=== PATIENT | female | born 1965 | race Caucasian/White ===

== ENCOUNTER 2022-02-01 16:14 | Inpatient (IN) | payer BC ==
[2022-02-01] VITALS (8 sets, daily range): BP systolic 90–172; BP diastolic 60–124
[~2022-02-01] VITALS: Ht 170.2 cm; Wt 128.7 kg
[2022-02-01] MEDS ORDERED: fentaNYL PF VIAL 100 MCG/2 ML VIAL ONE (16:27)
[2022-02-01 16:45] LABS: BASE EXCESS ABG -7 mmol/L (-3-3); HCO3 ABG 19 mmol/L (21-28); PCO2 ABG 39 mmHg (35-46); PO2 ABG 228 mmHg (75-108); SAT O2 ABG 99 % (92-99)
[2022-02-01] MEDS ORDERED: MIDAZOLAM 100mg/100ml NS BAG 100 ML IV ONE ×2 (16:45→17:00)
[2022-02-01] MEDS ORDERED: MIDAZOLAM HCL/PF 5 MG/5 ML VIAL. NS ONE (16:45)
[2022-02-01] MEDS ORDERED: AMIODARONE 150 MG in IV DEXTROSE 5% 100ML 100 ML IV ONE (16:45)
[2022-02-01] MEDS ORDERED: fentaNYL PF VIAL 100 MCG/2 ML VIAL IVP ONE (16:45)
[2022-02-01] MEDS ORDERED: ACETAMINOPHEN 650 MG SUPP.RECT. PR ONE (16:45)
[2022-02-01 16:47] LABS: CORRECTED PCO2 ABG 43 mmHg; CORRECTED PH ABG 7.27; CORRECTED PO2 ABG 240 mmHg
--- NOTE | 2022-02-01 16:48 | RAD ---
XR CHEST 1V 02/01/2022 4:38 PM INDICATION: Intubation COMPARISON: None available TECHNIQUE: Portable frontal view of the chest is provided. FINDINGS: The cardiomediastinal silhouette is within normal limits. Endotracheal tube terminates 1.5 cm above t he level of the zahra. Nasogastric tubes identified coursing below the diaphragm with the distal tip not visualized on this radiograph. The gallbladder. Identified along the left chest. Mild interstitial changes identified in the perihilar distribution. There are no significant pleural effusions. There is no pulmonary vascular congestion. No pneumothorax. No suspicious osseous abnormality. IMPRESSION: Endotracheal tube is identified 1.5 cm above the level of the zahra. This may be retracted 1 to 2 cm . No pneumothorax. Mild interstitial changes are present as may be seen with interstitial edema or interstitial pneumoni tis of infectious/inflammatory etiology. FOR INTERNAL CODING PURPOSES Critical result: Findings discussed with HEIDI COTA MD at 02/01/2022 4:45 PM. RESULT CODE: (C) Electronically signed by: Nasima Nogueira MD (02/01/2022 4:45 PM) [id number]
[2022-02-01 16:50] LABS: FIO2 ABG 100% AC 20 500 5
[2022-02-01 16:56] LABS: BASO # 0.1 x10^3/uL (0.0-0.2); BASO % 0 % (0-3); EOS % 0 % (0-3); HEMATOCRIT 40.8 % (36.0-47.0); HEMOGLOBIN 13.1 g/dL (12.0-15.5); LYMPH # 3.4 x10^3/uL (1.0-4.8); LYMPH % 15 % (24-48); MEAN CORPUSCULAR HEMOGLOBIN 30 pg (25-35); MEAN CORPUSCULAR HGB CONC 32 g/dL (31-37); MEAN CORPUSCULAR VOLUME 92 fL (79-100); MONO # 1.5 x10^3/uL (0.0-1.1); MONO % 7 % (0-9); NEUT # 17.5 x10^3/uL (1.8-7.7); NEUT % 78 % (31-73); PLATELET COUNT 315 x10^3/uL (140-400); RED BLOOD COUNT 4.41 x10^6/uL (3.50-5.40); RED CELL DISTRIBUTION WIDTH 14.5 % (11.5-14.5); WHITE BLOOD COUNT 22.5 x10^3/uL (4.0-11.0)
[2022-02-01] MEDS: AMIODARONE 450 MG in IV DEXTROSE 5% 250 ML IV PRN (16:56)
[2022-02-01] MEDS ORDERED: AMIODARONE 150 MG/3 ML VIAL ONE (17:00)
--- NOTE | 2022-02-01 17:13 | ED.ADGEN ---
General Adult EDM: Chief Complaint: CPR/FULL ARREST HPI: HPI: Patient is a 57 year old female coming in via EMS from home for cardiac arrest. They state on their arrival patient was in V. fib, was given 3 defibrillations, 3 rounds of epinephrine, and lidocaine (unknown amount) with conversion to V. tach patient had spontaneously converted to sinus rhythm by ED presentation. No known medical history. Per patient's daughter who she has been living with patient had been in usual state of health when she first got up this morning and feeling okay. Daughter states that around 10 AM patient complained of feeling cold and went to lay down. Daughter went to check on her around 3:45 PM due to hearing loud snoring. States the patient's eyes were open but she would not respond to her. No bystander CPR started prior to EMS arrival. Daughter is unsure of her medical history but states that she was seen for kidney stones a few weeks ago. States she knows takes "a lot" of Excedrin Migraine and also takes Adderall Review of Systems: Review of Systems: All other systems within normal limits except for as noted in the HPI Current Medications: Current Medications Medications (Trade) Dose Ordered Sig/Katia Start Time Stop Time Status Last Admin Dose Admin Acetaminophen (Tylenol Supp) 650 mg 1X ONCE 02/01/22 16:45 02/01/22 16:46 DC 02/01/22 17:08 650 MG Acetaminophen (Tylenol) 650 mg PRN Q4HRS PRN 02/01/22 17:30 02/02/22 17:29 Amiodarone HCl 150 mg/Dextrose 103 ml @ 618 mls/hr 1X ONCE 02/01/22 16:45 02/01/22 16:54 DC 02/01/22 16:55 618 MLS/HR Amiodarone HCl 450 mg/Dextrose 259 ml @ 34.533 mls/ hr CONT PRN 02/01/22 16:45 02/02/22 16:35 02/01/22 16:56 34.533 MLS/HR Calcium Carbonate/ Glycine (Tums) 500 mg PRN Q3HRS PRN 02/01/22 17:30 Cefepime HCl (Maxipime) 1 gm 1X ONCE 02/01/22 18:30 02/01/22 18:31 Etomidate (Amidate) 20 mg STK-MED ONCE 02/01/22 17:38 02/01/22 17:38 DC Fentanyl Citrate (Fentanyl 2ml Vial) 50 mcg PRN Q1HR PRN 02/01/22 17:30 02/02/22 17:29 Heparin Sodium (Porcine) (Heparin Sodium) 5,000 unit Q8HRS 02/01/22 22:00 Info (Non-Icu Electrolyte Protocol) 1 ea PRN DAILY PRN 02/01/22 17:30 Lorazepam (Ativan Inj) 2 mg STK-MED ONCE 02/01/22 16:27 02/01/22 16:27 DC Midazolam HCl 100 ml @ 1 mls/hr 1X ONCE 02/01/22 17:00 02/05/22 20:59 02/01/22 17:29 1 MLS/HR Midazolam HCl (Versed) 5 mg 1X ONCE 02/01/22 16:45 02/01/22 16:49 DC 02/01/22 16:51 5 MG Ondansetron HCl (Zofran) 4 mg PRN Q8HRS PRN 02/01/22 17:30 02/02/22 17:29 Senna/Docusate Sodium (Senna Plus) 1 tab BID 02/01/22 21:00 Sodium Chloride 1,000 ml @ 100 mls/hr Q10H 02/01/22 17:30 02/02/22 17:29 Succinylcholine Chloride (Anectine) 200 mg STK-MED ONCE 02/01/22 17:39 02/01/22 17:39 DC Vancomycin HCl 2 gm/Sodium Chloride 500 ml @ 250 mls/hr 1X ONCE 02/01/22 18:30 02/01/22 20:29 Allergies: Allergies: Allergies Coded Allergies Type Severity Reaction Last Updated Verified Unable to Assess 02/01/22 No Physical Exam: PE: Constitutional: Well developed, well nourished, no acute distress, non-toxic appearance. [] HENT: Normocephalic, atraumatic, bilateral external ears normal, nose normal. [] Eyes: PERRLA, conjunctiva normal, no discharge. [] Neck: No rigidity, supple, no stridor. [] Cardiovascular: Regular rate and rhythm, brisk cap refill [] Lungs & Thorax: Non labored symmetric respirations, no tachypnea or respiratory distress [] Abdomen: Soft, nondistended. Skin: Warm, dry, no erythema, no rash. [] Back: Unremarkable Extremities: No deformities, range of motion grossly intact, no lower extremity edema [] Neurologic: Alert and oriented X 3, no focal deficits noted. [] Psychologic: Affect normal, judgement normal, mood normal. [] Current Patient Data: Labs: Laboratory Tests Test 02/01/22 16:20 02/01/22 16:31 02/01/22 16:45 White Blood Count 22.5 x10^3/uL (4.0-11.0) H Red Blood Count 4.41 x10^6/uL (3.50-5.40) Hemoglobin 13.1 g/dL (12.0-15.5) Hematocrit 40.8 % (36.0-47.0) Mean Corpuscular Volume 92 fL (79-100) Mean Corpuscular Hemoglobin 30 pg (25-35) Mean Corpuscular Hemoglobin Concent 32 g/dL (31-37) Red Cell Distribution Width 14.5 % (11.5-14.5) Platelet Count 315 x10^3/uL (140-400) Neutrophils (%) (Auto) 78 % (31-73) H Lymphocytes (%) (Auto) 15 % (24-48) L Monocytes (%) (Auto) 7 % (0-9) Eosinophils (%) (Auto) 0 % (0-3) Basophils (%) (Auto) 0 % (0-3) Neutrophils # (Auto) 17.5 x10^3/uL (1.8-7.7) H Lymphocytes # (Auto) 3.4 x10^3/uL (1.0-4.8) Monocytes # (Auto) 1.5 x10^3/uL (0.0-1.1) H Eosinophils # (Auto) 0.0 x10^3/uL (0.0-0.7) Basophils # (Auto) 0.1 x10^3/uL (0.0-0.2) Platelet Estimate Pending Prothrombin Time 14.9 SEC (11.7-14.0) H Prothrombin Time INR 1.2 (0.8-1.1) H Sodium Level 140 mmol/L (136-145) Potassium Level 3.6 mmol/L (3.5-5.1) Chloride Level 101 mmol/L (98-107) Carbon Dioxide Level 23 mmol/L (21-32) Anion Gap 16 (6-14) H Blood Urea Nitrogen 10 mg/dL (7-20) Creatinine 1.4 mg/dL (0.6-1.0) H Estimated GFR (Cockcroft-Gault) 39.0 BUN/Creatinine Ratio 7 (6-20) Glucose Level 222 mg/dL (70-99) H Calcium Level 8.0 mg/dL (8.5-10.1) L Phosphorus Level 4.0 mg/dL (2.6-4.7) Magnesium Level 1.7 mg/dL (1.8-2.4) L Total Bilirubin 0.6 mg/dL (0.2-1.0) Aspartate Amino Transferase (AST) 115 U/L (15-37) H Alanine Aminotransferase (ALT) 93 U/L (14-59) H Alkaline Phosphatase 91 U/L (46-116) Troponin I High Sensitivity 44 ng/L (4-50) AP-Qvp-F-Type Natriuretic Peptide 2321 pg/mL (0-124) H Total Protein 6.9 g/dL (6.4-8.2) Albumin 3.1 g/dL (3.4-5.0) L Albumin/Globulin Ratio 0.8 (1.0-1.7) L Ethyl Alcohol Level < 10 mg/dL (0-10) Urine Collection Type U cath Urine Color Yellow Urine Clarity Clear Urine pH 5.5 (<5.0-8.0) Urine Specific [place] 1.020 (1.000-1.030) Urine Protein Negative mg/dL (NEG-TRACE) Urine Glucose (UA) Negative mg/dL (NEG) Urine Ketones (Stick) Negative mg/dL (NEG) Urine Blood Large (NEG) Urine Nitrite Negative (NEG) Urine Bilirubin Negative (NEG) Urine Urobilinogen Dipstick 0.2 mg/dL (0.2 mg/dL) Urine Leukocyte Esterase Negative (NEG) Urine RBC >40 /HPF (0-2) Urine WBC 5-10 /HPF (0-4) Urine Squamous Epithelial Cells Mod /LPF Urine Bacteria 0 /HPF (0-FEW) Urine Mucus Marked /LPF O2 Saturation 99 % (92-99) Arterial Blood pH 7.30 (7.35-7.45) L Arterial Blood pH (Temp corrected) 7.27 Arterial Blood pCO2 at Patient Temp 39 mmHg (35-46) Arterial Blood pCO2 (Temp correct) 43 mmHg Arterial Blood pO2 at Patient Temp 228 mmHg (75-108) H Arterial Blood pO2 (Temp corrected) 240 mmHg Arterial Blood HCO3 19 mmol/L (21-28) L Arterial Blood Base Excess -7 mmol/L (-3-3) L FiO2 100% ac 20 500 5 Laboratory Tests 02/01/22 16:20 Laboratory Tests 02/01/22 16:20 Vital Signs: Vital Signs Date Time Temp Pulse Resp B/P (MAP) Pulse Ox O2 Delivery O2 Flow Rate FiO2 02/01/22 17:30 96 20 138/71 (93) 100 Ventilator 02/01/22 16:14 103.0 103.0 EKG: EKG: Sinus tachycardia, lateral ischemic changes, Riax deviation, right bundle branch block, ST [] Heart Score: C/O Chest Pain: N/A Risk Factors: Risk Factors: DM, Current or recent (<one month) smoker, HTN, HLP, family history of CAD, obesity. Risk Scores: Score 0 - 3: 2.5% MACE over next 6 weeks - Discharge Home Score 4 - 6: 20.3% MACE over next 6 weeks - Admit for Clinical Observation Score 7 - 10: 72.7% MACE over next 6 weeks - Early Invasive Strategies Radiology/Procedures: Radiology/Procedures: [facility] [address] [place] [address] IMAGING REPORT Signed PATIENT: SURJIT CONNORS ACCOUNT: [id number] : 1965 LOCATION: ER AGE: 57 SEX: F EXAM STATUS: PRE ER ORD. PHYSICIAN: HEIDI COTA MD REASON: intubation PROCEDURE: CHEST AP ONLY XR CHEST 1V 02/01/2022 4:38 PM INDICATION: Intubation COMPARISON: None available TECHNIQUE: Portable frontal view of the chest is provided. FINDINGS: The cardiomediastinal silhouette is within normal limits. Endotracheal tube terminates 1.5 cm above the level of the zahra. Nasogastric tubes identified coursing below the diaphragm with the distal tip not visualized on this radiograph. The gallbladder. Identified along the left chest. Mild interstitial changes identified in the perihilar distribution. There are no significant pleural effusions. There is no pulmonary vascular congestion. No pneumothorax. No suspicious osseous abnormality. IMPRESSION: Endotracheal tube is identified 1.5 cm above the level of the zahra. This may be retracted 1 to 2 cm. No pneumothorax. Mild interstitial changes are present as may be seen with interstitial edema or interstitial pneumonitis of infectious/inflammatory etiology. FOR INTERNAL CODING PURPOSES Critical result: Findings discussed with HEIDI COTA MD at 02/01/2022 4:45 PM. RESULT CODE: (C) Electronically signed by: Matthew Kang MD (02/01/2022 4:45 PM) [id number] DICTATED and SIGNED BY: MATTHEW KANG MD DATE: 02/01/221641 [] Course & Med Decision Making: Course & Med Decision Making Pertinent Labs and Imaging studies reviewed. (See chart for details) Patient has baseline leukocytosis, statin. Antibiotics. Patient started on amiodarone bolus and drip. Patient was intubated in emergent fashion and no consent was obtained. Patient was sedated and paralyzed with etomidate and succinylcholine. A glide scope with a size 4 blade was used, cords were visualized and a size 7.5 endotracheal tube was placed during first attempt. Endotracheal tube cuff was inflated and confirmation established by visualization of the cords passing the tubes, bilateral breath sounds, color change, and chest x-ray. [] Total critical care time: 60 The time involved in the performance of separately reportable/billable procedures was not counted toward critical care time. Due to a high probability of clinically significant, life-threatening deterioration the patient required a high level of care to intervene emergently and I personally spent this critical time directly and personally managing the patient. The critical care time included obtaining a history, examination of the patient, assessment of vital signs, ordering and review of studies, arranging urgent treatment with development of a management plan, evaluation of patient's response to treatment, frequent reassessment, and discussions with other providers and/or family members. Dragon Disclaimer: Dragcasandra Disclaimer: This electronic medical record was generated, in whole or in part, using a voice recognition dictation system. Departure Departure Impression: Primary Impression: Cardiac arrest Additional Impression: Fever Disposition: 09 ADMITTED INPATIENT Admitting Physician: JENNA Condition: CRITICAL Problem Qualifiers HEIDI COTA MD Feb 01, 2022 17:12
[2022-02-01 17:14] LABS: PROTHROMBIN TIME PATIENT 14.9 SEC (11.7-14.0)
[2022-02-01 17:29] LABS: CREATININE 1.4 mg/dL (0.6-1.0); POTASSIUM 3.6 mmol/L (3.5-5.1)
[2022-02-01] MEDS ORDERED: ONDANSETRON PF 4 MG/2 ML VIAL. IVP PRN ×2 (17:30)
[2022-02-01] MEDS ORDERED: ELECTROLYTE (NON-ICU) PROTOCOL. MC PRN (17:30)
[2022-02-01] MEDS ORDERED: fentaNYL PF VIAL 100 MCG/2 ML VIAL IVP PRN (17:30)
[2022-02-01] MEDS ORDERED: CALCIUM CARBONATE 500 MG TAB.CHEW PO PRN (17:30)
[2022-02-01] MEDS ORDERED: ACETAMINOPHEN 325 MG TABLET. PO PRN ×2 (17:30)
[2022-02-01 17:35] LABS: ALBUMIN 3.1 g/dL (3.4-5.0); ALBUMIN/GLOBULIN RATIO 0.8 (1.0-1.7); MAGNESIUM 1.7 mg/dL (1.8-2.4); TOTAL BILIRUBIN 0.6 mg/dL (0.2-1.0); TOTAL PROTEIN 6.9 g/dL (6.4-8.2)
[2022-02-01] MEDS ORDERED: ETOMIDATE 20 MG/10 ML VIAL. IV ONE (17:38)
[2022-02-01] MEDS ORDERED: SUCCINYLCHOLINE 200 MG/10 ML VIAL. ONE (17:39)
[2022-02-01 17:48] LABS: BILIRUBIN,URINE NEGATIVE (NEG); CLARITY,URINE CLEAR; COLOR,URINE YELLOW; NITRITE,URINE NEGATIVE (NEG); PH,URINE 5.5 (<5.0-8.0); PROTEIN,URINE NEGATIVE (NEG-TRACE); UROBILINOGEN,URINE 0.2 mg/dL (0.2 mg/dL)
[2022-02-01 17:50] LABS: BACTERIA,URINE 0 /HPF (0-FEW); RBC,URINE >40 /HPF (0-2)
[2022-02-01 17:57] LABS: BARBITURATES NEG (NEG); BENZODIAZEPINES NEG (NEG); CANNABINOIDS NEG (NEG); COCAINE NEG (NEG); METHADONE NEG (NEG); OPIATES NEG (NEG); PHENCYCLIDINE NEG (NEG)
[2022-02-01 18:16] LABS: AMPHETAMINE/METHAMPHETAMINE NEG (NEG)
[2022-02-01] MEDS: IV NORMAL SALINE 1000ML BAG 1,000 ML IV SCH (18:25)
[2022-02-01] MEDS ORDERED: CEFEPIME HCL IV Push 1 GM VIAL. IVP ONE (18:30)
[2022-02-01] MEDS ORDERED: VANCOMYCIN 2 GM in IV NORMAL SALINE 500ML BAG 500 ML IV ONE (18:30)
[2022-02-01] MEDS ORDERED: ATROPINE 0.5 MG/5 ML DISP.SYRINGE. IV PRN (19:15)
[2022-02-01] MEDS ORDERED: IV NORMAL SALINE 500ML BAG 500 ML IV PRN (19:15)
[2022-02-01] MEDS ORDERED: VECURONIUM BOLUS 10 MG VIAL. IV PRN (19:15)
[2022-02-01] MEDS ORDERED: POLYVINYL ALCOHOL 1.4% OPHTH SOLUTION 15ML BOTTLE. OU PRN (19:15)
--- NOTE | 2022-02-01 19:25 | PDOC1 ---
History and Physical Date of Service: DOS: DATE: 02/01/22 TIME: 19:25 Chief Complaint: Chief Complain: cardiac arrest History of Present Illness: HPI: Report from emergency room as patient intubated and sedated by time I was able to evaluate. Patient is a 57 year old female coming in via EMS from home for cardiac arrest. They state on their arrival patient was in V. fib, was given 3 defibrillations, 3 rounds of epinephrine, and lidocaine (unknown amount) with conversion to V. tach patient had spontaneously converted to sinus rhythm by ED presentation. No known medical history. Per patient's daughter who she has been living with patient had been in usual state of health when she first got up this morning and feeling okay. Daughter states that around 10 AM patient complained of feeling cold and went to lay down. Daughter went to check on her around 3:45 PM due to hearing loud snoring. States the patient's eyes were open but she would not respond to her. No bystander CPR started prior to EMS arrival. Daughter is unsure of her medical history but states that she was seen for kidney stones a few weeks ago. States she knows takes "a lot" of Excedrin Migraine and also takes Adderall Past Medical/Surgical History: PMH/PSH: Unknown Allergies: Allergies: Coded Allergies: Unable to Assess (Unverified , 02/01/22) Family History: Family History: Cannot obtain Social History: Social History: Unknown Current Medications: Current Medications Current Medications Fentanyl Citrate (Fentanyl 2ml Vial) 100 mcg STK-MED ONCE .ROUTE ; Start 02/01/22 at 16:27; Stop 02/01/22 at 16:27; Status DC Lorazepam (Ativan Inj) 2 mg STK-MED ONCE .ROUTE ; Start 02/01/22 at 16:27; Stop 02/01/22 at 16:27; Status DC Acetaminophen (Tylenol Supp) 650 mg 1X ONCE SC Last administered on 02/01/22at 17:08; Start 02/01/22 at 16:45; Stop 02/01/22 at 16:46; Status DC Amiodarone HCl 150 mg/Dextrose 103 ml @ 618 mls/hr 1X ONCE IV Last administered on 02/01/22at 16:55; Start 02/01/22 at 16:45; Stop 02/01/22 at 16:54; Status DC Amiodarone HCl 450 mg/Dextrose 259 ml @ 34.533 mls/ hr CONT PRN IV SEE I/O RECORD Last administered on 02/01/22at 16:56; Start 02/01/22 at 16:45; Stop 02/02/22 at 16:35 Fentanyl Citrate (Fentanyl 2ml Vial) 100 mcg 1X ONCE IVP Last administered on 02/01/22at 16:52; Start 02/01/22 at 16:45; Stop 02/01/22 at 16:49; Status DC Midazolam HCl 100 ml @ 0 mls/hr 1X ONCE IV ; Start 02/01/22 at 16:45; Stop 02/01/22 at 16:46; Status UNV Midazolam HCl (Versed) 5 mg 1X ONCE NS Last administered on 02/01/22at 16:51; Start 02/01/22 at 16:45; Stop 02/01/22 at 16:49; Status DC Midazolam HCl 100 ml @ 1 mls/hr 1X ONCE IV Last administered on 02/01/22at 17:29; Start 02/01/22 at 17:00; Stop 02/05/22 at 20:59 Ondansetron HCl (Zofran) 4 mg PRN Q6HRS PRN IVP NAUSEA/VOMITING; Start 02/01/22 at 17:30 Calcium Carbonate/ Glycine (Tums) 500 mg PRN Q3HRS PRN PO UPSET STOMACH; Start 02/01/22 at 17:30 Info (Non-Icu Electrolyte Protocol) 1 ea PRN DAILY PRN MC SEE COMMENTS; Start 02/01/22 at 17:30 Acetaminophen (Tylenol) 650 mg PRN Q6HRS PRN PO Headaches, Temp > 101.5F; Start 02/01/22 at 17:30 Senna/Docusate Sodium (Senna Plus) 1 tab BID PO ; Start 02/01/22 at 21:00 Heparin Sodium (Porcine) (Heparin Sodium) 5,000 unit Q8HRS SQ ; Start 02/01/22 at 22:00 Ondansetron HCl (Zofran) 4 mg PRN Q8HRS PRN IVP NAUSEA/VOMITING; Start 02/01/22 at 17:30; Stop 02/02/22 at 17:29 Fentanyl Citrate (Fentanyl 2ml Vial) 50 mcg PRN Q1HR PRN IVP PAIN; Start 02/01/22 at 17:30; Stop 02/02/22 at 17:29 Sodium Chloride 1,000 ml @ 100 mls/hr Q10H IV Last administered on 02/01/22at 18:25; Start 02/01/22 at 17:30; Stop 02/02/22 at 17:29 Acetaminophen (Tylenol) 650 mg PRN Q4HRS PRN PO FEVER > 100.3'F; Start 02/01/22 at 17:30; Stop 02/02/22 at 17:29 Etomidate (Amidate) 20 mg STK-MED ONCE IV ; Start 02/01/22 at 17:38; Stop 02/01/22 at 17:38; Status DC Succinylcholine Chloride (Anectine) 200 mg STK-MED ONCE .ROUTE ; Start 02/01/22 at 17:39; Stop 02/01/22 at 17:39; Status DC Cefepime HCl (Maxipime) 1 gm 1X ONCE IVP ; Start 02/01/22 at 18:30; Stop 02/01/22 at 18:31; Status DC Vancomycin HCl 2 gm/Sodium Chloride 500 ml @ 250 mls/hr 1X ONCE IV ; Start 02/01/22 at 18:30; Stop 02/01/22 at 20:29 Fentanyl Citrate 30 ml @ 2.5 mls/hr CONT PRN IV SEE PROTOCOL; Start 02/01/22 at 19:15 Midazolam HCl 100 ml @ 1 mls/hr CONT PRN IV SEE PROTOCOL; Start 02/01/22 at 19:15 Vecuronium [place] (Norcuron Bolus) 6 mg PRN 1X PRN IV VENT INDUCTION; Start 02/01/22 at 19:15; Stop 02/02/22 at 19:14 Chlorhexidine Gluconate (Peridex) 15 ml BID MM ; Start 02/01/22 at 21:00 Glycerin/ Hypromellose/ Polyethylene (Artificial Tears) 1 drop PRN Q1HR PRN OU DRY EYE; Start 02/01/22 at 19:15 Sodium Chloride 500 ml @ 500 mls/hr 1X PRN PRN IV SEE COMMENTS; Start 02/01/22 at 19:15 Atropine Sulfate (ATROPINE 0.5mg SYRINGE) 0.5 mg PRN Q5MIN PRN IV SEE COMMENTS; Start 02/01/22 at 19:15 Famotidine (Pepcid Vial) 20 mg BID IVP ; Start 02/01/22 at 21:00 ROS: Review of Systems Review of System Cannot obtain as patient intubated sedated Physical Exam: Vital Signs: Vital Signs Date Time Temp Pulse Resp B/P (MAP) Pulse Ox O2 Delivery O2 Flow Rate FiO2 02/01/22 17:30 96 20 138/71 (93) 100 Ventilator 02/01/22 16:14 103.0 103.0 Physcial Exam: GEN: No apparent distress. intubated sedated HEENT: Normal cephalic, atraumatic, external auditory canals are patent EYES: Extraocular muscles are intact, pupil are equally round and reactive to light and accommodation MUSCULOSKELETAL: Well developed , well nourished, good range of motion ENDOCRINE: No thyromegaly was palpated LYMPHATICS: No cervical chain or axillary nodes were noted HEMATOPOIETIC: No bruising NECK: Supple, no JVD, no thyromegaly was noted LUNGS: Clear to auscultation in all lung valentin without rhonchi or wheezing HEART: RRR, S!, S2 present. Peripheral pulses intact, no obvious murmurs noted ABDOMEN: Soft, nontender. Positive bowel sounds, no organomegaly, normal bowel sounds EXTREMITIES: Without clubbing, cyanosis, or edema. Pedal pulses intact. Negative Homans sign NEUROLOGIC: Normal speech and tone. A&O x 3, moves all extremities, no obvious focal deficits PSYCHIATRIC: Normal affect, normal mood. Stable SKIN: No ulcerations or rashes, good skin turgor, no jaundice VASCULAR: Good capillary refill, neurovascular bundle appears to be intact Labs: Labs: Laboratory Tests Test 02/01/22 16:20 02/01/22 16:31 02/01/22 16:45 White Blood Count 22.5 x10^3/uL (4.0-11.0) Red Blood Count 4.41 x10^6/uL (3.50-5.40) Hemoglobin 13.1 g/dL (12.0-15.5) Hematocrit 40.8 % (36.0-47.0) Mean Corpuscular Volume 92 fL (79-100) Mean Corpuscular Hemoglobin 30 pg (25-35) Mean Corpuscular Hemoglobin Concent 32 g/dL (31-37) Red Cell Distribution Width 14.5 % (11.5-14.5) Platelet Count 315 x10^3/uL (140-400) Neutrophils (%) (Auto) 78 % (31-73) Lymphocytes (%) (Auto) 15 % (24-48) Monocytes (%) (Auto) 7 % (0-9) Eosinophils (%) (Auto) 0 % (0-3) Basophils (%) (Auto) 0 % (0-3) Neutrophils # (Auto) 17.5 x10^3/uL (1.8-7.7) Lymphocytes # (Auto) 3.4 x10^3/uL (1.0-4.8) Monocytes # (Auto) 1.5 x10^3/uL (0.0-1.1) Eosinophils # (Auto) 0.0 x10^3/uL (0.0-0.7) Basophils # (Auto) 0.1 x10^3/uL (0.0-0.2) Prothrombin Time 14.9 SEC (11.7-14.0) Prothromb Time International Ratio 1.2 (0.8-1.1) Sodium Level 140 mmol/L (136-145) Potassium Level 3.6 mmol/L (3.5-5.1) Chloride Level 101 mmol/L (98-107) Carbon Dioxide Level 23 mmol/L (21-32) Anion Gap 16 (6-14) Blood Urea Nitrogen 10 mg/dL (7-20) Creatinine 1.4 mg/dL (0.6-1.0) Estimated GFR (Cockcroft-Gault) 39.0 BUN/Creatinine Ratio 7 (6-20) Glucose Level 222 mg/dL (70-99) Lactic Acid Level 9.0 mmol/L (0.4-2.0) Calcium Level 8.0 mg/dL (8.5-10.1) Phosphorus Level 4.0 mg/dL (2.6-4.7) Magnesium Level 1.7 mg/dL (1.8-2.4) Total Bilirubin 0.6 mg/dL (0.2-1.0) Aspartate Amino Transf (AST/SGOT) 115 U/L (15-37) Alanine Aminotransferase (ALT/SGPT) 93 U/L (14-59) Alkaline Phosphatase 91 U/L (46-116) Troponin I High Sensitivity 44 ng/L (4-50) EI-Gug-B-Type Natriuretic Peptide 2321 pg/mL (0-124) Total Protein 6.9 g/dL (6.4-8.2) Albumin 3.1 g/dL (3.4-5.0) Albumin/Globulin Ratio 0.8 (1.0-1.7) Ethyl Alcohol Level < 10 mg/dL (0-10) Urine Collection Type U cath Urine Color Yellow Urine Clarity Clear Urine pH 5.5 (<5.0-8.0) Urine Specific [place] 1.020 (1.000-1.030) Urine Protein Negative mg/dL (NEG-TRACE) Urine Glucose (UA) Negative mg/dL (NEG) Urine Ketones (Stick) Negative mg/dL (NEG) Urine Blood Large (NEG) Urine Nitrite Negative (NEG) Urine Bilirubin Negative (NEG) Urine Urobilinogen Dipstick 0.2 mg/dL (0.2 mg/dL) Urine Leukocyte Esterase Negative (NEG) Urine RBC >40 /HPF (0-2) Urine WBC 5-10 /HPF (0-4) Urine Squamous Epithelial Cells Mod /LPF Urine Bacteria 0 /HPF (0-FEW) Urine Mucus Marked /LPF Urine Opiates Screen Neg (NEG) Urine Methadone Screen Neg (NEG) Urine Barbiturates Neg (NEG) Urine Phencyclidine Screen Neg (NEG) Urine Amphetamine/Methamphetamine Neg (NEG) Urine Benzodiazepines Screen Neg (NEG) Urine Cocaine Screen Neg (NEG) Urine Cannabinoids Screen Neg (NEG) Urine Ethyl Alcohol Neg (NEG) O2 Saturation 99 % (92-99) Arterial Blood pH 7.30 (7.35-7.45) Arterial Blood pH (Temp corrected) 7.27 Arterial Blood pCO2 at Patient Temp 39 mmHg (35-46) Arterial Blood pCO2 (Temp correct) 43 mmHg Arterial Blood pO2 at Patient Temp 228 mmHg (75-108) Arterial Blood pO2 (Temp corrected) 240 mmHg Arterial Blood HCO3 19 mmol/L (21-28) Arterial Blood Base Excess -7 mmol/L (-3-3) FiO2 100% ac 20 500 5 Laboratory Tests Test 02/01/22 16:20 02/01/22 16:31 02/01/22 16:45 White Blood Count 22.5 x10^3/uL (4.0-11.0) Red Blood Count 4.41 x10^6/uL (3.50-5.40) Hemoglobin 13.1 g/dL (12.0-15.5) Hematocrit 40.8 % (36.0-47.0) Mean Corpuscular Volume 92 fL (79-100) Mean Corpuscular Hemoglobin 30 pg (25-35) Mean Corpuscular Hemoglobin Concent 32 g/dL (31-37) Red Cell Distribution Width 14.5 % (11.5-14.5) Platelet Count 315 x10^3/uL (140-400) Neutrophils (%) (Auto) 78 % (31-73) Lymphocytes (%) (Auto) 15 % (24-48) Monocytes (%) (Auto) 7 % (0-9) Eosinophils (%) (Auto) 0 % (0-3) Basophils (%) (Auto) 0 % (0-3) Neutrophils # (Auto) 17.5 x10^3/uL (1.8-7.7) Lymphocytes # (Auto) 3.4 x10^3/uL (1.0-4.8) Monocytes # (Auto) 1.5 x10^3/uL (0.0-1.1) Eosinophils # (Auto) 0.0 x10^3/uL (0.0-0.7) Basophils # (Auto) 0.1 x10^3/uL (0.0-0.2) Prothrombin Time 14.9 SEC (11.7-14.0) Prothromb Time International Ratio 1.2 (0.8-1.1) Sodium Level 140 mmol/L (136-145) Potassium Level 3.6 mmol/L (3.5-5.1) Chloride Level 101 mmol/L (98-107) Carbon Dioxide Level 23 mmol/L (21-32) Anion Gap 16 (6-14) Blood Urea Nitrogen 10 mg/dL (7-20) Creatinine 1.4 mg/dL (0.6-1.0) Estimated GFR (Cockcroft-Gault) 39.0 BUN/Creatinine Ratio 7 (6-20) Glucose Level 222 mg/dL (70-99) Lactic Acid Level 9.0 mmol/L (0.4-2.0) Calcium Level 8.0 mg/dL (8.5-10.1) Phosphorus Level 4.0 mg/dL (2.6-4.7) Magnesium Level 1.7 mg/dL (1.8-2.4) Total Bilirubin 0.6 mg/dL (0.2-1.0) Aspartate Amino Transf (AST/SGOT) 115 U/L (15-37) Alanine Aminotransferase (ALT/SGPT) 93 U/L (14-59) Alkaline Phosphatase 91 U/L (46-116) Troponin I High Sensitivity 44 ng/L (4-50) KL-Jce-T-Type Natriuretic Peptide 2321 pg/mL (0-124) Total Protein 6.9 g/dL (6.4-8.2) Albumin 3.1 g/dL (3.4-5.0) Albumin/Globulin Ratio 0.8 (1.0-1.7) Ethyl Alcohol Level < 10 mg/dL (0-10) Urine Collection Type U cath Urine Color Yellow Urine Clarity Clear Urine pH 5.5 (<5.0-8.0) Urine Specific [place] 1.020 (1.000-1.030) Urine Protein Negative mg/dL (NEG-TRACE) Urine Glucose (UA) Negative mg/dL (NEG) Urine Ketones (Stick) Negative mg/dL (NEG) Urine Blood Large (NEG) Urine Nitrite Negative (NEG) Urine Bilirubin Negative (NEG) Urine Urobilinogen Dipstick 0.2 mg/dL (0.2 mg/dL) Urine Leukocyte Esterase Negative (NEG) Urine RBC >40 /HPF (0-2) Urine WBC 5-10 /HPF (0-4) Urine Squamous Epithelial Cells Mod /LPF Urine Bacteria 0 /HPF (0-FEW) Urine Mucus Marked /LPF Urine Opiates Screen Neg (NEG) Urine Methadone Screen Neg (NEG) Urine Barbiturates Neg (NEG) Urine Phencyclidine Screen Neg (NEG) Urine Amphetamine/Methamphetamine Neg (NEG) Urine Benzodiazepines Screen Neg (NEG) Urine Cocaine Screen Neg (NEG) Urine Cannabinoids Screen Neg (NEG) Urine Ethyl Alcohol Neg (NEG) O2 Saturation 99 % (92-99) Arterial Blood pH 7.30 (7.35-7.45) Arterial Blood pH (Temp corrected) 7.27 Arterial Blood pCO2 at Patient Temp 39 mmHg (35-46) Arterial Blood pCO2 (Temp correct) 43 mmHg Arterial Blood pO2 at Patient Temp 228 mmHg (75-108) Arterial Blood pO2 (Temp corrected) 240 mmHg Arterial Blood HCO3 19 mmol/L (21-28) Arterial Blood Base Excess -7 mmol/L (-3-3) FiO2 100% ac 20 500 5 Assessment/Plan Assessment/Plan Acute hypoxic respiratory failure secondary to bacterial pneumonia versus PE? vs CVA?, kidney stone with hydronephrosis Admit patient to ICU Pulmonary consult for vent management Empiric antibiotics CT chest results pending if PE present start on heparin drip Urology consulted for kidney stone hydronephrosis Otherwise continue current measures 45 min CC time Justifications for Admission Other Justification CLARIBEL MANN MD Feb 01, 2022 19:25
[2022-02-01 19:26] LABS: % BANDS 19 % (0-9); % LYMPHS 12 % (24-48); % METAS 1 % (0-0); % MONOS 6 % (0-10); % SEGS 62 % (35-66); PLT ESTIMATE ADEQUATE (ADEQUATE)
--- NOTE | 2022-02-01 19:50 | RAD ---
Exam: CT head INDICATION: Cardiac arrest TECHNIQUE: Sequential axial images through the head were obtained without the administration of IV co ntrast. Exposure: One or more of the following in the visualized dose reduction techniques were utilized for this examination: 1. Automated exposure control 2. Adjustment of the MA and/or KV according to patient size 3. Use of iterative of reconstructive technique Comparisons: None FINDINGS: No focal parenchymal lesion or hemorrhage is identified. There is no midline shift or sulcal effaceme nt. Mild patchy evidence in the periventricular white matter. No acute vascular territory infarction is i dentified. Anglin-white distinction is preserved. The ventricular system is within normal limits without compression hydrocephalus. The basal cisterns are well maintained. The visualized portions of the paranasal sinuses and mastoid air cells are well-pneumatized. No acute fractures. IMPRESSION: Mild small vessel ischemic change, technically age indeterminate without recent prior imaging. Electronically signed by: Daphne Reynoso MD (02/01/2022 7:47 PM) [facility]
--- NOTE | 2022-02-01 20:01 | RAD ---
Exam: CT of chest, abdomen and pelvis without contrast INDICATION: Sepsis TECHNIQUE: Sequential axial images through the chest, abdomen and pelvis obtained without IV contrast . Sagittal and coronal reformatted images were reconstructed from the axial data and reviewed. Exposure: One or more of the following in the visualized dose reduction techniques were utilized for this examination: 1. Automated exposure control 2. Adjustment of the MA and/or KV according to patient size 3. Use of iterative of reconstructive technique Comparisons: None FINDINGS: Visualized portions of the thyroid are unremarkable. No enlarged mediastinal lymph nodes. Heart is moderately enlarged. No pericardial effusion. Thoracic aorta has normal course and caliber. Pulmonary artery is not enlarged. Endotracheal tube noted in the trachea. No pneumothorax. Patchy consolidative changes noted in the ri ght lung and left lower lobe. No pleural effusion or thickening. Evaluation of solid organs limited secondary to noncontrast technique. Liver, spleen, pancreas, gallbladder and adrenals are unremarkable. No perinephric inflammation. There is mild left-sided hydronephrosis with a 7 mm in calculus at the d istal left ureter. Bladder is decompressed not well evaluated. Uterus is not enlarged. No abnormal adnexal mass. Large and small bowel is unremarkable. Appendix is normal. No free intra-abdominal air or fluid. No o bstruction. Abdominal aorta has normal course and caliber. No enlarged abdominal lymph nodes are identified. No suspicious osseous lesions or acute fractures. IMPRESSION: 1. Ascending with calculus the distal left ureter causing mild left-sided hydronephrosis. 2. Patchy consolidative changes noted in the right left lung described above may be infectious or in flammatory in etiology. Electronically signed by: Daphne Reynoso MD (02/01/2022 7:58 PM) [facility]
[2022-02-01] MEDS: SENNOSIDES/DOCUSATE 8.6/50MG TABLET. PO SCH (21:00)
[2022-02-01] MEDS: CHLORHEXIDINE 0.12% 15 ML MOUTHWASH. MM SCH (21:00)
[2022-02-01] MEDS: FAMOTIDINE 20 MG/2 ML VIAL IVP SCH (21:36)
[2022-02-01] MEDS: HEPARIN for SUB-Q USE 5,000 UNIT/ML VIAL. SQ SCH (21:37)
--- NOTE | 2022-02-01 22:02 | NUR ---
ADMIT from ER- see Dr Reich's H&P. no family present. Unable to complete med list and admission.
[2022-02-02] VITALS (23 sets, daily range): BP systolic 67–128; BP diastolic 45–85
[2022-02-02] MEDS: AMIODARONE 450 MG in IV DEXTROSE 5% 250 ML IV PRN ×2 (00:46→20:26)
[2022-02-02] MEDS: MIDAZOLAM 100mg/100ml NS BAG 100 ML IV PRN ×2 (00:48→14:55)
[2022-02-02] MEDS: IV NORMAL SALINE 1000ML BAG 1,000 ML IV SCH ×2 (03:30→13:30)
[2022-02-02] MEDS ORDERED: MAGNESIUM SULFATE 2GM 50 ML IV ONE (04:45)
[2022-02-02] MEDS: POTASSIUM CHLORIDE 10MEQ 100 ML IV SCH ×8 (05:01→14:46)
--- NOTE | 2022-02-02 05:13 | NUR ---
noted several runs of V-tach. with this last 7 beat run noted a increase of heart rate to 152. Dr Waller notified orders received
[2022-02-02 06:07] LABS: BASO % 0 % (0-3); EOS % 0 % (0-3); HEMATOCRIT 40.9 % (36.0-47.0); HEMOGLOBIN 13.3 g/dL (12.0-15.5); LYMPH # 1.2 x10^3/uL (1.0-4.8); LYMPH % 6 % (24-48); MEAN CORPUSCULAR HEMOGLOBIN 29 pg (25-35); MEAN CORPUSCULAR HGB CONC 33 g/dL (31-37); MEAN CORPUSCULAR VOLUME 89 fL (79-100); MONO # 1.3 x10^3/uL (0.0-1.1); MONO % 7 % (0-9); NEUT # 16.8 x10^3/uL (1.8-7.7); NEUT % 87 % (31-73); PLATELET COUNT 263 x10^3/uL (140-400); RED BLOOD COUNT 4.58 x10^6/uL (3.50-5.40); RED CELL DISTRIBUTION WIDTH 14.7 % (11.5-14.5); WHITE BLOOD COUNT 19.3 x10^3/uL (4.0-11.0)
[2022-02-02 06:14] LABS: ALBUMIN 3.1 g/dL (3.4-5.0); ALBUMIN/GLOBULIN RATIO 0.8 (1.0-1.7); CALCIUM 8.2 mg/dL (8.5-10.1); CREATININE 1.6 mg/dL (0.6-1.0); GFR 33.5; TOTAL BILIRUBIN 1.1 mg/dL (0.2-1.0); TOTAL PROTEIN 6.9 g/dL (6.4-8.2)
[2022-02-02 06:22] LABS: POTASSIUM 2.9 mmol/L (3.5-5.1)
[2022-02-02] MEDS: HEPARIN for SUB-Q USE 5,000 UNIT/ML VIAL. SQ SCH (06:23)
--- NOTE | 2022-02-02 08:12 | RAD ---
XR CHEST 1V INDICATION: intubation 102 COMPARISON STUDY: 02/01/2022. FINDINGS: Life Support Devices: Endotracheal tube 4.7 cm above the zahra. Enteric tube courses into the stomac h and beyond the inferior [id number]. Lungs: Normal lung volume. Bilateral ill-defined opacities, increased in the left base. Pleura: Small left pleural effusion. Heart and Mediastinum: Stable cardiomediastinal silhouette and great vessels. Bones and Soft Tissues: Stable regional skeleton and soft tissues. IMPRESSION: 1. Bilateral ill-defined opacities, increased in the left base. 2. Small left pleural effusion. 3. Life support devices as above. Electronically signed by: Narendra Barnes MD (02/02/2022 8:10 AM) [id number]
[2022-02-02] MEDS ORDERED: POTASSIUM CHLORIDE 10MEQ 100 ML IV SCH (08:30)
[2022-02-02 08:32] LABS: BASE EXCESS ABG 0 mmol/L (-3-3); HCO3 ABG 23 mmol/L (21-28); PCO2 ABG 31 mmHg (35-46); PO2 ABG 120 mmHg (75-108); SAT O2 ABG 98 % (92-99)
[2022-02-02 08:34] LABS: FIO2 ABG 50
[2022-02-02] MEDS: SENNOSIDES/DOCUSATE 8.6/50MG TABLET. PO SCH ×2 (09:00→22:16)
[2022-02-02 09:01] LABS: SALIC 0.2 mg/dL (2.8-20.0)
--- NOTE | 2022-02-02 10:14 | CONS ---
DATE OF CONSULTATION: 02/02/2022 PULMONARY CONSULTATION ATTENDING PHYSICIAN: Michael Reich MD REASON FOR CONSULTATION: Cardiac arrest, respiratory failure. HISTORY OF PRESENT ILLNESS: The patient is a 57-year-old obese female with a BMI of 45.7. The patient was brought in to the hospital ER by EMS after she was noted to be in V-fib arrest. She received 3 defibrillations, 2 rounds of epinephrine and lidocaine. She then converted to be V-tach and then had a spontaneous conversion to sinus rhythm. The patient's daughter who has been living with the patient said that the patient has been in the usual health. The daughter states that around 10:00 a.m., the patient complained of feeling cold and went to lie down. Then, the daughter went to check her around 3:45 p.m. due to hearing loud snoring. The patient was not responsive. The patient's daughter then called EMS. The patient takes Excedrin for migraines. The patient was intubated. Post-intubation, she had a blood gas, which showed a pH of 7.30, pCO2 of 39, pO2 of 228, bicarb of 19 and this morning on 50% FiO2, assist control of 20, pH of 7.48, pCO2 of 31 and a pO2 of 120. Her CT of the chest was reviewed. There were some patchy upper lobe infiltrates and basal atelectasis. Chest x-ray today shows minimal atelectasis, left base. The patient did have episodes of V-fib and V-tach last night, but responded to amiodarone. Awaiting Cardiology recommendations. PAST MEDICAL HISTORY: Significant for underlying morbid obesity. Otherwise unknown past medical history. SURGERIES: Unknown. SOCIAL HISTORY: Not available. FAMILY HISTORY: Unable to obtain. ALLERGIES: Not available either. MEDICATIONS: Currently were all reviewed including heparin for DVT prophylaxis, Pepcid for stress ulcer prophylaxis and amiodarone. REVIEW OF SYSTEMS: Unable to obtain from the patient as she is on the ventilator. PHYSICAL EXAMINATION: VITAL SIGNS: Blood pressure is stable, systolic in the high 90s, afebrile, pulse is 100. HEENT: Pupils sluggish to react, but symmetric. NECK: Supple. LUNGS: With diminished breath sounds bilaterally. CARDIOVASCULAR: With a regular rate. ABDOMEN: Soft, markedly obese. EXTREMITIES: With 1+ pitting edema. LABORATORY DATA: Reviewed. Urine drug screen negative. BUN is 16, creatinine 1.6. AST 239, ALT 112, albumin 3.1. Potassium was 2.9. Lactic acid was 9.0, but down to 2.1. INR 1.2. White cell count was 22.5 and then 19.3. Hemoglobin is stable. Platelets 263. IMPRESSION: 1. Acute hypoxic respiratory failure secondary to cardiac arrest and suspected aspiration. 2. Status post ventricular fibrillation and ventricular tachycardia cardiac arrest, requiring multiple shocks, epinephrine with return of spontaneous circulation. The duration since she was found unresponsive was probably very long and as a result, she was not considered a candidate for hypothermia. 3. Abnormal CT chest with upper lobe infiltrates and some basal atelectasis. Suspect component of aspiration. 4. Leukocytosis. 5. Acute kidney injury. 6. Hypokalemia. May be contributing to ventricular fibrillation and ventricular tachycardia. 7. Lactic acidosis secondary to shock, now resolved. 8. Abnormal liver function tests secondary to shock liver. RECOMMENDATIONS: 1. Continue present assist control mode. Follow ABGs and make necessary adjustments. 2. Await Cardiology recommendation regarding need for cardiac catheterization. Currently on amiodarone. 3. Replace electrolytes. 4. Monitor liver function test. 5. Once oxygenation continues to improve, we will stop sedation and assess mental status. 6. We will also reach out to the family about discussion of goals of care once seen by Cardiology. 7. Continue DVT prophylaxis. 8. Start enteral nutrition. 9. Stress ulcer prophylaxis. 10. Replace potassium per protocol. 11. Discussed with RN and RT. Chart reviewed, imaging studies reviewed. Total critical care time [address]: Rula TID: [id number]
--- NOTE | 2022-02-02 10:51 | EKG ---
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
--- NOTE | 2022-02-02 10:57 | PDOC2 ---
CYNTHIA PEDRAZA 02/02/22 1056: UROLOGY CONSULT DOS: DATE: 02/02/22 TIME: 10:49 Reason for Consult: Kidney stone 57F found down at home and admitted status post cardiac arrest. Patient was able to obtain ROSC after CPR in the ER. On arrival, patient was febrile. She has a leukocytosis with white count of 22.5 and lactate of 9.0. She had a CT scan done of her chest abdomen pelvis showing pulmonary infiltrates. Urology was consulted as CT imaging also shows 7 mm left distal ureteral calculi with obstruction. UA on arrival did not show any signs of infection. Her creatinine is elevated at 1.6. Past medical history is not known as patient is on the ventilator and sedated. History primarily obtained from nursing and ER report. ROS Unable to obtain, on ventilator Current Medications Current Medications Fentanyl Citrate (Fentanyl 2ml Vial) 100 mcg STK-MED ONCE .ROUTE ; Start 02/01/22 at 16:27; Stop 02/01/22 at 16:27; Status DC Lorazepam (Ativan Inj) 2 mg STK-MED ONCE .ROUTE ; Start 02/01/22 at 16:27; Stop 02/01/22 at 16:27; Status DC Acetaminophen (Tylenol Supp) 650 mg 1X ONCE LA Last administered on 02/01/22at 17:08; Start 02/01/22 at 16:45; Stop 02/01/22 at 16:46; Status DC Amiodarone HCl 150 mg/Dextrose 103 ml @ 618 mls/hr 1X ONCE IV Last administered on 02/01/22at 16:55; Start 02/01/22 at 16:45; Stop 02/01/22 at 16:54; Status DC Amiodarone HCl 450 mg/Dextrose 259 ml @ 34.533 mls/ hr CONT PRN IV SEE I/O RECORD Last administered on 02/02/22at 00:46; Start 02/01/22 at 16:45; Stop 02/02/22 at 16:35 Fentanyl Citrate (Fentanyl 2ml Vial) 100 mcg 1X ONCE IVP Last administered on 02/01/22at 16:52; Start 02/01/22 at 16:45; Stop 02/01/22 at 16:49; Status DC Midazolam HCl 100 ml @ 0 mls/hr 1X ONCE IV ; Start 02/01/22 at 16:45; Stop 02/01/22 at 16:46; Status UNV Midazolam HCl (Versed) 5 mg 1X ONCE NS Last administered on 02/01/22at 16:51; Start 02/01/22 at 16:45; Stop 02/01/22 at 16:49; Status DC Midazolam HCl 100 ml @ 1 mls/hr 1X ONCE IV Last administered on 02/01/22at 17:29; Start 02/01/22 at 17:00; Stop 02/02/22 at 08:31; Status DC Ondansetron HCl (Zofran) 4 mg PRN Q6HRS PRN IVP NAUSEA/VOMITING; Start 02/01/22 at 17:30 Calcium Carbonate/ Glycine (Tums) 500 mg PRN Q3HRS PRN PO UPSET STOMACH; Start 02/01/22 at 17:30 Info (Non-Icu Electrolyte Protocol) 1 ea PRN DAILY PRN MC SEE COMMENTS; Start 02/01/22 at 17:30 Acetaminophen (Tylenol) 650 mg PRN Q6HRS PRN PO Headaches, Temp > 101.5F Last administered on 02/02/22at 05:23; Start 02/01/22 at 17:30 Senna/Docusate Sodium (Senna Plus) 1 tab BID PO ; Start 02/01/22 at 21:00 Heparin Sodium (Porcine) (Heparin Sodium) 5,000 unit Q8HRS SQ Last administered on 02/02/22at 06:23; Start 02/01/22 at 22:00 Ondansetron HCl (Zofran) 4 mg PRN Q8HRS PRN IVP NAUSEA/VOMITING; Start 02/01/22 at 17:30; Stop 02/02/22 at 08:32; Status DC Fentanyl Citrate (Fentanyl 2ml Vial) 50 mcg PRN Q1HR PRN IVP PAIN; Start 02/01/22 at 17:30; Stop 02/02/22 at 08:31; Status DC Sodium Chloride 1,000 ml @ 100 mls/hr Q10H IV Last administered on 02/02/22at 03:30; Start 02/01/22 at 17:30; Stop 02/02/22 at 17:29 Acetaminophen (Tylenol) 650 mg PRN Q4HRS PRN PO FEVER > 100.3'F; Start 02/01/22 at 17:30; Stop 02/02/22 at 08:30; Status DC Etomidate (Amidate) 20 mg STK-MED ONCE IV ; Start 02/01/22 at 17:38; Stop 02/01/22 at 17:38; Status DC Succinylcholine Chloride (Anectine) 200 mg STK-MED ONCE .ROUTE ; Start 02/01/22 at 17:39; Stop 02/01/22 at 17:39; Status DC Cefepime HCl (Maxipime) 1 gm 1X ONCE IVP Last administered on 02/01/22at 21:27; Start 02/01/22 at 18:30; Stop 02/01/22 at 18:31; Status DC Vancomycin HCl 2 gm/Sodium Chloride 500 ml @ 250 mls/hr 1X ONCE IV Last administered on 02/01/22at 21:27; Start 02/01/22 at 18:30; Stop 02/01/22 at 20:29; Status DC Fentanyl Citrate 30 ml @ 2.5 mls/hr CONT PRN IV SEE PROTOCOL Last administered on 02/02/22at 03:17; Start 02/01/22 at 19:15 Midazolam HCl 100 ml @ 1 mls/hr CONT PRN IV SEE PROTOCOL Last administered on at 00:48; Start 02/01/22 at 19:15 Vecuronium [place] (Norcuron Bolus) 6 mg PRN 1X PRN IV VENT INDUCTION; Start 02/01/22 at 19:15; Stop 02/02/22 at 09:18; Status DC Chlorhexidine Gluconate (Peridex) 15 ml BID MM Last administered on 02/01/22at 21:00; Start 02/01/22 at 21:00 Glycerin/ Hypromellose/ Polyethylene (Artificial Tears) 1 drop PRN Q1HR PRN OU DRY EYE; Start 02/01/22 at 19:15 Sodium Chloride 500 ml @ 500 mls/hr 1X PRN PRN IV SEE COMMENTS Last administered on 02/01/22at 19:00; Start 02/01/22 at 19:15 Atropine Sulfate (ATROPINE 0.5mg SYRINGE) 0.5 mg PRN Q5MIN PRN IV SEE COMMENTS; Start 02/01/22 at 19:15 Famotidine (Pepcid Vial) 20 mg BID IVP Last administered on 02/01/22at 21:36; Start 02/01/22 at 21:00 Magnesium Sulfate 50 ml @ 25 mls/hr 1X ONCE IV Last administered on 02/02/22at 05:21; Start 02/02/22 at 04:45; Stop 02/02/22 at 06:44; Status DC Potassium Chloride/Water 100 ml @ 100 mls/hr Q1H IV Last administered on 02/02/22at 08:09; Start 02/02/22 at 05:00; Stop 02/02/22 at 09:03; Status DC Potassium Chloride/Water 100 ml @ 100 mls/hr Q1H IV ; Start 02/02/22 at 08:30; Stop 02/02/22 at 12:29; Status UNV Potassium Chloride/Water 100 ml @ 100 mls/hr Q1H IV ; Start 02/02/22 at 09:00; Stop 02/02/22 at 12:59 Ampicillin Sodium/ Sulbactam Sodium 3 gm/Sodium Chloride 100 ml @ 200 mls/hr Q6HRS IV ; Start 02/02/22 at 12:00 Allergies: Coded Allergies: No Known Drug Allergies (Unverified , 02/02/22) Physical Examination GENERAL: Sedated, on ventilator SKIN: warm, dry RESPIRATORY: Aerating well, symmetrical expansion, ventilator dependent GI: Soft, nontender, no guarding, no rebound : Normal anatomy, Perea in place draining clear yellow urine MUSCULOSKELETAL: No pedal edema noted NEURO: Unable to assess PSYCHIATRIC: Unable to assess DOES THIS PATIENT HAVE URINARY: Yes VITALS Vital Signs Date Time Temp Pulse Resp B/P (MAP) Pulse Ox O2 Delivery O2 Flow Rate FiO2 02/02/22 09:27 99 Ventilator 02/02/22 06:00 98 22 90/56 02/02/22 04:00 99.0 99.0 Labs Laboratory Tests Test 02/01/22 16:20 02/01/22 16:31 02/01/22 16:45 02/01/22 19:12 White Blood Count 22.5 x10^3/uL (4.0-11.0) Red Blood Count 4.41 x10^6/uL (3.50-5.40) Hemoglobin 13.1 g/dL (12.0-15.5) Hematocrit 40.8 % (36.0-47.0) Mean Corpuscular Volume 92 fL (79-100) Mean Corpuscular Hemoglobin 30 pg (25-35) Mean Corpuscular Hemoglobin Concent 32 g/dL (31-37) Red Cell Distribution Width 14.5 % (11.5-14.5) Platelet Count 315 x10^3/uL (140-400) Neutrophils (%) (Auto) 78 % (31-73) Lymphocytes (%) (Auto) 15 % (24-48) Monocytes (%) (Auto) 7 % (0-9) Eosinophils (%) (Auto) 0 % (0-3) Basophils (%) (Auto) 0 % (0-3) Neutrophils # (Auto) 17.5 x10^3/uL (1.8-7.7) Lymphocytes # (Auto) 3.4 x10^3/uL (1.0-4.8) Monocytes # (Auto) 1.5 x10^3/uL (0.0-1.1) Eosinophils # (Auto) 0.0 x10^3/uL (0.0-0.7) Basophils # (Auto) 0.1 x10^3/uL (0.0-0.2) Segmented Neutrophils % 62 % (35-66) Band Neutrophils % 19 % (0-9) Lymphocytes % 12 % (24-48) Monocytes % 6 % (0-10) Metamyelocytes % 1 % (0-0) Platelet Estimate Adequate (ADEQUATE) Prothrombin Time 14.9 SEC (11.7-14.0) Prothromb Time International Ratio 1.2 (0.8-1.1) Sodium Level 140 mmol/L (136-145) Potassium Level 3.6 mmol/L (3.5-5.1) Chloride Level 101 mmol/L (98-107) Carbon Dioxide Level 23 mmol/L (21-32) Anion Gap 16 (6-14) Blood Urea Nitrogen 10 mg/dL (7-20) Creatinine 1.4 mg/dL (0.6-1.0) Estimated GFR (Cockcroft-Gault) 39.0 BUN/Creatinine Ratio 7 (6-20) Glucose Level 222 mg/dL (70-99) Lactic Acid Level 9.0 mmol/L (0.4-2.0) Calcium Level 8.0 mg/dL (8.5-10.1) Phosphorus Level 4.0 mg/dL (2.6-4.7) Magnesium Level 1.7 mg/dL (1.8-2.4) Total Bilirubin 0.6 mg/dL (0.2-1.0) Aspartate Amino Transf (AST/SGOT) 115 U/L (15-37) Alanine Aminotransferase (ALT/SGPT) 93 U/L (14-59) Alkaline Phosphatase 91 U/L (46-116) Troponin I High Sensitivity 44 ng/L (4-50) FB-Tys-W-Type Natriuretic Peptide 2321 pg/mL (0-124) Total Protein 6.9 g/dL (6.4-8.2) Albumin 3.1 g/dL (3.4-5.0) Albumin/Globulin Ratio 0.8 (1.0-1.7) Ethyl Alcohol Level < 10 mg/dL (0-10) Urine Collection Type U cath Urine Color Yellow Urine Clarity Clear Urine pH 5.5 (<5.0-8.0) Urine Specific [place] 1.020 (1.000-1.030) Urine Protein Negative mg/dL (NEG-TRACE) Urine Glucose (UA) Negative mg/dL (NEG) Urine Ketones (Stick) Negative mg/dL (NEG) Urine Blood Large (NEG) Urine Nitrite Negative (NEG) Urine Bilirubin Negative (NEG) Urine Urobilinogen Dipstick 0.2 mg/dL (0.2 mg/dL) Urine Leukocyte Esterase Negative (NEG) Urine RBC >40 /HPF (0-2) Urine WBC 5-10 /HPF (0-4) Urine Squamous Epithelial Cells Mod /LPF Urine Bacteria 0 /HPF (0-FEW) Urine Mucus Marked /LPF Urine Opiates Screen Neg (NEG) Urine Methadone Screen Neg (NEG) Urine Barbiturates Neg (NEG) Urine Phencyclidine Screen Neg (NEG) Urine Amphetamine/Methamphetamine Neg (NEG) Urine Benzodiazepines Screen Neg (NEG) Urine Cocaine Screen Neg (NEG) Urine Cannabinoids Screen Neg (NEG) Urine Ethyl Alcohol Neg (NEG) O2 Saturation 99 % (92-99) Arterial Blood pH 7.30 (7.35-7.45) Arterial Blood pH (Temp corrected) 7.27 Arterial Blood pCO2 at Patient Temp 39 mmHg (35-46) Arterial Blood pCO2 (Temp correct) 43 mmHg Arterial Blood pO2 at Patient Temp 228 mmHg (75-108) Arterial Blood pO2 (Temp corrected) 240 mmHg Arterial Blood HCO3 19 mmol/L (21-28) Arterial Blood Base Excess -7 mmol/L (-3-3) FiO2 100% ac 20 500 5 SARS-CoV-2 Antigen (Rapid) Negative (NEGATIVE) Test 02/01/22 21:05 02/02/22 05:20 02/02/22 08:00 Lactic Acid Level 2.1 mmol/L (0.4-2.0) White Blood Count 19.3 x10^3/uL (4.0-11.0) Red Blood Count 4.58 x10^6/uL (3.50-5.40) Hemoglobin 13.3 g/dL (12.0-15.5) Hematocrit 40.9 % (36.0-47.0) Mean Corpuscular Volume 89 fL (79-100) Mean Corpuscular Hemoglobin 29 pg (25-35) Mean Corpuscular Hemoglobin Concent 33 g/dL (31-37) Red Cell Distribution Width 14.7 % (11.5-14.5) Platelet Count 263 x10^3/uL (140-400) Neutrophils (%) (Auto) 87 % (31-73) Lymphocytes (%) (Auto) 6 % (24-48) Monocytes (%) (Auto) 7 % (0-9) Eosinophils (%) (Auto) 0 % (0-3) Basophils (%) (Auto) 0 % (0-3) Neutrophils # (Auto) 16.8 x10^3/uL (1.8-7.7) Lymphocytes # (Auto) 1.2 x10^3/uL (1.0-4.8) Monocytes # (Auto) 1.3 x10^3/uL (0.0-1.1) Eosinophils # (Auto) 0.0 x10^3/uL (0.0-0.7) Basophils # (Auto) 0.0 x10^3/uL (0.0-0.2) Sodium Level 142 mmol/L (136-145) Potassium Level 2.9 mmol/L (3.5-5.1) Chloride Level 105 mmol/L (98-107) Carbon Dioxide Level 24 mmol/L (21-32) Anion Gap 13 (6-14) Blood Urea Nitrogen 16 mg/dL (7-20) Creatinine 1.6 mg/dL (0.6-1.0) Estimated GFR (Cockcroft-Gault) 33.5 BUN/Creatinine Ratio 10 (6-20) Glucose Level 108 mg/dL (70-99) Calcium Level 8.2 mg/dL (8.5-10.1) Total Bilirubin 1.1 mg/dL (0.2-1.0) Aspartate Amino Transf (AST/SGOT) 239 U/L (15-37) Alanine Aminotransferase (ALT/SGPT) 112 U/L (14-59) Alkaline Phosphatase 78 U/L (46-116) Troponin I High Sensitivity 766 ng/L (4-50) Total Protein 6.9 g/dL (6.4-8.2) Albumin 3.1 g/dL (3.4-5.0) Albumin/Globulin Ratio 0.8 (1.0-1.7) Salicylates Level 0.2 mg/dL (2.8-20.0) Salicylate Last Dose Date 02/01/22 Salicylate Last Dose Time 1600 O2 Saturation 98 % (92-99) Arterial Blood pH 7.48 (7.35-7.45) Arterial Blood pCO2 at Patient Temp 31 mmHg (35-46) Arterial Blood pO2 at Patient Temp 120 mmHg (75-108) Arterial Blood HCO3 23 mmol/L (21-28) Arterial Blood Base Excess 0 mmol/L (-3-3) FiO2 50 Laboratory Tests Test 02/01/22 16:20 02/01/22 16:31 02/01/22 16:45 02/01/22 19:12 White Blood Count 22.5 x10^3/uL (4.0-11.0) Red Blood Count 4.41 x10^6/uL (3.50-5.40) Hemoglobin 13.1 g/dL (12.0-15.5) Hematocrit 40.8 % (36.0-47.0) Mean Corpuscular Volume 92 fL (79-100) Mean Corpuscular Hemoglobin 30 pg (25-35) Mean Corpuscular Hemoglobin Concent 32 g/dL (31-37) Red Cell Distribution Width 14.5 % (11.5-14.5) Platelet Count 315 x10^3/uL (140-400) Neutrophils (%) (Auto) 78 % (31-73) Lymphocytes (%) (Auto) 15 % (24-48) Monocytes (%) (Auto) 7 % (0-9) Eosinophils (%) (Auto) 0 % (0-3) Basophils (%) (Auto) 0 % (0-3) Neutrophils # (Auto) 17.5 x10^3/uL (1.8-7.7) Lymphocytes # (Auto) 3.4 x10^3/uL (1.0-4.8) Monocytes # (Auto) 1.5 x10^3/uL (0.0-1.1) Eosinophils # (Auto) 0.0 x10^3/uL (0.0-0.7) Basophils # (Auto) 0.1 x10^3/uL (0.0-0.2) Segmented Neutrophils % 62 % (35-66) Band Neutrophils % 19 % (0-9) Lymphocytes % 12 % (24-48) Monocytes % 6 % (0-10) Metamyelocytes % 1 % (0-0) Platelet Estimate Adequate (ADEQUATE) Prothrombin Time 14.9 SEC (11.7-14.0) Prothromb Time International Ratio 1.2 (0.8-1.1) Sodium Level 140 mmol/L (136-145) Potassium Level 3.6 mmol/L (3.5-5.1) Chloride Level 101 mmol/L (98-107) Carbon Dioxide Level 23 mmol/L (21-32) Anion Gap 16 (6-14) Blood Urea Nitrogen 10 mg/dL (7-20) Creatinine 1.4 mg/dL (0.6-1.0) Estimated GFR (Cockcroft-Gault) 39.0 BUN/Creatinine Ratio 7 (6-20) Glucose Level 222 mg/dL (70-99) Lactic Acid Level 9.0 mmol/L (0.4-2.0) Calcium Level 8.0 mg/dL (8.5-10.1) Phosphorus Level 4.0 mg/dL (2.6-4.7) Magnesium Level 1.7 mg/dL (1.8-2.4) Total Bilirubin 0.6 mg/dL (0.2-1.0) Aspartate Amino Transf (AST/SGOT) 115 U/L (15-37) Alanine Aminotransferase (ALT/SGPT) 93 U/L (14-59) Alkaline Phosphatase 91 U/L (46-116) Troponin I High Sensitivity 44 ng/L (4-50) UK-Cwk-Y-Type Natriuretic Peptide 2321 pg/mL (0-124) Total Protein 6.9 g/dL (6.4-8.2) Albumin 3.1 g/dL (3.4-5.0) Albumin/Globulin Ratio 0.8 (1.0-1.7) Ethyl Alcohol Level < 10 mg/dL (0-10) Urine Collection Type U cath Urine Color Yellow Urine Clarity Clear Urine pH 5.5 (<5.0-8.0) Urine Specific [place] 1.020 (1.000-1.030) Urine Protein Negative mg/dL (NEG-TRACE) Urine Glucose (UA) Negative mg/dL (NEG) Urine Ketones (Stick) Negative mg/dL (NEG) Urine Blood Large (NEG) Urine Nitrite Negative (NEG) Urine Bilirubin Negative (NEG) Urine Urobilinogen Dipstick 0.2 mg/dL (0.2 mg/dL) Urine Leukocyte Esterase Negative (NEG) Urine RBC >40 /HPF (0-2) Urine WBC 5-10 /HPF (0-4) Urine Squamous Epithelial Cells Mod /LPF Urine Bacteria 0 /HPF (0-FEW) Urine Mucus Marked /LPF Urine Opiates Screen Neg (NEG) Urine Methadone Screen Neg (NEG) Urine Barbiturates Neg (NEG) Urine Phencyclidine Screen Neg (NEG) Urine Amphetamine/Methamphetamine Neg (NEG) Urine Benzodiazepines Screen Neg (NEG) Urine Cocaine Screen Neg (NEG) Urine Cannabinoids Screen Neg (NEG) Urine Ethyl Alcohol Neg (NEG) O2 Saturation 99 % (92-99) Arterial Blood pH 7.30 (7.35-7.45) Arterial Blood pH (Temp corrected) 7.27 Arterial Blood pCO2 at Patient Temp 39 mmHg (35-46) Arterial Blood pCO2 (Temp correct) 43 mmHg Arterial Blood pO2 at Patient Temp 228 mmHg (75-108) Arterial Blood pO2 (Temp corrected) 240 mmHg Arterial Blood HCO3 19 mmol/L (21-28) Arterial Blood Base Excess -7 mmol/L (-3-3) FiO2 100% ac 20 500 5 SARS-CoV-2 Antigen (Rapid) Negative (NEGATIVE) Test 02/01/22 21:05 02/02/22 05:20 02/02/22 08:00 Lactic Acid Level 2.1 mmol/L (0.4-2.0) White Blood Count 19.3 x10^3/uL (4.0-11.0) Red Blood Count 4.58 x10^6/uL (3.50-5.40) Hemoglobin 13.3 g/dL (12.0-15.5) Hematocrit 40.9 % (36.0-47.0) Mean Corpuscular Volume 89 fL (79-100) Mean Corpuscular Hemoglobin 29 pg (25-35) Mean Corpuscular Hemoglobin Concent 33 g/dL (31-37) Red Cell Distribution Width 14.7 % (11.5-14.5) Platelet Count 263 x10^3/uL (140-400) Neutrophils (%) (Auto) 87 % (31-73) Lymphocytes (%) (Auto) 6 % (24-48) Monocytes (%) (Auto) 7 % (0-9) Eosinophils (%) (Auto) 0 % (0-3) Basophils (%) (Auto) 0 % (0-3) Neutrophils # (Auto) 16.8 x10^3/uL (1.8-7.7) Lymphocytes # (Auto) 1.2 x10^3/uL (1.0-4.8) Monocytes # (Auto) 1.3 x10^3/uL (0.0-1.1) Eosinophils # (Auto) 0.0 x10^3/uL (0.0-0.7) Basophils # (Auto) 0.0 x10^3/uL (0.0-0.2) Sodium Level 142 mmol/L (136-145) Potassium Level 2.9 mmol/L (3.5-5.1) Chloride Level 105 mmol/L (98-107) Carbon Dioxide Level 24 mmol/L (21-32) Anion Gap 13 (6-14) Blood Urea Nitrogen 16 mg/dL (7-20) Creatinine 1.6 mg/dL (0.6-1.0) Estimated GFR (Cockcroft-Gault) 33.5 BUN/Creatinine Ratio 10 (6-20) Glucose Level 108 mg/dL (70-99) Calcium Level 8.2 mg/dL (8.5-10.1) Total Bilirubin 1.1 mg/dL (0.2-1.0) Aspartate Amino Transf (AST/SGOT) 239 U/L (15-37) Alanine Aminotransferase (ALT/SGPT) 112 U/L (14-59) Alkaline Phosphatase 78 U/L (46-116) Troponin I High Sensitivity 766 ng/L (4-50) Total Protein 6.9 g/dL (6.4-8.2) Albumin 3.1 g/dL (3.4-5.0) Albumin/Globulin Ratio 0.8 (1.0-1.7) Salicylates Level 0.2 mg/dL (2.8-20.0) Salicylate Last Dose Date 02/01/22 Salicylate Last Dose Time 1600 O2 Saturation 98 % (92-99) Arterial Blood pH 7.48 (7.35-7.45) Arterial Blood pCO2 at Patient Temp 31 mmHg (35-46) Arterial Blood pO2 at Patient Temp 120 mmHg (75-108) Arterial Blood HCO3 23 mmol/L (21-28) Arterial Blood Base Excess 0 mmol/L (-3-3) FiO2 50 Assessment/Plan --Kidney stone Patient is in critical condition. CT imaging did reveal a left distal 7 mm ureteral obstructing stone. Her UA was not concerning for any infection, although this does not rule out infection. She does have a leukocytosis as well as lactic acidosis of 9.0. She is receiving IV antibiotics. Again, she is very ill-appearing on a ventilator. Cardiology is on board and possibly going to do heart catheterization per the nursing staff. It is possible that the patient is in septic shock although the source is less likely to be from her urine as UA is reassuring. Would avoid any cystoscopy and stent placement in the operating room at this time. Should patient need intervention, possibly to do bedside stent placement or have interventional radiology place left-sided nephrostomy tube for urinary diversion. We will avoid any interventions at this time as patient having cardiac complications. Urology will continue to follow. If she does become septic and source is unclear, we can proceed with one of the above interventions Once health has stabilized, will plan for stone management on outpatient basis with ureteroscopy versus ESWL. Urology will follow peripherally. Please call with other concerns. Discussed with POLO Burton MD 02/02/22 1718: UROLOGY CONSULT Assessment/Plan Agree with assessment and plan. Patient is in critical condition following cardiac arrest. She has a ureteral stone without evidence of urinary infection. Continue ICU resuscitation. Consider nephrostomy tube placement if sepsis is not improving. She is too ill for urologic surgery at this time. Consider ureteroscopy for stone treatment when no longer in critical condition and cleared by cardiology. CYNTHIA PEDRAZA Feb 02, 2022 10:56 POLO TOLLIVER MD Feb 02, 2022 17:18
[2022-02-02] MEDS ORDERED: ASPIRIN CHEWABLE 81 MG TABLET. PO ONE (11:30)
--- NOTE | 2022-02-02 11:31 | PDOC2 ---
BELEM MUNIZ [employer] 02/02/22 1131: CARDIAC CONSULT DATE OF CONSULT Date of Consult DATE: 02/02/22 TIME: 10:52 REASON FOR CONSULT Reason for Consult: S/P cardiac arrest REFERRING PHYSICIAN Referring Physician: Damir SOURCE Source: Chart review HISTORY OF PRESENT ILLNESS HISTORY OF PRESENT ILLNESS This is a 57 yo female admitted for cardiac arrest. She went to bed yesterday morning and unclear how long she was in bed prior to her daughter discovering unresponsive with sonorous breathing as described. EMS arrived and noted her to be in Vfib and received ACLS therapy including x3 defibrilllation, lidocaine, and 3 rounds of epinephrine which she then converted to VT then SR. No known hx of CAD or arrhythmias. No known hx of sleep apnea. She is visiting her daughter from [place] to help with her child . Presently she is sedated, maintaining SR with PVCs. PAST MEDICAL HISTORY Psych: Other (ADHD? on aderrall) PAST SURGICAL HISTORY Past Surgical History unknown FAMILY HISTORY Family History: Family History Unknown SOCIAL HISTORY Lives: with Family CURRENT MEDICATIONS CURRENT MEDICATIONS Current Medications Medications (Trade) Dose Ordered Sig/Katia Route PRN Reason Start Time Stop Time Status Last Admin Dose Admin Acetaminophen (Tylenol Supp) 650 mg 1X ONCE DE 02/01/22 16:45 02/01/22 16:46 DC 02/01/22 17:08 Amiodarone HCl 150 mg/Dextrose 103 ml @ 618 mls/hr 1X ONCE IV 02/01/22 16:45 02/01/22 16:54 DC 02/01/22 16:55 Amiodarone HCl 450 mg/Dextrose 259 ml @ 34.533 mls/ hr CONT PRN IV SEE I/O RECORD 02/01/22 16:45 02/02/22 16:35 02/02/22 00:46 Fentanyl Citrate (Fentanyl 2ml Vial) 100 mcg 1X ONCE IVP 02/01/22 16:45 02/01/22 16:49 DC 02/01/22 16:52 Midazolam HCl (Versed) 5 mg 1X ONCE NS 02/01/22 16:45 02/01/22 16:49 DC 02/01/22 16:51 Midazolam HCl 100 ml @ 1 mls/hr 1X ONCE IV 02/01/22 17:00 02/02/22 08:31 DC 02/01/22 17:29 Acetaminophen (Tylenol) 650 mg PRN Q6HRS PRN PO Headaches, Temp > 101.5F 02/01/22 17:30 02/02/22 05:23 Heparin Sodium (Porcine) (Heparin Sodium) 5,000 unit Q8HRS SQ 02/01/22 22:00 02/02/22 06:23 Sodium Chloride 1,000 ml @ 100 mls/hr Q10H IV 02/01/22 17:30 02/02/22 17:29 02/02/22 03:30 Cefepime HCl (Maxipime) 1 gm 1X ONCE IVP 02/01/22 18:30 02/01/22 18:31 DC 02/01/22 21:27 Vancomycin HCl 2 gm/Sodium Chloride 500 ml @ 250 mls/hr 1X ONCE IV 02/01/22 18:30 02/01/22 20:29 DC 02/01/22 21:27 Fentanyl Citrate 30 ml @ 2.5 mls/hr CONT PRN IV SEE PROTOCOL 02/01/22 19:15 02/02/22 03:17 Midazolam HCl 100 ml @ 1 mls/hr CONT PRN IV SEE PROTOCOL 02/01/22 19:15 02/02/22 00:48 Chlorhexidine Gluconate (Peridex) 15 ml BID MM 02/01/22 21:00 02/01/22 21:00 Sodium Chloride 500 ml @ 500 mls/hr 1X PRN PRN IV SEE COMMENTS 02/01/22 19:15 02/01/22 19:00 Famotidine (Pepcid Vial) 20 mg BID IVP 02/01/22 21:00 02/01/22 21:36 Magnesium Sulfate 50 ml @ 25 mls/hr 1X ONCE IV 02/02/22 04:45 02/02/22 06:44 DC 02/02/22 05:21 Potassium Chloride/Water 100 ml @ 100 mls/hr Q1H IV 02/02/22 05:00 02/02/22 09:03 DC 02/02/22 08:09 ALLERGIES ALLERGIES: Coded Allergies: No Known Drug Allergies (Unverified , 02/02/22) ROS Review of System unreliable, intubated with MV PHYSICAL EXAM General: Other (sedated) HEENT: Atraumatic, Mucous membr. moist/pink Lungs: Other (diminished, intubated with MV) Heart: Regular rate (SR with PVCs), Other (distant heart sounds) Abdomen: Soft, Other (obese) Extremities: No cyanosis, Other (trace LE ) Skin: No breakdown Psych/Mental Status: Other (sedated) MUSCULOSKELETAL: Osteoarthritic changes both hands VITALS/I&O VITALS/I&O: Vital Signs Date Time Temp Pulse Resp B/P (MAP) Pulse Ox O2 Delivery O2 Flow Rate FiO2 02/02/22 09:27 99 Ventilator 02/02/22 06:00 98 22 90/56 02/02/22 04:00 99.0 99.0 I & O 02/01/22 02/01/22 02/02/22 15:00 23:00 07:00 Intake Total 779 ml Output Total 200 ml 360 ml Balance -200 ml 419 ml LABS Lab: Laboratory Tests Test 02/01/22 16:20 02/01/22 16:31 02/01/22 16:45 02/01/22 19:12 White Blood Count 22.5 x10^3/uL (4.0-11.0) H Red Blood Count 4.41 x10^6/uL (3.50-5.40) Hemoglobin 13.1 g/dL (12.0-15.5) Hematocrit 40.8 % (36.0-47.0) Mean Corpuscular Volume 92 fL (79-100) Mean Corpuscular Hemoglobin 30 pg (25-35) Mean Corpuscular Hemoglobin Concent 32 g/dL (31-37) Red Cell Distribution Width 14.5 % (11.5-14.5) Platelet Count 315 x10^3/uL (140-400) Neutrophils (%) (Auto) 78 % (31-73) H Lymphocytes (%) (Auto) 15 % (24-48) L Monocytes (%) (Auto) 7 % (0-9) Eosinophils (%) (Auto) 0 % (0-3) Basophils (%) (Auto) 0 % (0-3) Neutrophils # (Auto) 17.5 x10^3/uL (1.8-7.7) H Lymphocytes # (Auto) 3.4 x10^3/uL (1.0-4.8) Monocytes # (Auto) 1.5 x10^3/uL (0.0-1.1) H Eosinophils # (Auto) 0.0 x10^3/uL (0.0-0.7) Basophils # (Auto) 0.1 x10^3/uL (0.0-0.2) Segmented Neutrophils % 62 % (35-66) Band Neutrophils % 19 % (0-9) H Lymphocytes % 12 % (24-48) L Monocytes % 6 % (0-10) Metamyelocytes % 1 % (0-0) H Platelet Estimate Adequate (ADEQUATE) Prothrombin Time 14.9 SEC (11.7-14.0) H Prothrombin Time INR 1.2 (0.8-1.1) H Sodium Level 140 mmol/L (136-145) Potassium Level 3.6 mmol/L (3.5-5.1) Chloride Level 101 mmol/L (98-107) Carbon Dioxide Level 23 mmol/L (21-32) Anion Gap 16 (6-14) H Blood Urea Nitrogen 10 mg/dL (7-20) Creatinine 1.4 mg/dL (0.6-1.0) H Estimated GFR (Cockcroft-Gault) 39.0 BUN/Creatinine Ratio 7 (6-20) Glucose Level 222 mg/dL (70-99) H Lactic Acid Level 9.0 mmol/L (0.4-2.0) *H Calcium Level 8.0 mg/dL (8.5-10.1) L Phosphorus Level 4.0 mg/dL (2.6-4.7) Magnesium Level 1.7 mg/dL (1.8-2.4) L Total Bilirubin 0.6 mg/dL (0.2-1.0) Aspartate Amino Transferase (AST) 115 U/L (15-37) H Alanine Aminotransferase (ALT) 93 U/L (14-59) H Alkaline Phosphatase 91 U/L (46-116) Troponin I High Sensitivity 44 ng/L (4-50) XN-Zud-C-Type Natriuretic Peptide 2321 pg/mL (0-124) H Total Protein 6.9 g/dL (6.4-8.2) Albumin 3.1 g/dL (3.4-5.0) L Albumin/Globulin Ratio 0.8 (1.0-1.7) L Ethyl Alcohol Level < 10 mg/dL (0-10) Urine Collection Type U cath Urine Color Yellow Urine Clarity Clear Urine pH 5.5 (<5.0-8.0) Urine Specific [place] 1.020 (1.000-1.030) Urine Protein Negative mg/dL (NEG-TRACE) Urine Glucose (UA) Negative mg/dL (NEG) Urine Ketones (Stick) Negative mg/dL (NEG) Urine Blood Large (NEG) Urine Nitrite Negative (NEG) Urine Bilirubin Negative (NEG) Urine Urobilinogen Dipstick 0.2 mg/dL (0.2 mg/dL) Urine Leukocyte Esterase Negative (NEG) Urine RBC >40 /HPF (0-2) Urine WBC 5-10 /HPF (0-4) Urine Squamous Epithelial Cells Mod /LPF Urine Bacteria 0 /HPF (0-FEW) Urine Mucus Marked /LPF Urine Opiates Screen Neg (NEG) Urine Methadone Screen Neg (NEG) Urine Barbiturates Neg (NEG) Urine Phencyclidine Screen Neg (NEG) Urine Amphetamine/Methamphetamine Neg (NEG) Urine Benzodiazepines Screen Neg (NEG) Urine Cocaine Screen Neg (NEG) Urine Cannabinoids Screen Neg (NEG) Urine Ethyl Alcohol Neg (NEG) O2 Saturation 99 % (92-99) Arterial Blood pH 7.30 (7.35-7.45) L Arterial Blood pH (Temp corrected) 7.27 Arterial Blood pCO2 at Patient Temp 39 mmHg (35-46) Arterial Blood pCO2 (Temp correct) 43 mmHg Arterial Blood pO2 at Patient Temp 228 mmHg (75-108) H Arterial Blood pO2 (Temp corrected) 240 mmHg Arterial Blood HCO3 19 mmol/L (21-28) L Arterial Blood Base Excess -7 mmol/L (-3-3) L FiO2 100% ac 20 500 5 SARS-CoV-2 Antigen (Rapid) Negative (NEGATIVE) Test 02/01/22 21:05 02/02/22 05:20 02/02/22 08:00 Lactic Acid Level 2.1 mmol/L (0.4-2.0) H White Blood Count 19.3 x10^3/uL (4.0-11.0) H Red Blood Count 4.58 x10^6/uL (3.50-5.40) Hemoglobin 13.3 g/dL (12.0-15.5) Hematocrit 40.9 % (36.0-47.0) Mean Corpuscular Volume 89 fL (79-100) Mean Corpuscular Hemoglobin 29 pg (25-35) Mean Corpuscular Hemoglobin Concent 33 g/dL (31-37) Red Cell Distribution Width 14.7 % (11.5-14.5) H Platelet Count 263 x10^3/uL (140-400) Neutrophils (%) (Auto) 87 % (31-73) H Lymphocytes (%) (Auto) 6 % (24-48) L Monocytes (%) (Auto) 7 % (0-9) Eosinophils (%) (Auto) 0 % (0-3) Basophils (%) (Auto) 0 % (0-3) Neutrophils # (Auto) 16.8 x10^3/uL (1.8-7.7) H Lymphocytes # (Auto) 1.2 x10^3/uL (1.0-4.8) Monocytes # (Auto) 1.3 x10^3/uL (0.0-1.1) H Eosinophils # (Auto) 0.0 x10^3/uL (0.0-0.7) Basophils # (Auto) 0.0 x10^3/uL (0.0-0.2) Sodium Level 142 mmol/L (136-145) Potassium Level 2.9 mmol/L (3.5-5.1) *L Chloride Level 105 mmol/L (98-107) Carbon Dioxide Level 24 mmol/L (21-32) Anion Gap 13 (6-14) Blood Urea Nitrogen 16 mg/dL (7-20) Creatinine 1.6 mg/dL (0.6-1.0) H Estimated GFR (Cockcroft-Gault) 33.5 BUN/Creatinine Ratio 10 (6-20) Glucose Level 108 mg/dL (70-99) H Calcium Level 8.2 mg/dL (8.5-10.1) L Total Bilirubin 1.1 mg/dL (0.2-1.0) H Aspartate Amino Transferase (AST) 239 U/L (15-37) H Alanine Aminotransferase (ALT) 112 U/L (14-59) H Alkaline Phosphatase 78 U/L (46-116) Troponin I High Sensitivity 766 ng/L (4-50) H Total Protein 6.9 g/dL (6.4-8.2) Albumin 3.1 g/dL (3.4-5.0) L Albumin/Globulin Ratio 0.8 (1.0-1.7) L Salicylates Level 0.2 mg/dL (2.8-20.0) L Salicylate Last Dose Date 02/01/22 Salicylate Last Dose Time 1600 O2 Saturation 98 % (92-99) Arterial Blood pH 7.48 (7.35-7.45) H Arterial Blood pCO2 at Patient Temp 31 mmHg (35-46) L Arterial Blood pO2 at Patient Temp 120 mmHg (75-108) H Arterial Blood HCO3 23 mmol/L (21-28) Arterial Blood Base Excess 0 mmol/L (-3-3) FiO2 50 Laboratory Tests 02/01/22 16:20 02/02/22 05:20 Laboratory Tests 02/01/22 16:20 02/02/22 05:20 ASSESSMENT/PLAN ASSESSMENT/PLAN 1. Vfib/VT cardiac arrest: unclear downtime prior to resuscitation. Received 3 defibrillation, lidocaine and 3 round of epinephrine. No known cardiac history 2. Hypokalemia/hypomagnesemia 3. Mild tranasminitis 4. DOMINIC 5. Encephalopathy 6. Acute respiratory failure r/t cardiac arrest and possible aspiration: intubated with MV 7. Possible sleep apnea 8. Morbid obesity 9. On Adderall therapy Recommendations 1. ASA. Start on heparin drip 2. Continue amiodarone drip. Replace K and Mg per trend 3. No pressors currently. Will hold off BB for now with BP borderline low. 4. Continue pulmonary optimization 5. TTE, FLP, TSH 6. Ischemic workup if there is meaningful neurological recovery. CARON ANDREA MD 02/03/22 0756: CARDIAC CONSULT ASSESSMENT/PLAN ASSESSMENT/PLAN Late entry for 02/02/2022 Patient seen and examined. Agree with above nurse practitioner note. Plan for cardiac catheterization likely after evaluation of neurologic recovery. BELEM MUNIZ APRN Feb 02, 2022 11:31 CARON ANDREA MD Feb 03, 2022 07:56
[2022-02-02 11:32] LABS: CHOLESTEROL/HDL RATIO 1.6
[2022-02-02 11:39] LABS: MAGNESIUM 2.2 mg/dL (1.8-2.4); POTASSIUM 3.3 mmol/L (3.5-5.1)
[2022-02-02] MEDS ORDERED: AMPICILLIN/SULBACTAM 3 GM in IV NORMAL SALINE 100ML 100 ML IV SCH (12:00)
[2022-02-02] MEDS: CHLORHEXIDINE 0.12% 15 ML MOUTHWASH. MM SCH ×2 (14:48→21:00)
[2022-02-02] MEDS: FAMOTIDINE 20 MG/2 ML VIAL IVP SCH ×2 (14:49→22:16)
--- NOTE | 2022-02-02 15:54 | NUR ---
Allergies and reactions nkda INR 1.2 BUN 16 Cr 1.6 Platelets 263 Blood culture done n blood culture results Order Verified y Consent signed y Previous PICC placement n Past Medical/Surgical history and current diagnosis reviewed y Patient Medical /Surgical History Related to PICC line placement Problems breathing lying flat Special considerations for PICC line placement None PICC placement indication Caustic medication class drug usage, retirement antibiotic usage, Multiple/ Frequent blood draws, Poor peripheral intravenous access Melissa Doll RN PICC Nurse Addendum: 02/02/22 at 1611 by MELISSA DOLL RN Amended: Links added.
--- NOTE | 2022-02-02 16:06 | NUR ---
SS following for discharge planning. SS reviewed pt chart and discussed with pt RN. Pt is from home and is currently on the vent at 50%. COVID19 negative. Positive sepsis. Urology, Cardiology, and Pulmonology consulted. Pt on IV Ampicillin and IV fluids. Heparin drip. Pt on low dose Fentanyl and Versed. Not responsive at this time. SS will continue to follow for discharge planning.
--- NOTE | 2022-02-02 16:07 | NUR ---
Procedure: Following complete explanation of the PICC procedure including the indications, risks, and potential complications, informed consent was obtained. The possibility for infection was discussed along with signs, symptoms, and prevention. All the questions were answered.y Written and verbal patient education was provided. y Hand hygiene performed. y Standardized central line checklist was utilized.y The patient was placed in the supine position, the arm was prepped with chlorhexidine and patient draped with maximum sterile barrier. 3.5 mL 1% lidocaine was infiltrated into the skin to provide local anesthesia. A thorough assessment of right upper extremity completed. Using real-time ultrasound guidance and standardized micro puncture set, the cephalic vein was punctured and a peel away sheath was placed using the modified Seldinger technique. unable to advance wire past the shoulder area even with multiple repositioning. tried accessing the basilic vein with no success. Complications:none Addendum: 02/02/22 at 1611 by FILI TSAI RN Amended: Links added.
[2022-02-02] MEDS ORDERED: IV NORMAL SALINE 1000ML BAG 1,000 ML IV ONE ×2 (16:30→20:00)
--- NOTE | 2022-02-02 16:53 | PDOC ---
[employer] PROGRESS NOTE Date of Service DOS: DATE: 02/02/22 TIME: 16:50 Chief Complaint Chief Complaint Acute hypoxic respiratory failure , possible aspiration Vfib/VTach cardiac arrest Hypokalemia/hypomagnesemia acute renal failure concern for brain injury with arrest, Morbid obesity, BMI 46 History of Present Illness History of Present Illness cont care in ICU, on vent Pulmonary, CV following e-lyte management, ICU protocol ordered lighten sedation as able, poor reflexes currently cont the antibiotics CV consuted started on heparin drip amiodarone drip. ICU care 2 visits 33 min Vitals/I&O Vitals/I&O: Vital Signs Date Time Temp Pulse Resp B/P (MAP) Pulse Ox O2 Delivery O2 Flow Rate FiO2 02/02/22 15:35 100 Ventilator 02/02/22 06:00 98 22 90/56 02/02/22 04:00 99.0 99.0 I & O 02/01/22 02/01/22 02/02/22 15:00 23:00 07:00 Intake Total 779 ml Output Total 200 ml 400 ml Balance -200 ml 379 ml Physical Exam General: Other (sedated) Heart: Regular rate (SR with PVCs), Other (distant heart sounds) Lungs: Other (vent soudds, clear, ) Abdomen: Soft, Other (obese) Extremities: No cyanosis, Other (trace LE ) Skin: No breakdown Labs Labs: Laboratory Tests Test 02/01/22 19:12 02/01/22 21:05 02/02/22 05:20 02/02/22 08:00 Coronavirus (COVID-19)(PCR) Not detected (NOT DETECTD) SARS-CoV-2 Antigen (Rapid) Negative (NEGATIVE) Lactic Acid Level 2.1 mmol/L (0.4-2.0) White Blood Count 19.3 x10^3/uL (4.0-11.0) Red Blood Count 4.58 x10^6/uL (3.50-5.40) Hemoglobin 13.3 g/dL (12.0-15.5) Hematocrit 40.9 % (36.0-47.0) Mean Corpuscular Volume 89 fL (79-100) Mean Corpuscular Hemoglobin 29 pg (25-35) Mean Corpuscular Hemoglobin Concent 33 g/dL (31-37) Red Cell Distribution Width 14.7 % (11.5-14.5) Platelet Count 263 x10^3/uL (140-400) Neutrophils (%) (Auto) 87 % (31-73) Lymphocytes (%) (Auto) 6 % (24-48) Monocytes (%) (Auto) 7 % (0-9) Eosinophils (%) (Auto) 0 % (0-3) Basophils (%) (Auto) 0 % (0-3) Neutrophils # (Auto) 16.8 x10^3/uL (1.8-7.7) Lymphocytes # (Auto) 1.2 x10^3/uL (1.0-4.8) Monocytes # (Auto) 1.3 x10^3/uL (0.0-1.1) Eosinophils # (Auto) 0.0 x10^3/uL (0.0-0.7) Basophils # (Auto) 0.0 x10^3/uL (0.0-0.2) Sodium Level 142 mmol/L (136-145) Potassium Level 2.9 mmol/L (3.5-5.1) Chloride Level 105 mmol/L (98-107) Carbon Dioxide Level 24 mmol/L (21-32) Anion Gap 13 (6-14) Blood Urea Nitrogen 16 mg/dL (7-20) Creatinine 1.6 mg/dL (0.6-1.0) Estimated GFR (Cockcroft-Gault) 33.5 BUN/Creatinine Ratio 10 (6-20) Glucose Level 108 mg/dL (70-99) Calcium Level 8.2 mg/dL (8.5-10.1) Total Bilirubin 1.1 mg/dL (0.2-1.0) Aspartate Amino Transf (AST/SGOT) 239 U/L (15-37) Alanine Aminotransferase (ALT/SGPT) 112 U/L (14-59) Alkaline Phosphatase 78 U/L (46-116) Troponin I High Sensitivity 766 ng/L (4-50) Total Protein 6.9 g/dL (6.4-8.2) Albumin 3.1 g/dL (3.4-5.0) Albumin/Globulin Ratio 0.8 (1.0-1.7) Triglycerides Level 81 mg/dL (0-150) Cholesterol Level 122 mg/dL (0-200) LDL Cholesterol, Calculated 30 mg/dL (0-100) VLDL Cholesterol, Calculated 16 mg/dL (0-40) Non-HDL Cholesterol Calculated 46 mg/dL (0-129) HDL Cholesterol 76 mg/dL (40-60) Cholesterol/HDL Ratio 1.6 Thyroid Stimulating Hormone (TSH) 0.852 uIU/mL (0.358-3.74) Salicylates Level 0.2 mg/dL (2.8-20.0) Salicylate Last Dose Date 02/01/22 Salicylate Last Dose Time 1600 O2 Saturation 98 % (92-99) Arterial Blood pH 7.48 (7.35-7.45) Arterial Blood pCO2 at Patient Temp 31 mmHg (35-46) Arterial Blood pO2 at Patient Temp 120 mmHg (75-108) Arterial Blood HCO3 23 mmol/L (21-28) Arterial Blood Base Excess 0 mmol/L (-3-3) FiO2 50 Test 02/02/22 11:00 02/02/22 12:21 02/02/22 12:25 Potassium Level 3.3 mmol/L (3.5-5.1) Magnesium Level 2.2 mg/dL (1.8-2.4) Activated Partial Thromboplast Time 37 SEC (24-38) Glucose (Fingerstick) 106 mg/dL (70-99) Assessment and Plan Assessmemt and Plan Problems Medical Problems: (1) Fever Status: Acute Comment Review of Relevant I have reviewed the following items alf (where applicable) has been applied. Medications: Current Medications Medications (Trade) Dose Ordered Sig/Katia Route PRN Reason Start Time Stop Time Status Last Admin Dose Admin Midazolam HCl 100 ml @ 1 mls/hr 1X ONCE IV 02/01/22 17:00 02/02/22 08:31 DC 02/01/22 17:29 Acetaminophen (Tylenol) 650 mg PRN Q6HRS PRN PO Headaches, Temp > 101.5F 02/01/22 17:30 02/02/22 05:23 Heparin Sodium (Porcine) (Heparin Sodium) 5,000 unit Q8HRS SQ 02/01/22 22:00 02/02/22 11:31 DC 02/02/22 06:23 Sodium Chloride 1,000 ml @ 100 mls/hr Q10H IV 02/01/22 17:30 02/02/22 17:29 02/02/22 03:30 Cefepime HCl (Maxipime) 1 gm 1X ONCE IVP 02/01/22 18:30 02/01/22 18:31 DC 02/01/22 21:27 Vancomycin HCl 2 gm/Sodium Chloride 500 ml @ 250 mls/hr 1X ONCE IV 02/01/22 18:30 02/01/22 20:29 DC 02/01/22 21:27 Fentanyl Citrate 30 ml @ 2.5 mls/hr CONT PRN IV SEE PROTOCOL 02/01/22 19:15 02/02/22 14:53 Midazolam HCl 100 ml @ 1 mls/hr CONT PRN IV SEE PROTOCOL 02/01/22 19:15 02/02/22 14:55 Chlorhexidine Gluconate (Peridex) 15 ml BID MM 02/01/22 21:00 02/02/22 14:48 Sodium Chloride 500 ml @ 500 mls/hr 1X PRN PRN IV SEE COMMENTS 02/01/22 19:15 02/01/22 19:00 Famotidine (Pepcid Vial) 20 mg BID IVP 02/01/22 21:00 02/02/22 14:49 Magnesium Sulfate 50 ml @ 25 mls/hr 1X ONCE IV 02/02/22 04:45 02/02/22 06:44 DC 02/02/22 05:21 Potassium Chloride/Water 100 ml @ 100 mls/hr Q1H IV 02/02/22 05:00 02/02/22 09:03 DC 02/02/22 08:09 Potassium Chloride/Water 100 ml @ 100 mls/hr Q1H IV 02/02/22 09:00 02/02/22 12:59 DC 02/02/22 14:46 Ampicillin Sodium/ Sulbactam Sodium 3 gm/Sodium Chloride 100 ml @ 200 mls/hr Q6HRS IV 02/02/22 12:00 02/02/22 12:00 Aspirin (Aspirin Chewable) 81 mg 1X ONCE PO 02/02/22 11:30 02/02/22 11:32 DC 02/02/22 14:48 Justifications for Admission Other Justification SILVIANO SIMMS MD Feb 02, 2022 16:53
[2022-02-02] MEDS: AMPICILLIN/SULBACTAM 3 GM in IV DEXTROSE 5% 100ML 100 ML IV SCH (18:00)
[2022-02-02] MEDS: HEPARIN 25,000UTS/250ML PREMIX 250 ML IV PRN (20:12)
[2022-02-02] MEDS: HEPARIN for IV BOLUS 10,000 UNIT/10 ML VIAL. IV PRN (20:14)
[2022-02-03] VITALS (24 sets, daily range): BP systolic 103–138; BP diastolic 62–86
[2022-02-03] MEDS: AMPICILLIN/SULBACTAM 3 GM in IV DEXTROSE 5% 100ML 100 ML IV SCH ×4 (00:34→18:11)
[2022-02-03 03:29] LABS: BASO # 0.1 x10^3/uL (0.0-0.2); BASO % 1 % (0-3); EOS % 0 % (0-3); HEMATOCRIT 34.4 % (36.0-47.0); HEMOGLOBIN 11.2 g/dL (12.0-15.5); LYMPH # 1.5 x10^3/uL (1.0-4.8); LYMPH % 13 % (24-48); MEAN CORPUSCULAR HEMOGLOBIN 29 pg (25-35); MEAN CORPUSCULAR HGB CONC 33 g/dL (31-37); MEAN CORPUSCULAR VOLUME 90 fL (79-100); MONO # 0.6 x10^3/uL (0.0-1.1); MONO % 5 % (0-9); NEUT # 9.7 x10^3/uL (1.8-7.7); NEUT % 82 % (31-73); PLATELET COUNT 213 x10^3/uL (140-400); RED BLOOD COUNT 3.81 x10^6/uL (3.50-5.40); WHITE BLOOD COUNT 11.8 x10^3/uL (4.0-11.0)
[2022-02-03 03:41] LABS: ALBUMIN 2.3 g/dL (3.4-5.0); ALBUMIN/GLOBULIN RATIO 0.7 (1.0-1.7); CALCIUM 7.4 mg/dL (8.5-10.1); CREATININE 1.3 mg/dL (0.6-1.0); GFR 42.5; MAGNESIUM 2.1 mg/dL (1.8-2.4); POTASSIUM 3.2 mmol/L (3.5-5.1); TOTAL PROTEIN 5.8 g/dL (6.4-8.2)
[2022-02-03] MEDS: HEPARIN for IV BOLUS 10,000 UNIT/10 ML VIAL. IV PRN ×2 (04:00→14:30)
[2022-02-03] MEDS ORDERED: ELECTROLYTE (ICU) PROTOCOL. MC PRN (04:15)
[2022-02-03] MEDS ORDERED: POTASSIUM BICARB 20 MEQ EFFERVESCENT TABLET. PEG ONE ×2 (04:15→11:15)
[2022-02-03 07:58] LABS: BASE EXCESS ABG -1 mmol/L (-3-3); HCO3 ABG 22 mmol/L (21-28); PCO2 ABG 29 mmHg (35-46); PO2 ABG 162 mmHg (75-108); SAT O2 ABG 99 % (92-99)
--- NOTE | 2022-02-03 08:00 | RAD ---
XR CHEST 1V History: Reason: intubation 102 / Spl. Instructions: / History: Comparison: February 02, 2022 Findings: Stable endotracheal tube and enteric tube. Increased patchy mid and bibasilar opacities. Small left p leural effusion, unchanged. Unchanged heart size. No pneumothorax. Impression: 1. Increased patchy mid and bibasilar opacities. 2. Small left pleural effusion, unchanged. Electronically signed by: Jose De León DO (02/03/2022 7:58 AM) [id number]
[2022-02-03 08:04] LABS: FIO2 ABG 50
[2022-02-03] MEDS: CHLORHEXIDINE 0.12% 15 ML MOUTHWASH. MM SCH ×2 (08:29→20:51)
[2022-02-03] MEDS: FAMOTIDINE 20 MG/2 ML VIAL IVP SCH ×2 (08:30→20:52)
[2022-02-03] MEDS: SENNOSIDES/DOCUSATE 8.6/50MG TABLET. PO SCH ×2 (08:30→20:51)
[2022-02-03] MEDS: ASPIRIN CHEWABLE 81 MG TABLET. PO SCH (08:30)
[2022-02-03] MEDS: ANTI-COAG MONITOR BY PHARMACY. MC PRN ×2 (08:53→08:56)
--- NOTE | 2022-02-03 09:42 | RAD ---
Placement of right internal jugular triple-lumen central venous catheter Sterility: All elements of maximal sterile barrier technique including the use of a cap, mask, steril e gown, sterile gloves, large sterile sheet, appropriate hand hygiene, and 2% chlorhexidine for cutan eous antisepsis (or acceptable alternative antiseptic per current guidelines) were followed for this procedure. Consent: The procedure was explained in its entirety to the patient or the patients designated repres entative by a member of the treatment team, including a discussion of the risks, benefits and commonl y accepted alternatives to the procedure, as well as the expected consequences of no therapy whatsoev er. Discussion of the risks included, but was not limited to, those that are most frequent and thos e that are rare but possibly severe or life-threatening, as well as the possibility of unforeseen com plications. Technique and Findings: Following informed consent, the patient was prepped and draped in the usual s terile fashion. Ultrasound interrogation of the right neck revealed patency and compressibility of t he right internal jugular vein. A 21-gauge micropuncture was then used to gain access to this vein u nder ultrasound guidance. A hard copy ultrasound image was recorded. A guidewire was advanced centra lly over which, following dilatation, a triple-lumen central venous catheter was placed over the wir e. The new catheter was found to flush and aspirate normally. The catheter was secured in place. Ster ile dressings were applied. No immediate complications were identified. IMPRESSION: Placement of a right internal jugular triple-lumen central venous catheter Electronically signed by: Neto Centeno MD (02/03/2022 9:39 AM) [id number]
--- NOTE | 2022-02-03 10:08 | RAD ---
AP chest. HISTORY: Central line placement AP view was taken of the chest. There is a right jugular central line which extends to the right atri um. Endotracheal tube is at the level aortic arch without change. There is atelectasis or infiltrate in the left lung base. There is no pneumothorax. NG tube extends into the abdomen. IMPRESSION: 1. Right jugular central line extends to the right atrium. 2. No pneumothorax. 3. Little other change. Electronically signed by: Tobi Narayan MD (02/03/2022 10:06 AM) [facility]
[2022-02-03] MEDS: AMIODARONE 450 MG in IV DEXTROSE 5% 250 ML IV PRN (10:24)
[2022-02-03] MEDS: HEPARIN 25,000UTS/250ML PREMIX 250 ML IV PRN (10:50)
--- NOTE | 2022-02-03 11:05 | PDOC ---
PULMONARY PROGRESS NOTES DATE: 02/03/22 TIME: 11:02 Subjective Remains intubated and mildly sedated. Off Versed this morning but still on low- dose fentanyl. Does not follow any commands. Remains on assist control mode. Vitals Vital Signs Date Time Temp Pulse Resp B/P (MAP) Pulse Ox O2 Delivery O2 Flow Rate FiO2 02/03/22 10:00 80 20 124/81 99 Ventilator 02/03/22 08:00 98.6 98.6 Comments Remains intubated on assist control mode Lungs: Clear, Other (vent soudds, clear, ) Cardiovascular: S1, S2 Abdomen: Soft, Non-tender, Other (Obese) Extremities: Other (1+ edema) Skin: Warm Labs Laboratory Tests Test 02/01/22 16:20 02/01/22 16:31 02/01/22 16:45 02/01/22 19:12 White Blood Count 22.5 x10^3/uL (4.0-11.0) Red Blood Count 4.41 x10^6/uL (3.50-5.40) Hemoglobin 13.1 g/dL (12.0-15.5) Hematocrit 40.8 % (36.0-47.0) Mean Corpuscular Volume 92 fL (79-100) Mean Corpuscular Hemoglobin 30 pg (25-35) Mean Corpuscular Hemoglobin Concent 32 g/dL (31-37) Red Cell Distribution Width 14.5 % (11.5-14.5) Platelet Count 315 x10^3/uL (140-400) Neutrophils (%) (Auto) 78 % (31-73) Lymphocytes (%) (Auto) 15 % (24-48) Monocytes (%) (Auto) 7 % (0-9) Eosinophils (%) (Auto) 0 % (0-3) Basophils (%) (Auto) 0 % (0-3) Neutrophils # (Auto) 17.5 x10^3/uL (1.8-7.7) Lymphocytes # (Auto) 3.4 x10^3/uL (1.0-4.8) Monocytes # (Auto) 1.5 x10^3/uL (0.0-1.1) Eosinophils # (Auto) 0.0 x10^3/uL (0.0-0.7) Basophils # (Auto) 0.1 x10^3/uL (0.0-0.2) Segmented Neutrophils % 62 % (35-66) Band Neutrophils % 19 % (0-9) Lymphocytes % 12 % (24-48) Monocytes % 6 % (0-10) Metamyelocytes % 1 % (0-0) Platelet Estimate Adequate (ADEQUATE) Prothrombin Time 14.9 SEC (11.7-14.0) Prothromb Time International Ratio 1.2 (0.8-1.1) Sodium Level 140 mmol/L (136-145) Potassium Level 3.6 mmol/L (3.5-5.1) Chloride Level 101 mmol/L (98-107) Carbon Dioxide Level 23 mmol/L (21-32) Anion Gap 16 (6-14) Blood Urea Nitrogen 10 mg/dL (7-20) Creatinine 1.4 mg/dL (0.6-1.0) Estimated GFR (Cockcroft-Gault) 39.0 BUN/Creatinine Ratio 7 (6-20) Glucose Level 222 mg/dL (70-99) Lactic Acid Level 9.0 mmol/L (0.4-2.0) Calcium Level 8.0 mg/dL (8.5-10.1) Phosphorus Level 4.0 mg/dL (2.6-4.7) Magnesium Level 1.7 mg/dL (1.8-2.4) Total Bilirubin 0.6 mg/dL (0.2-1.0) Aspartate Amino Transf (AST/SGOT) 115 U/L (15-37) Alanine Aminotransferase (ALT/SGPT) 93 U/L (14-59) Alkaline Phosphatase 91 U/L (46-116) Troponin I High Sensitivity 44 ng/L (4-50) NZ-Gqg-R-Type Natriuretic Peptide 2321 pg/mL (0-124) Total Protein 6.9 g/dL (6.4-8.2) Albumin 3.1 g/dL (3.4-5.0) Albumin/Globulin Ratio 0.8 (1.0-1.7) Ethyl Alcohol Level < 10 mg/dL (0-10) Urine Collection Type U cath Urine Color Yellow Urine Clarity Clear Urine pH 5.5 (<5.0-8.0) Urine Specific [place] 1.020 (1.000-1.030) Urine Protein Negative mg/dL (NEG-TRACE) Urine Glucose (UA) Negative mg/dL (NEG) Urine Ketones (Stick) Negative mg/dL (NEG) Urine Blood Large (NEG) Urine Nitrite Negative (NEG) Urine Bilirubin Negative (NEG) Urine Urobilinogen Dipstick 0.2 mg/dL (0.2 mg/dL) Urine Leukocyte Esterase Negative (NEG) Urine RBC >40 /HPF (0-2) Urine WBC 5-10 /HPF (0-4) Urine Squamous Epithelial Cells Mod /LPF Urine Bacteria 0 /HPF (0-FEW) Urine Mucus Marked /LPF Urine Opiates Screen Neg (NEG) Urine Methadone Screen Neg (NEG) Urine Barbiturates Neg (NEG) Urine Phencyclidine Screen Neg (NEG) Urine Amphetamine/Methamphetamine Neg (NEG) Urine Benzodiazepines Screen Neg (NEG) Urine Cocaine Screen Neg (NEG) Urine Cannabinoids Screen Neg (NEG) Urine Ethyl Alcohol Neg (NEG) O2 Saturation 99 % (92-99) Arterial Blood pH 7.30 (7.35-7.45) Arterial Blood pH (Temp corrected) 7.27 Arterial Blood pCO2 at Patient Temp 39 mmHg (35-46) Arterial Blood pCO2 (Temp correct) 43 mmHg Arterial Blood pO2 at Patient Temp 228 mmHg (75-108) Arterial Blood pO2 (Temp corrected) 240 mmHg Arterial Blood HCO3 19 mmol/L (21-28) Arterial Blood Base Excess -7 mmol/L (-3-3) FiO2 100% ac 20 500 5 Coronavirus (COVID-19)(PCR) Not detected (NOT DETECTD) SARS-CoV-2 Antigen (Rapid) Negative (NEGATIVE) Test 02/01/22 21:05 02/02/22 05:20 02/02/22 08:00 02/02/22 11:00 Lactic Acid Level 2.1 mmol/L (0.4-2.0) White Blood Count 19.3 x10^3/uL (4.0-11.0) Red Blood Count 4.58 x10^6/uL (3.50-5.40) Hemoglobin 13.3 g/dL (12.0-15.5) Hematocrit 40.9 % (36.0-47.0) Mean Corpuscular Volume 89 fL (79-100) Mean Corpuscular Hemoglobin 29 pg (25-35) Mean Corpuscular Hemoglobin Concent 33 g/dL (31-37) Red Cell Distribution Width 14.7 % (11.5-14.5) Platelet Count 263 x10^3/uL (140-400) Neutrophils (%) (Auto) 87 % (31-73) Lymphocytes (%) (Auto) 6 % (24-48) Monocytes (%) (Auto) 7 % (0-9) Eosinophils (%) (Auto) 0 % (0-3) Basophils (%) (Auto) 0 % (0-3) Neutrophils # (Auto) 16.8 x10^3/uL (1.8-7.7) Lymphocytes # (Auto) 1.2 x10^3/uL (1.0-4.8) Monocytes # (Auto) 1.3 x10^3/uL (0.0-1.1) Eosinophils # (Auto) 0.0 x10^3/uL (0.0-0.7) Basophils # (Auto) 0.0 x10^3/uL (0.0-0.2) Sodium Level 142 mmol/L (136-145) Potassium Level 2.9 mmol/L (3.5-5.1) 3.3 mmol/L (3.5-5.1) Chloride Level 105 mmol/L (98-107) Carbon Dioxide Level 24 mmol/L (21-32) Anion Gap 13 (6-14) Blood Urea Nitrogen 16 mg/dL (7-20) Creatinine 1.6 mg/dL (0.6-1.0) Estimated GFR (Cockcroft-Gault) 33.5 BUN/Creatinine Ratio 10 (6-20) Glucose Level 108 mg/dL (70-99) Calcium Level 8.2 mg/dL (8.5-10.1) Total Bilirubin 1.1 mg/dL (0.2-1.0) Aspartate Amino Transf (AST/SGOT) 239 U/L (15-37) Alanine Aminotransferase (ALT/SGPT) 112 U/L (14-59) Alkaline Phosphatase 78 U/L (46-116) Troponin I High Sensitivity 766 ng/L (4-50) Total Protein 6.9 g/dL (6.4-8.2) Albumin 3.1 g/dL (3.4-5.0) Albumin/Globulin Ratio 0.8 (1.0-1.7) Triglycerides Level 81 mg/dL (0-150) Cholesterol Level 122 mg/dL (0-200) LDL Cholesterol, Calculated 30 mg/dL (0-100) VLDL Cholesterol, Calculated 16 mg/dL (0-40) Non-HDL Cholesterol Calculated 46 mg/dL (0-129) HDL Cholesterol 76 mg/dL (40-60) Cholesterol/HDL Ratio 1.6 Thyroid Stimulating Hormone (TSH) 0.852 uIU/mL (0.358-3.74) Salicylates Level 0.2 mg/dL (2.8-20.0) Salicylate Last Dose Date 02/01/22 Salicylate Last Dose Time 1600 O2 Saturation 98 % (92-99) Arterial Blood pH 7.48 (7.35-7.45) Arterial Blood pCO2 at Patient Temp 31 mmHg (35-46) Arterial Blood pO2 at Patient Temp 120 mmHg (75-108) Arterial Blood HCO3 23 mmol/L (21-28) Arterial Blood Base Excess 0 mmol/L (-3-3) FiO2 50 Magnesium Level 2.2 mg/dL (1.8-2.4) Test 02/02/22 12:21 02/02/22 12:25 02/03/22 03:20 02/03/22 07:50 Activated Partial Thromboplast Time 37 SEC (24-38) Glucose (Fingerstick) 106 mg/dL (70-99) White Blood Count 11.8 x10^3/uL (4.0-11.0) Red Blood Count 3.81 x10^6/uL (3.50-5.40) Hemoglobin 11.2 g/dL (12.0-15.5) Hematocrit 34.4 % (36.0-47.0) Mean Corpuscular Volume 90 fL (79-100) Mean Corpuscular Hemoglobin 29 pg (25-35) Mean Corpuscular Hemoglobin Concent 33 g/dL (31-37) Red Cell Distribution Width 15.0 % (11.5-14.5) Platelet Count 213 x10^3/uL (140-400) Neutrophils (%) (Auto) 82 % (31-73) Lymphocytes (%) (Auto) 13 % (24-48) Monocytes (%) (Auto) 5 % (0-9) Eosinophils (%) (Auto) 0 % (0-3) Basophils (%) (Auto) 1 % (0-3) Neutrophils # (Auto) 9.7 x10^3/uL (1.8-7.7) Lymphocytes # (Auto) 1.5 x10^3/uL (1.0-4.8) Monocytes # (Auto) 0.6 x10^3/uL (0.0-1.1) Eosinophils # (Auto) 0.0 x10^3/uL (0.0-0.7) Basophils # (Auto) 0.1 x10^3/uL (0.0-0.2) Heparin Anti-Xa Act, Unfractionated < 0.10 IU/mL (0.30-0.70) Sodium Level 140 mmol/L (136-145) Potassium Level 3.2 mmol/L (3.5-5.1) Chloride Level 107 mmol/L (98-107) Carbon Dioxide Level 24 mmol/L (21-32) Anion Gap 9 (6-14) Blood Urea Nitrogen 23 mg/dL (7-20) Creatinine 1.3 mg/dL (0.6-1.0) Estimated GFR (Cockcroft-Gault) 42.5 BUN/Creatinine Ratio 18 (6-20) Glucose Level 117 mg/dL (70-99) Calcium Level 7.4 mg/dL (8.5-10.1) Magnesium Level 2.1 mg/dL (1.8-2.4) Total Bilirubin 1.0 mg/dL (0.2-1.0) Aspartate Amino Transf (AST/SGOT) 153 U/L (15-37) Alanine Aminotransferase (ALT/SGPT) 80 U/L (14-59) Alkaline Phosphatase 84 U/L (46-116) Total Protein 5.8 g/dL (6.4-8.2) Albumin 2.3 g/dL (3.4-5.0) Albumin/Globulin Ratio 0.7 (1.0-1.7) O2 Saturation 99 % (92-99) Arterial Blood pH 7.49 (7.35-7.45) Arterial Blood pCO2 at Patient Temp 29 mmHg (35-46) Arterial Blood pO2 at Patient Temp 162 mmHg (75-108) Arterial Blood HCO3 22 mmol/L (21-28) Arterial Blood Base Excess -1 mmol/L (-3-3) FiO2 50 Laboratory Tests Test 02/02/22 12:21 02/02/22 12:25 02/03/22 03:20 02/03/22 07:50 Activated Partial Thromboplast Time 37 SEC (24-38) Glucose (Fingerstick) 106 mg/dL (70-99) White Blood Count 11.8 x10^3/uL (4.0-11.0) Red Blood Count 3.81 x10^6/uL (3.50-5.40) Hemoglobin 11.2 g/dL (12.0-15.5) Hematocrit 34.4 % (36.0-47.0) Mean Corpuscular Volume 90 fL (79-100) Mean Corpuscular Hemoglobin 29 pg (25-35) Mean Corpuscular Hemoglobin Concent 33 g/dL (31-37) Red Cell Distribution Width 15.0 % (11.5-14.5) Platelet Count 213 x10^3/uL (140-400) Neutrophils (%) (Auto) 82 % (31-73) Lymphocytes (%) (Auto) 13 % (24-48) Monocytes (%) (Auto) 5 % (0-9) Eosinophils (%) (Auto) 0 % (0-3) Basophils (%) (Auto) 1 % (0-3) Neutrophils # (Auto) 9.7 x10^3/uL (1.8-7.7) Lymphocytes # (Auto) 1.5 x10^3/uL (1.0-4.8) Monocytes # (Auto) 0.6 x10^3/uL (0.0-1.1) Eosinophils # (Auto) 0.0 x10^3/uL (0.0-0.7) Basophils # (Auto) 0.1 x10^3/uL (0.0-0.2) Heparin Anti-Xa Act, Unfractionated < 0.10 IU/mL (0.30-0.70) Sodium Level 140 mmol/L (136-145) Potassium Level 3.2 mmol/L (3.5-5.1) Chloride Level 107 mmol/L (98-107) Carbon Dioxide Level 24 mmol/L (21-32) Anion Gap 9 (6-14) Blood Urea Nitrogen 23 mg/dL (7-20) Creatinine 1.3 mg/dL (0.6-1.0) Estimated GFR (Cockcroft-Gault) 42.5 BUN/Creatinine Ratio 18 (6-20) Glucose Level 117 mg/dL (70-99) Calcium Level 7.4 mg/dL (8.5-10.1) Magnesium Level 2.1 mg/dL (1.8-2.4) Total Bilirubin 1.0 mg/dL (0.2-1.0) Aspartate Amino Transf (AST/SGOT) 153 U/L (15-37) Alanine Aminotransferase (ALT/SGPT) 80 U/L (14-59) Alkaline Phosphatase 84 U/L (46-116) Total Protein 5.8 g/dL (6.4-8.2) Albumin 2.3 g/dL (3.4-5.0) Albumin/Globulin Ratio 0.7 (1.0-1.7) O2 Saturation 99 % (92-99) Arterial Blood pH 7.49 (7.35-7.45) Arterial Blood pCO2 at Patient Temp 29 mmHg (35-46) Arterial Blood pO2 at Patient Temp 162 mmHg (75-108) Arterial Blood HCO3 22 mmol/L (21-28) Arterial Blood Base Excess -1 mmol/L (-3-3) FiO2 50 Comments Chest x-ray reviewed 02/03/2022. Mild bilateral interstitial infiltrates Impression . 1. Acute hypoxic respiratory failure secondary to cardiac arrest and suspected aspiration. 2. Status post ventricular fibrillation and ventricular tachycardia cardiac arrest, requiring multiple shocks, epinephrine with return of spontaneous circulation. The duration since she was found unresponsive was probably very long and as a result, she was not considered a candidate for hypothermia. 3. Abnormal CT chest with upper lobe infiltrates and some basal atelectasis. Suspect component of aspiration. 4. Leukocytosis. 5. Acute kidney injury. 6. Hypokalemia. May be contributing to ventricular fibrillation and ventricular tachycardia. Improved 7. Lactic acidosis secondary to shock, now resolved. 8. Abnormal liver function tests secondary to shock liver. 9. Possible urinary tract infection./She has ureteral stone. 10. Cannot exclude anoxic encephalopathy. Plan . RECOMMENDATIONS: 1. Continue present assist control mode. Follow ABGs and make necessary adjustments. Will reduce the rate today. Wean FiO2 as well. 2. Follow-up cardiology recommendation regarding need for cardiac catheterization. Currently on amiodarone. We will need to first rule out any anoxic encephalopathy before any intervention. 3. Replace electrolytes. 4. Monitor liver function test. 5. Patient is off the Versed. Discontinue fentanyl and assess for mental status. 6. Discussed with cardiology PEDIATRIC DERMATOLOGIST. 7. Continue DVT prophylaxis. 8. enteral nutrition. 9. Stress ulcer prophylaxis. 10. Replace potassium per protocol. 11. Continue Unasyn for now for possible UTI/renal stone 12. Discussed with RN and RT. Chart reviewed, imaging studies reviewed. critical care time 30 minutes MAYDA KIM MD Feb 03, 2022 11:05
--- NOTE | 2022-02-03 11:21 | PDOC ---
BELEM MUNIZ SENIOR ART DIRECTOR 02/03/22 1121: CARDIO Progress Notes Date and Time Date of Service 02/03/2022 Time of Evaluation 1100 Subjective Subjective: Other (unobtainable on MV) Vitals Vitals Vital Signs Date Time Temp Pulse Resp B/P (MAP) Pulse Ox O2 Delivery O2 Flow Rate FiO2 02/03/22 10:00 80 20 124/81 99 Ventilator 02/03/22 08:00 98.6 98.6 Weight Weight [ ] Input and Output Intake and Output Intake and Output 02/03/22 07:00 Intake Total 6942.81 ml Output Total 645 ml Balance 6297.81 ml Intake Oral 0 ml IV Total 6430.81 ml Tube Feeding 292 ml Other 220 ml Output Urine Total 645 ml Laboratory Labs Laboratory Tests Test 02/02/22 12:21 02/02/22 12:25 02/03/22 03:20 02/03/22 07:50 Activated Partial Thromboplast Time 37 SEC (24-38) Glucose (Fingerstick) 106 mg/dL (70-99) White Blood Count 11.8 x10^3/uL (4.0-11.0) Red Blood Count 3.81 x10^6/uL (3.50-5.40) Hemoglobin 11.2 g/dL (12.0-15.5) Hematocrit 34.4 % (36.0-47.0) Mean Corpuscular Volume 90 fL (79-100) Mean Corpuscular Hemoglobin 29 pg (25-35) Mean Corpuscular Hemoglobin Concent 33 g/dL (31-37) Red Cell Distribution Width 15.0 % (11.5-14.5) Platelet Count 213 x10^3/uL (140-400) Neutrophils (%) (Auto) 82 % (31-73) Lymphocytes (%) (Auto) 13 % (24-48) Monocytes (%) (Auto) 5 % (0-9) Eosinophils (%) (Auto) 0 % (0-3) Basophils (%) (Auto) 1 % (0-3) Neutrophils # (Auto) 9.7 x10^3/uL (1.8-7.7) Lymphocytes # (Auto) 1.5 x10^3/uL (1.0-4.8) Monocytes # (Auto) 0.6 x10^3/uL (0.0-1.1) Eosinophils # (Auto) 0.0 x10^3/uL (0.0-0.7) Basophils # (Auto) 0.1 x10^3/uL (0.0-0.2) Heparin Anti-Xa Act, Unfractionated < 0.10 IU/mL (0.30-0.70) Sodium Level 140 mmol/L (136-145) Potassium Level 3.2 mmol/L (3.5-5.1) Chloride Level 107 mmol/L (98-107) Carbon Dioxide Level 24 mmol/L (21-32) Anion Gap 9 (6-14) Blood Urea Nitrogen 23 mg/dL (7-20) Creatinine 1.3 mg/dL (0.6-1.0) Estimated GFR (Cockcroft-Gault) 42.5 BUN/Creatinine Ratio 18 (6-20) Glucose Level 117 mg/dL (70-99) Calcium Level 7.4 mg/dL (8.5-10.1) Magnesium Level 2.1 mg/dL (1.8-2.4) Total Bilirubin 1.0 mg/dL (0.2-1.0) Aspartate Amino Transf (AST/SGOT) 153 U/L (15-37) Alanine Aminotransferase (ALT/SGPT) 80 U/L (14-59) Alkaline Phosphatase 84 U/L (46-116) Total Protein 5.8 g/dL (6.4-8.2) Albumin 2.3 g/dL (3.4-5.0) Albumin/Globulin Ratio 0.7 (1.0-1.7) O2 Saturation 99 % (92-99) Arterial Blood pH 7.49 (7.35-7.45) Arterial Blood pCO2 at Patient Temp 29 mmHg (35-46) Arterial Blood pO2 at Patient Temp 162 mmHg (75-108) Arterial Blood HCO3 22 mmol/L (21-28) Arterial Blood Base Excess -1 mmol/L (-3-3) FiO2 50 Microbiology Micro Microbiology 02/01/22 Blood Culture - Preliminary, Resulted NO GROWTH AFTER 1 DAY 02/01/22 Urine Culture - Final, Complete Physical Exam HEENT: Neck Supple W Full Motion LUNGS: Other (diminished, intubated with MV) Heart: RRR (SR) Abdomen: Other (soft, obese) Extremities: Other (1+ bilateral LE pitting edema) Neurology: other (unresponsive, off sedation) Assessment Assessment 1. Vfib/VT cardiac arrest: unclear downtime prior to resuscitation. Received 3 defibrillation, lidocaine and 3 round of epinephrine. No known cardiac history 2. Hypokalemia/hypomagnesemia 3. Mild tranasminitis 4. DOMINIC: Cr stable 5. Encephalopathy 6. Acute respiratory failure r/t cardiac arrest and possible aspiration: intubated with MV 7. Possible sleep apnea 8. Morbid obesity 9. On Adderall therapy Recommendations 1. ASA. Continue heparin drip 2. Change to PO amiodarone. Low dose BB. Replace K and Mg per trend 3. Continue pulmonary optimization 4. Consult neurology 5. TTE 6. Ischemic workup if there is meaningful neurological recovery. Justicifation of Admission Dx: Justifications for Admission: Justification of Admission Dx: Yes CARON ANDREA MD 02/03/229: CARDIO Progress Notes Plan Plan Patient seen and examined. Agree with above nurse practitioner note. Discussed with nursing staff. Stable from a cardiovascular perspective. Anticipate that we will stop heparin tomorrow If neurologic recovery is improved we will likely plan for cardiac catheterization tomorrow. Supportive care for now. BELEM MUNIZ APRN Feb 03, 2022 11:21 CARON ANDREA MD Feb 03, 2022 21:49
[2022-02-03] MEDS: METOPROLOL TART IMMED RELEASE 25 MG TABLET. PO SCH ×2 (13:22→20:51)
--- NOTE | 2022-02-03 14:04 | PDOC ---
[facility] PROGRESS NOTE Date of Service DOS: DATE: 02/03/22 TIME: 14:03 Chief Complaint Chief Complaint Acute hypoxic respiratory failure , possible aspiration Vfib/VTach cardiac arrest Hypokalemia/hypomagnesemia acute renal failure concern for brain injury with arrest, better today , some reflexes, dolls eyes sluggish, some gag, not always Morbid obesity, BMI 46 History of Present Illness History of Present Illness cont care in ICU, on vent Pulmonary, CV following e-lyte management, ICU protocol ordered lighten sedation as able, poor reflexes currently cont the antibiotics CV consuted started on heparin drip amiodarone drip. ICU care Vitals/I&O Vitals/I&O: Vital Signs Date Time Temp Pulse Resp B/P (MAP) Pulse Ox O2 Delivery O2 Flow Rate FiO2 02/03/22 13:22 81 128/80 02/03/22 12:52 99 Ventilator 02/03/22 10:00 20 02/03/22 08:00 98.6 98.6 I & O 02/02/22 02/02/22 02/03/22 15:00 23:00 07:00 Intake Total 50 ml 3120 ml 3772.81 ml Output Total 130 ml 305 ml 210 ml Balance -80 ml 2815 ml 3562.81 ml Physical Exam General: Other (sedated) Heart: Regular rate (SR with PVCs), Other (distant heart sounds) Lungs: Clear, Other (vent soudds, clear, ) Abdomen: Soft, Other (obese) Extremities: No cyanosis, Other (trace LE ) Skin: No breakdown Labs Labs: Laboratory Tests Test 02/03/22 03:20 02/03/22 07:50 02/03/22 13:13 White Blood Count 11.8 x10^3/uL (4.0-11.0) Red Blood Count 3.81 x10^6/uL (3.50-5.40) Hemoglobin 11.2 g/dL (12.0-15.5) Hematocrit 34.4 % (36.0-47.0) Mean Corpuscular Volume 90 fL (79-100) Mean Corpuscular Hemoglobin 29 pg (25-35) Mean Corpuscular Hemoglobin Concent 33 g/dL (31-37) Red Cell Distribution Width 15.0 % (11.5-14.5) Platelet Count 213 x10^3/uL (140-400) Neutrophils (%) (Auto) 82 % (31-73) Lymphocytes (%) (Auto) 13 % (24-48) Monocytes (%) (Auto) 5 % (0-9) Eosinophils (%) (Auto) 0 % (0-3) Basophils (%) (Auto) 1 % (0-3) Neutrophils # (Auto) 9.7 x10^3/uL (1.8-7.7) Lymphocytes # (Auto) 1.5 x10^3/uL (1.0-4.8) Monocytes # (Auto) 0.6 x10^3/uL (0.0-1.1) Eosinophils # (Auto) 0.0 x10^3/uL (0.0-0.7) Basophils # (Auto) 0.1 x10^3/uL (0.0-0.2) Heparin Anti-Xa Act, Unfractionated < 0.10 IU/mL (0.30-0.70) < 0.10 IU/mL (0.30-0.70) Sodium Level 140 mmol/L (136-145) Potassium Level 3.2 mmol/L (3.5-5.1) Chloride Level 107 mmol/L (98-107) Carbon Dioxide Level 24 mmol/L (21-32) Anion Gap 9 (6-14) Blood Urea Nitrogen 23 mg/dL (7-20) Creatinine 1.3 mg/dL (0.6-1.0) Estimated GFR (Cockcroft-Gault) 42.5 BUN/Creatinine Ratio 18 (6-20) Glucose Level 117 mg/dL (70-99) Calcium Level 7.4 mg/dL (8.5-10.1) Magnesium Level 2.1 mg/dL (1.8-2.4) Total Bilirubin 1.0 mg/dL (0.2-1.0) Aspartate Amino Transf (AST/SGOT) 153 U/L (15-37) Alanine Aminotransferase (ALT/SGPT) 80 U/L (14-59) Alkaline Phosphatase 84 U/L (46-116) Total Protein 5.8 g/dL (6.4-8.2) Albumin 2.3 g/dL (3.4-5.0) Albumin/Globulin Ratio 0.7 (1.0-1.7) O2 Saturation 99 % (92-99) Arterial Blood pH 7.49 (7.35-7.45) Arterial Blood pCO2 at Patient Temp 29 mmHg (35-46) Arterial Blood pO2 at Patient Temp 162 mmHg (75-108) Arterial Blood HCO3 22 mmol/L (21-28) Arterial Blood Base Excess -1 mmol/L (-3-3) FiO2 50 Troponin I High Sensitivity 67 ng/L (4-50) Assessment and Plan Assessmemt and Plan Problems Medical Problems: (1) Fever Status: Acute Comment Review of Relevant I have reviewed the following items alf (where applicable) has been applied. Medications: Current Medications Medications (Trade) Dose Ordered Sig/Katia Route PRN Reason Start Time Stop Time Status Last Admin Dose Admin Aspirin (Aspirin Chewable) 81 mg [id number] PO 02/03/22 08:00 02/03/22 08:30 Amiodarone HCl 450 mg/Dextrose 259 ml @ 34.533 mls/ hr CONT PRN IV SEE I/O RECORD 02/02/22 16:45 02/03/22 11:18 DC 02/03/22 10:24 Ampicillin Sodium/ Sulbactam Sodium 3 gm/Dextrose 100 ml @ 200 mls/hr Q6HRS IV 02/02/22 18:00 02/03/22 11:59 DC 02/03/22 05:32 Sodium Chloride 1,000 ml @ 1,000 mls/hr 1X ONCE IV 02/02/22 16:30 02/02/22 19:52 DC 02/02/22 20:01 Sodium Chloride 1,000 ml @ 1,000 mls/hr 1X ONCE IV 02/02/22 20:00 02/02/22 20:59 DC 02/02/22 20:19 Ampicillin Sodium/ Sulbactam Sodium 3 gm/Dextrose 100 ml @ 200 mls/hr Q6HRS IV 02/03/22 12:00 02/03/22 13:21 Potassium Bicarbonate (Potassium Effervescent Tablet) 40 meq 1X ONCE PEG 02/03/22 04:15 02/03/22 04:19 DC 02/03/22 04:50 Info (Anti-Coagulation Monitoring By Pharmacy) 1 each PRN DAILY PRN MC PER PROTOCOL 02/03/22 09:00 02/03/22 08:56 Potassium Bicarbonate (Potassium Effervescent Tablet) 40 meq 1X ONCE PEG 02/03/22 11:15 02/03/22 11:19 DC 02/03/22 11:46 Metoprolol Tartrate (Lopressor) 12.5 mg BID PO 02/03/22 12:00 02/03/22 13:22 Justifications for Admission Other Justification SILVIANO SIMMS MD Feb 03, 2022 14:04
[2022-02-04] VITALS (24 sets, daily range): BP systolic 113–154; BP diastolic 66–93
[2022-02-04] MEDS: AMPICILLIN/SULBACTAM 3 GM in IV DEXTROSE 5% 100ML 100 ML IV SCH ×4 (00:30→18:13)
[2022-02-04] MEDS: HEPARIN 25,000UTS/250ML PREMIX 250 ML IV PRN (00:31)
--- NOTE | 2022-02-04 08:14 | RAD ---
XR CHEST 1V History: Reason: intubation 102 / Spl. Instructions: / History: Comparison: February 03, 2022 Findings: Stable endotracheal tube, enteric tube and right IJ central line. Increased patchy mid and bibasilar opacities. No pleural effusion. No pneumothorax. Impression: 1. Increased patchy mid and bibasilar opacities, left greater than right. Electronically signed by: Jose De León DO (02/04/2022 8:11 AM) [id number]
[2022-02-04] MEDS: SENNOSIDES/DOCUSATE 8.6/50MG TABLET. PO SCH ×2 (08:27→20:27)
[2022-02-04] MEDS: ASPIRIN CHEWABLE 81 MG TABLET. PO SCH (08:27)
[2022-02-04] MEDS: AMIODARONE HCL 200 MG TABLET. PO SCH (08:28)
[2022-02-04] MEDS: CHLORHEXIDINE 0.12% 15 ML MOUTHWASH. MM SCH ×2 (08:29→20:27)
[2022-02-04] MEDS: METOPROLOL TART IMMED RELEASE 25 MG TABLET. PO SCH ×2 (08:29→20:27)
[2022-02-04] MEDS: FAMOTIDINE 20 MG/2 ML VIAL IVP SCH ×2 (08:29→20:27)
--- NOTE | 2022-02-04 08:32 | PDOC ---
[employer] PROGRESS NOTE Date of Service DOS: DATE: 02/04/22 TIME: 08:30 Chief Complaint Chief Complaint Acute hypoxic respiratory failure , possible aspiration Vfib/VTach cardiac arrest Hypokalemia/hypomagnesemia acute renal failure concern for brain injury with arrest, better today , some reflexes, dolls eyes sluggish, some gag, not always Morbid obesity, BMI 46 History of Present Illness History of Present Illness cont care in ICU, on vent Pulmonary, CV following e-lyte management, ICU protocol ordered lighten sedation as able, poor reflexes currently cont the antibiotics CV consuted started on heparin drip amiodarone drip. ICU care to cont Vitals/I&O Vitals/I&O: Vital Signs Date Time Temp Pulse Resp B/P (MAP) Pulse Ox O2 Delivery O2 Flow Rate FiO2 02/04/22 08:29 75 125/77 02/04/22 07:20 99 Ventilator 02/04/22 07:00 20 02/04/22 04:00 98.7 98.7 I & O 02/03/22 02/03/22 02/04/22 15:00 23:00 07:00 Intake Total 390 ml 1518 ml 1440.3 ml Output Total 183 ml 310 ml 215 ml Balance 207 ml 1208 ml 1225.3 ml Physical Exam General: Other (sedated) Heart: Regular rate (SR with PVCs), Other (distant heart sounds) Lungs: Clear, Other (vent soudds, clear, ) Abdomen: Soft, Other (obese) Extremities: No cyanosis, Other (trace LE ) Skin: No breakdown Labs Labs: Laboratory Tests Test 02/03/22 13:13 02/03/22 20:34 02/04/22 03:10 Heparin Anti-Xa Act, Unfractionated < 0.10 IU/mL (0.30-0.70) 0.82 IU/mL (0.30-0.70) 0.67 IU/mL (0.30-0.70) Troponin I High Sensitivity 67 ng/L (4-50) Assessment and Plan Assessmemt and Plan Problems Medical Problems: (1) Fever Status: Acute Comment Review of Relevant I have reviewed the following items alf (where applicable) has been applied. Medications: Current Medications Medications (Trade) Dose Ordered Sig/Katia Route PRN Reason Start Time Stop Time Status Last Admin Dose Admin Ampicillin Sodium/ Sulbactam Sodium 3 gm/Dextrose 100 ml @ 200 mls/hr Q6HRS IV 02/03/22 12:00 02/04/22 06:18 Info (Anti-Coagulation Monitoring By Pharmacy) 1 each PRN DAILY PRN MC PER PROTOCOL 02/03/22 09:00 02/03/22 08:56 Potassium Bicarbonate (Potassium Effervescent Tablet) 40 meq 1X ONCE PEG 02/03/22 11:15 02/03/22 11:19 DC 02/03/22 11:46 Amiodarone HCl (Cordarone) 400 mg DAILY PO 02/04/22 09:00 02/04/22 08:28 Metoprolol Tartrate (Lopressor) 12.5 mg BID PO 02/03/22 12:00 02/04/22 08:29 Justifications for Admission Other Justification SILVIANO SIMMS MD Feb 04, 2022 08:32
[2022-02-04 08:34] LABS: BASE EXCESS ABG 2 mmol/L (-3-3); FIO2 ABG 40; HCO3 ABG 24 mmol/L (21-28); PCO2 ABG 30 mmHg (35-46); PO2 ABG 112 mmHg (75-108); SAT O2 ABG 98 % (92-99)
[2022-02-04] MEDS: ANTI-COAG MONITOR BY PHARMACY. MC PRN (08:37)
[2022-02-04] MEDS ORDERED: POTASSIUM BICARB 20 MEQ EFFERVESCENT TABLET. FT ONE (09:30)
--- NOTE | 2022-02-04 10:04 | PDOC ---
PULMONARY PROGRESS NOTES DATE: 02/04/22 TIME: 09:58 Subjective Patient remains on mechanical ventilation, no sedation at this time Overbreathing the ventilator, afebrile, no overnight concerns from nursing Vitals Vital Signs Date Time Temp Pulse Resp B/P (MAP) Pulse Ox O2 Delivery O2 Flow Rate FiO2 02/04/22 09:31 99 Ventilator 02/04/22 08:29 75 125/77 02/04/22 07:00 20 02/04/22 04:00 98.7 98.7 Comments Remains intubated on assist control mode Lungs: Clear Cardiovascular: S1, S2 Abdomen: Soft, Non-tender, Other (Obese) Extremities: Other (1+ edema) Skin: Warm Labs Laboratory Tests Test 02/02/22 11:00 02/02/22 12:21 02/02/22 12:25 02/03/22 03:20 Potassium Level 3.3 mmol/L (3.5-5.1) 3.2 mmol/L (3.5-5.1) Magnesium Level 2.2 mg/dL (1.8-2.4) 2.1 mg/dL (1.8-2.4) Activated Partial Thromboplast Time 37 SEC (24-38) Glucose (Fingerstick) 106 mg/dL (70-99) White Blood Count 11.8 x10^3/uL (4.0-11.0) Red Blood Count 3.81 x10^6/uL (3.50-5.40) Hemoglobin 11.2 g/dL (12.0-15.5) Hematocrit 34.4 % (36.0-47.0) Mean Corpuscular Volume 90 fL (79-100) Mean Corpuscular Hemoglobin 29 pg (25-35) Mean Corpuscular Hemoglobin Concent 33 g/dL (31-37) Red Cell Distribution Width 15.0 % (11.5-14.5) Platelet Count 213 x10^3/uL (140-400) Neutrophils (%) (Auto) 82 % (31-73) Lymphocytes (%) (Auto) 13 % (24-48) Monocytes (%) (Auto) 5 % (0-9) Eosinophils (%) (Auto) 0 % (0-3) Basophils (%) (Auto) 1 % (0-3) Neutrophils # (Auto) 9.7 x10^3/uL (1.8-7.7) Lymphocytes # (Auto) 1.5 x10^3/uL (1.0-4.8) Monocytes # (Auto) 0.6 x10^3/uL (0.0-1.1) Eosinophils # (Auto) 0.0 x10^3/uL (0.0-0.7) Basophils # (Auto) 0.1 x10^3/uL (0.0-0.2) Heparin Anti-Xa Act, Unfractionated < 0.10 IU/mL (0.30-0.70) Sodium Level 140 mmol/L (136-145) Chloride Level 107 mmol/L (98-107) Carbon Dioxide Level 24 mmol/L (21-32) Anion Gap 9 (6-14) Blood Urea Nitrogen 23 mg/dL (7-20) Creatinine 1.3 mg/dL (0.6-1.0) Estimated GFR (Cockcroft-Gault) 42.5 BUN/Creatinine Ratio 18 (6-20) Glucose Level 117 mg/dL (70-99) Calcium Level 7.4 mg/dL (8.5-10.1) Total Bilirubin 1.0 mg/dL (0.2-1.0) Aspartate Amino Transf (AST/SGOT) 153 U/L (15-37) Alanine Aminotransferase (ALT/SGPT) 80 U/L (14-59) Alkaline Phosphatase 84 U/L (46-116) Total Protein 5.8 g/dL (6.4-8.2) Albumin 2.3 g/dL (3.4-5.0) Albumin/Globulin Ratio 0.7 (1.0-1.7) Test 02/03/22 07:50 02/03/22 13:13 02/03/22 20:34 02/04/22 03:10 O2 Saturation 99 % (92-99) Arterial Blood pH 7.49 (7.35-7.45) Arterial Blood pCO2 at Patient Temp 29 mmHg (35-46) Arterial Blood pO2 at Patient Temp 162 mmHg (75-108) Arterial Blood HCO3 22 mmol/L (21-28) Arterial Blood Base Excess -1 mmol/L (-3-3) FiO2 50 Heparin Anti-Xa Act, Unfractionated < 0.10 IU/mL (0.30-0.70) 0.82 IU/mL (0.30-0.70) 0.67 IU/mL (0.30-0.70) Troponin I High Sensitivity 67 ng/L (4-50) Test 02/04/22 07:40 O2 Saturation 98 % (92-99) Arterial Blood pH 7.52 (7.35-7.45) Arterial Blood pCO2 at Patient Temp 30 mmHg (35-46) Arterial Blood pO2 at Patient Temp 112 mmHg (75-108) Arterial Blood HCO3 24 mmol/L (21-28) Arterial Blood Base Excess 2 mmol/L (-3-3) FiO2 40 Laboratory Tests Test 02/03/22 13:13 02/03/22 20:34 02/04/22 03:10 02/04/22 07:40 Heparin Anti-Xa Act, Unfractionated < 0.10 IU/mL (0.30-0.70) 0.82 IU/mL (0.30-0.70) 0.67 IU/mL (0.30-0.70) Troponin I High Sensitivity 67 ng/L (4-50) O2 Saturation 98 % (92-99) Arterial Blood pH 7.52 (7.35-7.45) Arterial Blood pCO2 at Patient Temp 30 mmHg (35-46) Arterial Blood pO2 at Patient Temp 112 mmHg (75-108) Arterial Blood HCO3 24 mmol/L (21-28) Arterial Blood Base Excess 2 mmol/L (-3-3) FiO2 40 Comments Chest x-ray reviewed 02/03/2022. Mild bilateral interstitial infiltrates Impression . 1. Acute hypoxic respiratory failure secondary to cardiac arrest and suspected aspiration. 2. Status post ventricular fibrillation and ventricular tachycardia cardiac arrest, requiring multiple shocks, epinephrine with return of spontaneous circulation. The duration since she was found unresponsive was probably very long and as a result, she was not considered a candidate for hypothermia. 3. Abnormal CT chest with upper lobe infiltrates and some basal atelectasis. Suspect component of aspiration. 4. Leukocytosis.--Ongoing/improved 5. Acute kidney injury. 6. Hypokalemia. May be contributing to ventricular fibrillation and ventricular tachycardia. Improved 7. Lactic acidosis secondary to shock, now resolved. 8. Abnormal liver function tests secondary to shock liver. 9. Possible urinary tract infection./She has ureteral stone. 10. Cannot exclude anoxic encephalopathy. Plan . Updated 02/04/2022 Continue current ventilatory support, ABG reviewed Continue to monitor neurology status concern for anoxic injury, will monitor off sedation for 48-70 further decisions regards to plan of care Monitor renal function/liver function Follow cardiology recommendations--continue amiodarone/heparin Continue antibiotics, follow cultures DVT/GI prophylaxis Discussed with RN and RT and son at bedside Critical care time 35 minutes RECOMMENDATIONS: 1. Continue present assist control mode. Follow ABGs and make necessary adjustments. Will reduce the rate today. Wean FiO2 as well. 2. Follow-up cardiology recommendation regarding need for cardiac catheterization. Currently on amiodarone. We will need to first rule out any anoxic encephalopathy before any intervention. 3. Replace electrolytes. 4. Monitor liver function test. 5. Patient is off the Versed. Discontinue fentanyl and assess for mental status. 6. Discussed with cardiology [employer]PER[employer] SPECIALIST. 7. Continue DVT prophylaxis. 8. enteral nutrition. 9. Stress ulcer prophylaxis. 10. Replace potassium per protocol. 11. Continue Unasyn for now for possible UTI/renal stone 12. Discussed with RN and RT. Chart reviewed, imaging studies reviewed. critical care time 30 minutes MAYDA KIM MD Feb 04, 2022 10:04
--- NOTE | 2022-02-04 10:20 | PDOC ---
CARDIO Progress Notes Date and Time Date of Service 02/04/2022 Time of Evaluation 1000 Subjective Subjective: Other (unobtainable on MV) Vitals Vitals Vital Signs Date Time Temp Pulse Resp B/P (MAP) Pulse Ox O2 Delivery O2 Flow Rate FiO2 02/04/22 09:31 99 Ventilator 02/04/22 08:29 75 125/77 02/04/22 07:00 20 02/04/22 04:00 98.7 98.7 Weight Weight [ ] Input and Output Intake and Output Intake and Output 02/04/22 07:00 Intake Total 3348.3 ml Output Total 708 ml Balance 2640.3 ml IV Total 1176.3 ml Tube Feeding 1932 ml Other 240 ml Output Urine Total 708 ml Laboratory Labs Laboratory Tests Test 02/03/22 13:13 02/03/22 20:34 02/04/22 03:10 02/04/22 07:40 Heparin Anti-Xa Act, Unfractionated < 0.10 IU/mL (0.30-0.70) 0.82 IU/mL (0.30-0.70) 0.67 IU/mL (0.30-0.70) Troponin I High Sensitivity 67 ng/L (4-50) O2 Saturation 98 % (92-99) Arterial Blood pH 7.52 (7.35-7.45) Arterial Blood pCO2 at Patient Temp 30 mmHg (35-46) Arterial Blood pO2 at Patient Temp 112 mmHg (75-108) Arterial Blood HCO3 24 mmol/L (21-28) Arterial Blood Base Excess 2 mmol/L (-3-3) FiO2 40 Microbiology Micro Microbiology 02/01/22 Blood Culture - Preliminary, Resulted NO GROWTH AFTER 2 DAYS 02/01/22 Urine Culture - Final, Complete Physical Exam HEENT: Neck Supple W Full Motion LUNGS: Other (diminished, intubated with MV) Heart: RRR (SR) Abdomen: Other (soft, obese) Extremities: Other (1+ bilateral LE pitting edema) Neurology: other (unresponsive, off sedation) Assessment Assessment 1. Vfib/VT cardiac arrest: unclear downtime prior to resuscitation. Received 3 defibrillation, lidocaine and 3 round of epinephrine. No known cardiac history 2. Hypokalemia/hypomagnesemia: post replacement 3. Mild tranasminitis 4. DOMINIC: Cr stable 5. Encephalopathy: unresponsive. off sedation since 11 AM yesterday 6. Acute respiratory failure r/t cardiac arrest and possible aspiration: intubated with MV, pulmonary following 7. Possible sleep apnea 8. Morbid obesity 9. On home Adderall therapy Recommendations 1. ASA. Continue heparin drip 2. Change to PO amiodarone. Low dose BB. Replace K and Mg per trend 3. Continue pulmonary optimization 4. Await neuro input. Ischemic workup if there is meaningful neurological recovery. 5. TTE, BMP/Mg today Justicifation of Admission Dx: Justifications for Admission: Justification of Admission Dx: Yes BELEM MUNIZ [employer] ROLLER OPERATOR Feb 04, 2022 10:20
[2022-02-04 11:27] LABS: POTASSIUM 4.4 mmol/L (3.5-5.1)
[2022-02-04 11:36] LABS: CALCIUM 7.6 mg/dL (8.5-10.1); CREATININE 0.9 mg/dL (0.6-1.0)
--- NOTE | 2022-02-04 12:44 | PDOC ---
PROGRESS NOTE DATE OF SERVICE: DATE: 02/04/22 TIME: 12:40 CHIEF COMPLAINT: Kidney stone, cardiac arrest Patient continues to be on ventilator. Her sons are present. They are aware that patient has a known 7 mm kidney stone that plans to be followed up with outpatient after her acute hospitalization SUBJECTIVE: HPI: Duration: [] Quality: [] Severity: [] Site/Location: [] Problems: Problems Medical Problems: (1) Fever Status: Acute OBJECTIVE: Vital Signs: Vital Signs Date Time Temp Pulse Resp B/P (MAP) Pulse Ox O2 Delivery O2 Flow Rate FiO2 02/04/22 12:07 99 Ventilator 02/04/22 11:00 66 18 119/72 99 Ventilator 02/04/22 10:00 64 16 127/74 99 Ventilator 02/04/22 09:31 99 Ventilator 02/04/22 09:00 72 16 133/74 99 Ventilator 02/04/22 08:29 75 125/77 02/04/22 08:28 75 125/77 02/04/22 08:00 Mechanical Ventilator 02/04/22 08:00 98.7 72 17 125/79 99 Ventilator 98.7 02/04/22 07:20 99 Ventilator 02/04/22 07:00 72 20 113/66 100 Ventilator 02/04/22 06:00 74 20 133/73 99 Ventilator 02/04/22 05:20 98 Ventilator 02/04/22 05:00 72 20 131/73 99 Ventilator 02/04/22 04:00 Mechanical Ventilator 02/04/22 04:00 98.7 72 20 133/77 99 Ventilator 98.7 02/04/22 03:00 72 20 126/77 99 Ventilator 02/04/22 02:35 99 Ventilator 02/04/22 02:00 72 20 122/76 99 Ventilator 02/04/22 01:00 72 20 135/74 99 Ventilator 02/04/22 00:16 99 Ventilator 02/04/22 00:00 98.5 72 20 136/71 99 Ventilator 98.5 02/03/22 23:59 Mechanical Ventilator 02/03/22 23:00 73 20 131/77 99 Ventilator 02/03/22 22:36 99 Ventilator 02/03/22 22:00 71 20 134/78 99 Ventilator 02/03/22 21:00 78 20 138/86 99 Ventilator 02/03/22 20:51 78 137/80 02/03/22 20:25 99 Ventilator 02/03/22 20:00 98.7 78 20 131/79 99 Ventilator 98.7 02/03/22 20:00 Mechanical Ventilator 02/03/22 19:00 78 20 137/83 99 Ventilator 02/03/22 18:00 74 20 128/82 98 Ventilator 02/03/22 17:00 74 20 132/83 99 Ventilator 02/03/22 16:00 Mechanical Ventilator 02/03/22 16:00 98.7 76 20 123/77 99 Ventilator 98.7 02/03/22 15:41 99 Ventilator 02/03/22 15:00 74 20 116/78 99 Ventilator 02/03/22 14:00 74 20 122/76 99 Ventilator 02/03/22 13:22 81 128/80 02/03/22 13:00 82 20 130/79 99 Ventilator 02/03/22 12:52 99 Ventilator I & O Intake and Output 02/04/22 07:00 Intake Total 3348.3 ml Output Total 708 ml Balance 2640.3 ml IV Total 1176.3 ml Tube Feeding 1932 ml Other 240 ml Output Urine Total 708 ml PHYSICAL EXAM: Physical Exam: GENERAL: Respiratory support on the ventilator SKIN: warm, dry RESPIRATORY: Aerating well, symmetrical expansion, on ventilator GI: Soft, nontender, no guarding, no rebound : Normal anatomy, no lesions, no CVA tenderness, Perea with clear yellow urine output LABS: Laboratory Tests Test 02/01/22 16:20 02/01/22 16:31 02/01/22 16:45 02/01/22 19:12 White Blood Count 22.5 x10^3/uL (4.0-11.0) Red Blood Count 4.41 x10^6/uL (3.50-5.40) Hemoglobin 13.1 g/dL (12.0-15.5) Hematocrit 40.8 % (36.0-47.0) Mean Corpuscular Volume 92 fL (79-100) Mean Corpuscular Hemoglobin 30 pg (25-35) Mean Corpuscular Hemoglobin Concent 32 g/dL (31-37) Red Cell Distribution Width 14.5 % (11.5-14.5) Platelet Count 315 x10^3/uL (140-400) Neutrophils (%) (Auto) 78 % (31-73) Lymphocytes (%) (Auto) 15 % (24-48) Monocytes (%) (Auto) 7 % (0-9) Eosinophils (%) (Auto) 0 % (0-3) Basophils (%) (Auto) 0 % (0-3) Neutrophils # (Auto) 17.5 x10^3/uL (1.8-7.7) Lymphocytes # (Auto) 3.4 x10^3/uL (1.0-4.8) Monocytes # (Auto) 1.5 x10^3/uL (0.0-1.1) Eosinophils # (Auto) 0.0 x10^3/uL (0.0-0.7) Basophils # (Auto) 0.1 x10^3/uL (0.0-0.2) Segmented Neutrophils % 62 % (35-66) Band Neutrophils % 19 % (0-9) Lymphocytes % 12 % (24-48) Monocytes % 6 % (0-10) Metamyelocytes % 1 % (0-0) Platelet Estimate Adequate (ADEQUATE) Prothrombin Time 14.9 SEC (11.7-14.0) Prothromb Time International Ratio 1.2 (0.8-1.1) Sodium Level 140 mmol/L (136-145) Potassium Level 3.6 mmol/L (3.5-5.1) Chloride Level 101 mmol/L (98-107) Carbon Dioxide Level 23 mmol/L (21-32) Anion Gap 16 (6-14) Blood Urea Nitrogen 10 mg/dL (7-20) Creatinine 1.4 mg/dL (0.6-1.0) Estimated GFR (Cockcroft-Gault) 39.0 BUN/Creatinine Ratio 7 (6-20) Glucose Level 222 mg/dL (70-99) Lactic Acid Level 9.0 mmol/L (0.4-2.0) Calcium Level 8.0 mg/dL (8.5-10.1) Phosphorus Level 4.0 mg/dL (2.6-4.7) Magnesium Level 1.7 mg/dL (1.8-2.4) Total Bilirubin 0.6 mg/dL (0.2-1.0) Aspartate Amino Transf (AST/SGOT) 115 U/L (15-37) Alanine Aminotransferase (ALT/SGPT) 93 U/L (14-59) Alkaline Phosphatase 91 U/L (46-116) Troponin I High Sensitivity 44 ng/L (4-50) JX-Yab-C-Type Natriuretic Peptide 2321 pg/mL (0-124) Total Protein 6.9 g/dL (6.4-8.2) Albumin 3.1 g/dL (3.4-5.0) Albumin/Globulin Ratio 0.8 (1.0-1.7) Ethyl Alcohol Level < 10 mg/dL (0-10) Urine Collection Type U cath Urine Color Yellow Urine Clarity Clear Urine pH 5.5 (<5.0-8.0) Urine Specific Kiester 1.020 (1.000-1.030) Urine Protein Negative mg/dL (NEG-TRACE) Urine Glucose (UA) Negative mg/dL (NEG) Urine Ketones (Stick) Negative mg/dL (NEG) Urine Blood Large (NEG) Urine Nitrite Negative (NEG) Urine Bilirubin Negative (NEG) Urine Urobilinogen Dipstick 0.2 mg/dL (0.2 mg/dL) Urine Leukocyte Esterase Negative (NEG) Urine RBC >40 /HPF (0-2) Urine WBC 5-10 /HPF (0-4) Urine Squamous Epithelial Cells Mod /LPF Urine Bacteria 0 /HPF (0-FEW) Urine Mucus Marked /LPF Urine Opiates Screen Neg (NEG) Urine Methadone Screen Neg (NEG) Urine Barbiturates Neg (NEG) Urine Phencyclidine Screen Neg (NEG) Urine Amphetamine/Methamphetamine Neg (NEG) Urine Benzodiazepines Screen Neg (NEG) Urine Cocaine Screen Neg (NEG) Urine Cannabinoids Screen Neg (NEG) Urine Ethyl Alcohol Neg (NEG) O2 Saturation 99 % (92-99) Arterial Blood pH 7.30 (7.35-7.45) Arterial Blood pH (Temp corrected) 7.27 Arterial Blood pCO2 at Patient Temp 39 mmHg (35-46) Arterial Blood pCO2 (Temp correct) 43 mmHg Arterial Blood pO2 at Patient Temp 228 mmHg (75-108) Arterial Blood pO2 (Temp corrected) 240 mmHg Arterial Blood HCO3 19 mmol/L (21-28) Arterial Blood Base Excess -7 mmol/L (-3-3) FiO2 100% ac 20 500 5 Coronavirus (COVID-19)(PCR) Not detected (NOT DETECTD) SARS-CoV-2 Antigen (Rapid) Negative (NEGATIVE) Test 02/01/22 21:05 02/02/22 05:20 02/02/22 08:00 02/02/22 11:00 Lactic Acid Level 2.1 mmol/L (0.4-2.0) White Blood Count 19.3 x10^3/uL (4.0-11.0) Red Blood Count 4.58 x10^6/uL (3.50-5.40) Hemoglobin 13.3 g/dL (12.0-15.5) Hematocrit 40.9 % (36.0-47.0) Mean Corpuscular Volume 89 fL (79-100) Mean Corpuscular Hemoglobin 29 pg (25-35) Mean Corpuscular Hemoglobin Concent 33 g/dL (31-37) Red Cell Distribution Width 14.7 % (11.5-14.5) Platelet Count 263 x10^3/uL (140-400) Neutrophils (%) (Auto) 87 % (31-73) Lymphocytes (%) (Auto) 6 % (24-48) Monocytes (%) (Auto) 7 % (0-9) Eosinophils (%) (Auto) 0 % (0-3) Basophils (%) (Auto) 0 % (0-3) Neutrophils # (Auto) 16.8 x10^3/uL (1.8-7.7) Lymphocytes # (Auto) 1.2 x10^3/uL (1.0-4.8) Monocytes # (Auto) 1.3 x10^3/uL (0.0-1.1) Eosinophils # (Auto) 0.0 x10^3/uL (0.0-0.7) Basophils # (Auto) 0.0 x10^3/uL (0.0-0.2) Sodium Level 142 mmol/L (136-145) Potassium Level 2.9 mmol/L (3.5-5.1) 3.3 mmol/L (3.5-5.1) Chloride Level 105 mmol/L (98-107) Carbon Dioxide Level 24 mmol/L (21-32) Anion Gap 13 (6-14) Blood Urea Nitrogen 16 mg/dL (7-20) Creatinine 1.6 mg/dL (0.6-1.0) Estimated GFR (Cockcroft-Gault) 33.5 BUN/Creatinine Ratio 10 (6-20) Glucose Level 108 mg/dL (70-99) Calcium Level 8.2 mg/dL (8.5-10.1) Total Bilirubin 1.1 mg/dL (0.2-1.0) Aspartate Amino Transf (AST/SGOT) 239 U/L (15-37) Alanine Aminotransferase (ALT/SGPT) 112 U/L (14-59) Alkaline Phosphatase 78 U/L (46-116) Troponin I High Sensitivity 766 ng/L (4-50) Total Protein 6.9 g/dL (6.4-8.2) Albumin 3.1 g/dL (3.4-5.0) Albumin/Globulin Ratio 0.8 (1.0-1.7) Triglycerides Level 81 mg/dL (0-150) Cholesterol Level 122 mg/dL (0-200) LDL Cholesterol, Calculated 30 mg/dL (0-100) VLDL Cholesterol, Calculated 16 mg/dL (0-40) Non-HDL Cholesterol Calculated 46 mg/dL (0-129) HDL Cholesterol 76 mg/dL (40-60) Cholesterol/HDL Ratio 1.6 Thyroid Stimulating Hormone (TSH) 0.852 uIU/mL (0.358-3.74) Salicylates Level 0.2 mg/dL (2.8-20.0) Salicylate Last Dose Date 02/01/22 Salicylate Last Dose Time 1600 O2 Saturation 98 % (92-99) Arterial Blood pH 7.48 (7.35-7.45) Arterial Blood pCO2 at Patient Temp 31 mmHg (35-46) Arterial Blood pO2 at Patient Temp 120 mmHg (75-108) Arterial Blood HCO3 23 mmol/L (21-28) Arterial Blood Base Excess 0 mmol/L (-3-3) FiO2 50 Magnesium Level 2.2 mg/dL (1.8-2.4) Test 02/02/22 12:21 02/02/22 12:25 02/03/22 03:20 02/03/22 07:50 Activated Partial Thromboplast Time 37 SEC (24-38) Glucose (Fingerstick) 106 mg/dL (70-99) White Blood Count 11.8 x10^3/uL (4.0-11.0) Red Blood Count 3.81 x10^6/uL (3.50-5.40) Hemoglobin 11.2 g/dL (12.0-15.5) Hematocrit 34.4 % (36.0-47.0) Mean Corpuscular Volume 90 fL (79-100) Mean Corpuscular Hemoglobin 29 pg (25-35) Mean Corpuscular Hemoglobin Concent 33 g/dL (31-37) Red Cell Distribution Width 15.0 % (11.5-14.5) Platelet Count 213 x10^3/uL (140-400) Neutrophils (%) (Auto) 82 % (31-73) Lymphocytes (%) (Auto) 13 % (24-48) Monocytes (%) (Auto) 5 % (0-9) Eosinophils (%) (Auto) 0 % (0-3) Basophils (%) (Auto) 1 % (0-3) Neutrophils # (Auto) 9.7 x10^3/uL (1.8-7.7) Lymphocytes # (Auto) 1.5 x10^3/uL (1.0-4.8) Monocytes # (Auto) 0.6 x10^3/uL (0.0-1.1) Eosinophils # (Auto) 0.0 x10^3/uL (0.0-0.7) Basophils # (Auto) 0.1 x10^3/uL (0.0-0.2) Heparin Anti-Xa Act, Unfractionated < 0.10 IU/mL (0.30-0.70) Sodium Level 140 mmol/L (136-145) Potassium Level 3.2 mmol/L (3.5-5.1) Chloride Level 107 mmol/L (98-107) Carbon Dioxide Level 24 mmol/L (21-32) Anion Gap 9 (6-14) Blood Urea Nitrogen 23 mg/dL (7-20) Creatinine 1.3 mg/dL (0.6-1.0) Estimated GFR (Cockcroft-Gault) 42.5 BUN/Creatinine Ratio 18 (6-20) Glucose Level 117 mg/dL (70-99) Calcium Level 7.4 mg/dL (8.5-10.1) Magnesium Level 2.1 mg/dL (1.8-2.4) Total Bilirubin 1.0 mg/dL (0.2-1.0) Aspartate Amino Transf (AST/SGOT) 153 U/L (15-37) Alanine Aminotransferase (ALT/SGPT) 80 U/L (14-59) Alkaline Phosphatase 84 U/L (46-116) Total Protein 5.8 g/dL (6.4-8.2) Albumin 2.3 g/dL (3.4-5.0) Albumin/Globulin Ratio 0.7 (1.0-1.7) O2 Saturation 99 % (92-99) Arterial Blood pH 7.49 (7.35-7.45) Arterial Blood pCO2 at Patient Temp 29 mmHg (35-46) Arterial Blood pO2 at Patient Temp 162 mmHg (75-108) Arterial Blood HCO3 22 mmol/L (21-28) Arterial Blood Base Excess -1 mmol/L (-3-3) FiO2 50 Test 02/03/22 13:13 02/03/22 20:34 02/04/22 03:10 02/04/22 07:40 Heparin Anti-Xa Act, Unfractionated < 0.10 IU/mL (0.30-0.70) 0.82 IU/mL (0.30-0.70) 0.67 IU/mL (0.30-0.70) Troponin I High Sensitivity 67 ng/L (4-50) O2 Saturation 98 % (92-99) Arterial Blood pH 7.52 (7.35-7.45) Arterial Blood pCO2 at Patient Temp 30 mmHg (35-46) Arterial Blood pO2 at Patient Temp 112 mmHg (75-108) Arterial Blood HCO3 24 mmol/L (21-28) Arterial Blood Base Excess 2 mmol/L (-3-3) FiO2 40 Test 02/04/22 10:45 Heparin Anti-Xa Act, Unfractionated 0.60 IU/mL (0.30-0.70) Sodium Level 142 mmol/L (136-145) Potassium Level 4.4 mmol/L (3.5-5.1) Chloride Level 106 mmol/L (98-107) Carbon Dioxide Level 27 mmol/L (21-32) Anion Gap 9 (6-14) Blood Urea Nitrogen 17 mg/dL (7-20) Creatinine 0.9 mg/dL (0.6-1.0) Estimated GFR (Cockcroft-Gault) 65.0 Glucose Level 109 mg/dL (70-99) Calcium Level 7.6 mg/dL (8.5-10.1) Magnesium Level 2.1 mg/dL (1.8-2.4) Microbiology 02/01/22 Blood Culture - Preliminary, Resulted NO GROWTH AFTER 2 DAYS 02/01/22 Urine Culture - Final, Complete MEDICATIONS: Current Medications Medications (Trade) Dose Ordered Sig/Katia Start Time Stop Time Status Last Admin Dose Admin Acetaminophen (Tylenol Supp) 650 mg 1X ONCE 02/01/22 16:45 02/01/22 16:46 DC 02/01/22 17:08 650 MG Acetaminophen (Tylenol) 650 mg PRN Q4HRS PRN 02/01/22 17:30 02/02/22 08:30 DC Amiodarone HCl (Cordarone) 400 mg DAILY 02/04/22 09:00 02/04/22 08:28 400 MG Amiodarone HCl 150 mg/Dextrose 103 ml @ 618 mls/hr 1X ONCE 02/01/22 16:45 02/01/22 16:54 DC 02/01/22 16:55 618 MLS/HR Amiodarone HCl 450 mg/Dextrose 259 ml @ 34.533 mls/ hr CONT PRN 02/02/22 16:45 02/03/22 11:18 DC 02/03/22 10:24 16.7 MLS/HR Ampicillin Sodium/ Sulbactam Sodium 3 gm/Dextrose 100 ml @ 200 mls/hr Q6HRS 02/03/22 12:00 02/04/22 12:09 200 MLS/HR Ampicillin Sodium/ Sulbactam Sodium 3 gm/Sodium Chloride 100 ml @ 200 mls/hr Q6HRS 02/02/22 12:00 02/02/22 18:49 DC 02/02/22 12:00 200 MLS/HR Aspirin (Aspirin Chewable) 81 mg 1X ONCE 02/02/22 11:30 02/02/22 11:32 DC 02/02/22 14:48 81 MG Atropine Sulfate (ATROPINE 0.5mg SYRINGE) 0.5 mg PRN Q5MIN PRN 02/01/22 19:15 Calcium Carbonate/ Glycine (Tums) 500 mg PRN Q3HRS PRN 02/01/22 17:30 Cefepime HCl (Maxipime) 1 gm 1X ONCE 02/01/22 18:30 02/01/22 18:31 DC 02/01/22 21:27 1 GM Chlorhexidine Gluconate (Peridex) 15 ml BID 02/01/22 21:00 02/04/22 08:29 15 ML Etomidate (Amidate) 20 mg STK-MED ONCE 02/01/22 17:38 02/01/22 17:38 DC Famotidine (Pepcid Vial) 20 mg BID 02/01/22 21:00 02/04/22 08:29 20 MG Fentanyl Citrate 30 ml @ 2.5 mls/hr CONT PRN 02/01/22 19:15 02/02/22 14:53 2.5 MLS/HR Fentanyl Citrate (Fentanyl 2ml Vial) 50 mcg PRN Q1HR PRN 02/01/22 17:30 02/02/22 08:31 DC Glycerin/ Hypromellose/ Polyethylene (Artificial Tears) 1 drop PRN Q1HR PRN 02/01/22 19:15 Heparin Sodium (Porcine) (Heparin Sodium) 3,300 unit PRN Q6HRS PRN 02/02/22 11:30 02/03/22 14:30 3,300 UNIT Heparin Sodium/ Dextrose 250 ml @ 10 mls/hr CONT PRN 02/02/22 11:30 02/04/22 00:31 19.867 MLS/HR Info (Anti-Coagulation Monitoring By Pharmacy) 1 each PRN DAILY PRN 02/03/22 09:00 02/04/22 08:37 1 EACH Info ([facility] Electrolyte Protocol) 1 ea CONT PRN PRN 02/03/22 04:15 Info (Non-[facility] Electrolyte Protocol) 1 ea PRN DAILY PRN 02/01/22 17:30 Cancel Lorazepam (Ativan Inj) 2 mg STK-MED ONCE 02/01/22 16:27 02/01/22 16:27 DC Magnesium Sulfate 50 ml @ 25 mls/hr 1X ONCE 02/02/22 04:45 02/02/22 06:44 DC 02/02/22 05:21 25 MLS/HR Metoprolol Tartrate (Lopressor) 12.5 mg BID 02/03/22 12:00 02/04/22 08:29 12.5 MG Midazolam HCl 100 ml @ 1 mls/hr CONT PRN 02/01/22 19:15 02/02/22 14:55 1 MLS/HR Midazolam HCl (Versed) 5 mg 1X ONCE 02/01/22 16:45 02/01/22 16:49 DC 02/01/22 16:51 5 MG Ondansetron HCl (Zofran) 4 mg PRN Q8HRS PRN 02/01/22 17:30 02/02/22 08:32 DC Potassium Bicarbonate (Potassium Effervescent Tablet) 40 meq 1X ONCE 02/04/22 09:30 02/04/22 09:31 DC 02/04/22 09:45 40 MEQ Potassium Chloride/Water 100 ml @ 100 mls/hr Q1H 02/02/22 09:00 02/02/22 12:59 DC 02/02/22 12:00 100 MLS/HR Senna/Docusate Sodium (Senna Plus) 1 tab BID 02/01/22 21:00 02/04/22 08:27 1 TAB Sodium Chloride 1,000 ml @ 1,000 mls/hr 1X ONCE 02/02/22 20:00 02/02/22 20:59 DC 02/02/22 20:19 1,000 MLS/HR Succinylcholine Chloride (Anectine) 200 mg STK-MED ONCE 02/01/22 17:39 02/01/22 17:39 DC Vancomycin HCl 2 gm/Sodium Chloride 500 ml @ 250 mls/hr 1X ONCE 02/01/22 18:30 02/01/22 20:29 DC 02/01/22 21:27 250 MLS/HR Vecuronium Rio (Norcuron Bolus) 6 mg PRN 1X PRN 02/01/22 19:15 02/02/22 09:18 DC ASSESSMENT & PLAN Urology will continue with observation of 7mm kidney stone. She has been afebrile over the last 2 days. Creatinine seems to be improving, now 0.9. Will avoid any emergent operations especially with anesthesia complications in her guarded condition. Pe[place] in place currently monitoring I's and O's, may remove when patients health stabilizes. Discussed with her sons that she does need to have the kidney stone managed on an outpatient basis when she has been stabilized. They voiced understanding. Please call with other urology concerns. Discussed with Dr. Perez Problem List: Problems Medical Problems: (1) Fever Status: Acute CYNTHIA PEDRAZA Feb 04, 2022 12:44
[2022-02-04] MEDS ORDERED: IODIXANOL 320 MG/ML 100 ML VIAL. ONE ×2 (13:54→14:22)
[2022-02-04] MEDS ORDERED: LIDOCAINE 1% Multi-Dose 20 ML VIAL. ONE (14:06)
[2022-02-04] MEDS ORDERED: MIDAZOLAM HCL/PF 2 MG/2 ML VIAL. ONE (14:13)
[2022-02-04] MEDS ORDERED: HEPARIN for IV BOLUS 10,000 UNIT/10 ML VIAL. ONE (14:13)
[2022-02-04] MEDS ORDERED: fentaNYL PF VIAL 100 MCG/2 ML VIAL ONE (14:13)
[2022-02-04] MEDS ORDERED: NITROGLYCERIN 200 MCG/2 ML SYRINGE FOR CATH/VASC LAB. ONE (14:13)
[2022-02-04] MEDS ORDERED: VERAPAMIL 5 MG/2 ML VIAL. ONE ×2 (14:13→14:30)
[2022-02-04] MEDS ORDERED: LIDOCAINE 1% PF 2 ML VIAL. ONE (14:18)
[2022-02-04] MEDS ORDERED: VERAPAMIL 5 MG/2 ML VIAL. IART ONE (14:30)
[2022-02-04] MEDS ORDERED: LIDOCAINE 1% Multi-Dose 20 ML VIAL. INJ ONE (14:30)
[2022-02-04] MEDS ORDERED: IODIXANOL 320 MG/ML 100 ML VIAL. IART ONE (14:30)
[2022-02-04] MEDS ORDERED: HEPARIN for IV BOLUS 10,000 UNIT/10 ML VIAL. IART ONE (14:30)
[2022-02-04] MEDS ORDERED: NITROGLYCERIN 200 MCG/2 ML SYRINGE FOR CATH/VASC LAB. IART ONE (14:30)
--- NOTE | 2022-02-04 15:27 | NUR ---
SS following up with discharge planning. SS reviewed pt chart and discussed with pt RN. Pt is currently on the vent at 40%. COVID19 negative. Pt had heart cath today. Pt on IV Ampicillin. No sedation. Not ready. SS will continue to follow for discharge planning.
--- NOTE | 2022-02-04 16:42 | CARD ---
MR#: [id number] Date of Study: 02/04/2022 Ordering Physician: CARON WALLER, Referring Physician: CARON WALLER, Tech: RT Aniceto(R) APPROVED REPORT Technologist: Yvonne Sharma RT(R) Nurse: Charmaine Castillo RN Procedure(s) performed: FLUORO TIME: 2.9 MIN DOSE: 62 GYCM2 CONTRAST: 86 MODERATE SEDATION: 0 LHC, Coronary angiography, Left ventriculogram HISTORY The patient is a 57 year-old female with a history of : Cardiac arrest. [facility] Clinical Frailty Scale [facility] Clinical Frailty Scale: Severely Frail Heart Failure Heart Failure: Yes If Yes, Newly Diagnosed: Yes If Yes, HF Type: Diastolic If Yes, NYHA Class: Class III CASE TECHNIQUE During this case, Fluoroscopy and low osmolar contrast were used for imaging. Specimen(s) Removed: N/ A Estimated Blood loss: 15 cc's. PROCEDURE NARRATIVE Clinical information: 57-year-old woman presented to the hospital in the setting of cardiac arrest. She is brought to the catheterization laboratory for evaluation of coronary disease Procedure details: After proper informed consent for the patient's family the right wrist and right groin were prepped a nd draped in usual sterile fashion. Under ultrasound guidance a 6 Lao sheath was placed in the [facility] radial artery under lidocaine anesthesia. Due to severe arterial spasm the right radial sheath w ould not withdraw appropriately. Therefore this access site was abandoned and the right radial sheat h was removed with hemostasis achieved via a Terumo radial band. There was still trivial arterial fl ow in the right radial artery and no obvious occlusion or dissection was evident upon initial placeme nt. The patient did have severely diminished right radial pulse and essentially was nonpalpable and this is likely secondary to spasm and/or arterial injury from her previous right radial access site f or a arterial line during her initial code and presentation to the ICU. Attention was then turned to the right groin and via fluoroscopic guidance a 6 Lao sheath was plac ed in the right femoral artery. Next, diagnostic angiography was then performed with a 6 Lao JL4, JR4 and pigtail catheters. At case completion the catheter was removed and hemostasis was achieved via a Angio-Seal device. Findings: Aorta 110/80 LVEDP 10 mmHg No LV to aortic pullback gradient Left ventriculogram: Global hypokinesis with a dilated cardiomyopathy and moderate LV dysfunction, EF 35 to 40% Coronary angiography: Left main is a large-caliber vessel with normal angiographic appearance LAD is a moderate caliber vessel with normal angiographic appearance Left circumflex is a moderate caliber nondominant vessel with normal angiographic appearance RCA is a moderate to large caliber vessel with normal angiographic appearance Conclusion 1. Normal left-sided filling pressures 2. Moderate LV dysfunction, EF 35 to 40% 3. No significant coronary artery disease Recommendations Aggressive Medical Therapy Signed by : Caron Waller, Electronically Approved : 02/04/2022 16:41:51
[2022-02-05] VITALS (24 sets, daily range): BP systolic 115–170; BP diastolic 69–94
[2022-02-05] MEDS: AMPICILLIN/SULBACTAM 3 GM in IV DEXTROSE 5% 100ML 100 ML IV SCH ×5 (01:10→23:58)
[2022-02-05] MEDS: SENNOSIDES/DOCUSATE 8.6/50MG TABLET. PO SCH ×2 (07:36→20:13)
[2022-02-05] MEDS: ASPIRIN CHEWABLE 81 MG TABLET. PO SCH (07:37)
[2022-02-05] MEDS: AMIODARONE HCL 200 MG TABLET. PO SCH (07:37)
[2022-02-05] MEDS: METOPROLOL TART IMMED RELEASE 25 MG TABLET. PO SCH ×2 (07:37→20:12)
[2022-02-05] MEDS: FAMOTIDINE 20 MG/2 ML VIAL IVP SCH ×2 (07:38→20:12)
[2022-02-05 08:09] LABS: BASE EXCESS ABG 4 mmol/L (-3-3); HCO3 ABG 28 mmol/L (21-28); PCO2 ABG 39 mmHg (35-46); PO2 ABG 89 mmHg (75-108); SAT O2 ABG 97 % (92-99)
[2022-02-05 08:11] LABS: FIO2 ABG 30
--- NOTE | 2022-02-05 09:27 | PDOC ---
BELEM MUNIZ DEVELOPMENT MECHANIC 02/05/22 0927: CARDIO Progress Notes Date and Time Date of Service 02/05/2022 Time of Evaluation 0940 Subjective Subjective: Other (unobtainable on MV) Vitals Vitals Vital Signs Date Time Temp Pulse Resp B/P (MAP) Pulse Ox O2 Delivery O2 Flow Rate FiO2 02/05/22 09:00 70 16 160/86 99 Ventilator 02/05/22 08:00 99.2 99.2 Weight Weight [ ] Input and Output Intake and Output Intake and Output 02/05/22 07:00 Intake Total 2098 ml Output Total 1030 ml Balance 1068 ml IV Total 471 ml Tube Feeding 1367 ml Other 260 ml Output Urine Total 1030 ml Laboratory Labs Laboratory Tests Test 02/04/22 10:45 02/05/22 08:00 Heparin Anti-Xa Act, Unfractionated 0.60 IU/mL (0.30-0.70) Sodium Level 142 mmol/L (136-145) Potassium Level 4.4 mmol/L (3.5-5.1) Chloride Level 106 mmol/L (98-107) Carbon Dioxide Level 27 mmol/L (21-32) Anion Gap 9 (6-14) Blood Urea Nitrogen 17 mg/dL (7-20) Creatinine 0.9 mg/dL (0.6-1.0) Estimated GFR (Cockcroft-Gault) 65.0 Glucose Level 109 mg/dL (70-99) Calcium Level 7.6 mg/dL (8.5-10.1) Magnesium Level 2.1 mg/dL (1.8-2.4) O2 Saturation 97 % (92-99) Arterial Blood pH 7.48 (7.35-7.45) Arterial Blood pCO2 at Patient Temp 39 mmHg (35-46) Arterial Blood pO2 at Patient Temp 89 mmHg (75-108) Arterial Blood HCO3 28 mmol/L (21-28) Arterial Blood Base Excess 4 mmol/L (-3-3) FiO2 30 Microbiology Micro Microbiology 02/01/22 Blood Culture - Preliminary, Resulted NO GROWTH AFTER 3 DAYS 02/01/22 Urine Culture - Final, Complete Physical Exam HEENT: Neck Supple W Full Motion LUNGS: Other (diminished, intubated with MV) Heart: RRR (SR) Abdomen: Other (soft, obese) Extremities: Other (1+ bilateral LE pitting edema) Neurology: other (unresponsive, off sedation) Assessment Assessment 1. Vfib/VT cardiac arrest: unclear downtime prior to resuscitation. Received 3 defibrillation, lidocaine and 3 round of epinephrine. No known cardiac history 2. Hypokalemia/hypomagnesemia: post replacement 3. Mild tranasminitis 4. DOMINIC: Cr stable 5. Encephalopathy: unresponsive. off sedation since 11 AM 02/03 6. Acute respiratory failure r/t cardiac arrest and possible aspiration: intubated with MV, pulmonary following 7. Possible sleep apnea 8. Morbid obesity 9. On home Adderall therapy 10. NICM: EF at 35-40% Recommendations 1. ASA. Continue heparin drip 2. Change to PO amiodarone. Continue BB. Replace K and Mg per trend 3. Continue pulmonary optimization 4. Await neuro input. LHC did not show any significant CAD. Possibility of significant hypoxia inducing ventricular arrhythmia. Moving forward she will need a cardiac MRI and a lifevest. Will start on HF regimen per GDMT as tolerated. 5. Lasix PRN Justicifation of Admission Dx: Justifications for Admission: Justification of Admission Dx: Yes CARON ANDREA MD 02/05/22 1721: CARDIO Progress Notes Plan Plan Patient seen and examined. Agree with above nurse practitioner note. No further need for heparinization at this time. Supportive care. Await neurologic recovery. BELEM MUNIZ APRN Feb 05, 2022 09:27 CARON ANDREA MD Feb 05, 2022 17:21
[2022-02-05 09:42] LABS: CALCIUM 8.4 mg/dL (8.5-10.1); CREATININE 0.8 mg/dL (0.6-1.0); GFR 74.5; MAGNESIUM 2.2 mg/dL (1.8-2.4); POTASSIUM 3.8 mmol/L (3.5-5.1)
--- NOTE | 2022-02-05 09:42 | PDOC ---
PULMONARY PROGRESS NOTES DATE: 02/05/22 TIME: 09:40 Subjective Patient remains on mechanical ventilation, patient has been off sedation since 02/03/2022, reflexes intact, opens eyes to painful stimulus however does not track at this time and has a upward gaze Afebrile, no overnight concerns from nursing Vitals Vital Signs Date Time Temp Pulse Resp B/P (MAP) Pulse Ox O2 Delivery O2 Flow Rate FiO2 02/05/22 09:37 75 160/86 02/05/22 09:00 16 99 Ventilator 02/05/22 08:00 99.2 99.2 Comments Remains intubated on assist control mode Lungs: Clear Cardiovascular: S1, S2 Abdomen: Soft, Non-tender, Other (Obese) Extremities: Other (1+ edema) Skin: Warm Labs Laboratory Tests Test 02/03/22 13:13 02/03/22 20:34 02/04/22 03:10 02/04/22 07:40 Heparin Anti-Xa Act, Unfractionated < 0.10 IU/mL (0.30-0.70) 0.82 IU/mL (0.30-0.70) 0.67 IU/mL (0.30-0.70) Troponin I High Sensitivity 67 ng/L (4-50) O2 Saturation 98 % (92-99) Arterial Blood pH 7.52 (7.35-7.45) Arterial Blood pCO2 at Patient Temp 30 mmHg (35-46) Arterial Blood pO2 at Patient Temp 112 mmHg (75-108) Arterial Blood HCO3 24 mmol/L (21-28) Arterial Blood Base Excess 2 mmol/L (-3-3) FiO2 40 Test 02/04/22 10:45 02/05/22 08:00 Heparin Anti-Xa Act, Unfractionated 0.60 IU/mL (0.30-0.70) Sodium Level 142 mmol/L (136-145) Potassium Level 4.4 mmol/L (3.5-5.1) Chloride Level 106 mmol/L (98-107) Carbon Dioxide Level 27 mmol/L (21-32) Anion Gap 9 (6-14) Blood Urea Nitrogen 17 mg/dL (7-20) Creatinine 0.9 mg/dL (0.6-1.0) Estimated GFR (Cockcroft-Gault) 65.0 Glucose Level 109 mg/dL (70-99) Calcium Level 7.6 mg/dL (8.5-10.1) Magnesium Level 2.1 mg/dL (1.8-2.4) O2 Saturation 97 % (92-99) Arterial Blood pH 7.48 (7.35-7.45) Arterial Blood pCO2 at Patient Temp 39 mmHg (35-46) Arterial Blood pO2 at Patient Temp 89 mmHg (75-108) Arterial Blood HCO3 28 mmol/L (21-28) Arterial Blood Base Excess 4 mmol/L (-3-3) FiO2 30 Laboratory Tests Test 02/04/22 10:45 02/05/22 08:00 Heparin Anti-Xa Act, Unfractionated 0.60 IU/mL (0.30-0.70) Sodium Level 142 mmol/L (136-145) Potassium Level 4.4 mmol/L (3.5-5.1) Chloride Level 106 mmol/L (98-107) Carbon Dioxide Level 27 mmol/L (21-32) Anion Gap 9 (6-14) Blood Urea Nitrogen 17 mg/dL (7-20) Creatinine 0.9 mg/dL (0.6-1.0) Estimated GFR (Cockcroft-Gault) 65.0 Glucose Level 109 mg/dL (70-99) Calcium Level 7.6 mg/dL (8.5-10.1) Magnesium Level 2.1 mg/dL (1.8-2.4) O2 Saturation 97 % (92-99) Arterial Blood pH 7.48 (7.35-7.45) Arterial Blood pCO2 at Patient Temp 39 mmHg (35-46) Arterial Blood pO2 at Patient Temp 89 mmHg (75-108) Arterial Blood HCO3 28 mmol/L (21-28) Arterial Blood Base Excess 4 mmol/L (-3-3) FiO2 30 Comments Chest x-ray reviewed 02/03/2022. Mild bilateral interstitial infiltrates Impression . 1. Acute hypoxic respiratory failure secondary to cardiac arrest and suspected aspiration. 2. Status post ventricular fibrillation and ventricular tachycardia cardiac arrest, requiring multiple shocks, epinephrine with return of spontaneous circulation. The duration since she was found unresponsive was probably very long and as a result, she was not considered a candidate for hypothermia. 3. Abnormal CT chest with upper lobe infiltrates and some basal atelectasis. Suspect component of aspiration. 4. Leukocytosis.--Ongoing/improved 5. Acute kidney injury.--Resolved 6. Hypokalemia. May be contributing to ventricular fibrillation and ventricular tachycardia. Improved 7. Lactic acidosis secondary to shock, now resolved. 8. Abnormal liver function tests secondary to shock liver. 9. Possible urinary tract infection./She has ureteral stone. 10. Cannot exclude anoxic encephalopathy--patient has been off sedation since 02/03/2022, concerning for anoxic injury Plan . Updated 02/05/2022 Continue current ventilatory support, ABG reviewed Continue to monitor neurology status concern for anoxic injury, patient has been off sedation since 02/03/2022, will reevaluate/reassess on Tuesday and if not any improvement in neurological status, will need family care meeting in regards to plan of care, palliative care versus proceeding with tracheostomy/PEG tube Monitor renal function/liver function--stable Follow cardiology recommendations--continue amiodarone Continue antibiotics, follow cultures Continue tube feeding for nutritional support DVT/GI prophylaxis Discussed with RN and RT and son at bedside Critical care time 30 minutes Updated 02/04/2022 Continue current ventilatory support, ABG reviewed Continue to monitor neurology status concern for anoxic injury, will monitor off sedation for 48-70 further decisions regards to plan of care Monitor renal function/liver function Follow cardiology recommendations--continue amiodarone/heparin Continue antibiotics, follow cultures DVT/GI prophylaxis Discussed with RN and RT and son at bedside Critical care time 35 minutes RECOMMENDATIONS: 1. Continue present assist control mode. Follow ABGs and make necessary adjustments. Will reduce the rate today. Wean FiO2 as well. 2. Follow-up cardiology recommendation regarding need for cardiac catheterization. Currently on amiodarone. We will need to first rule out any anoxic encephalopathy before any intervention. 3. Replace electrolytes. 4. Monitor liver function test. 5. Patient is off the Versed. Discontinue fentanyl and assess for mental status. 6. Discussed with cardiology ALGEBRAIST. 7. Continue DVT prophylaxis. 8. enteral nutrition. 9. Stress ulcer prophylaxis. 10. Replace potassium per protocol. 11. Continue Unasyn for now for possible UTI/renal stone 12. Discussed with RN and RT. Chart reviewed, imaging studies reviewed. critical care time 30 minutes MAYDA KIM MD Feb 05, 2022 09:42
[2022-02-05] MEDS ORDERED: LISINOPRIL 5 MG TABLET. PO SCH (10:00)
[2022-02-05] MEDS: ENOXAPARIN 40 MG/0.4 ML SYRINGE. SQ SCH ×2 (12:49→20:12)
--- NOTE | 2022-02-05 15:55 | PDOC ---
[employer] PROGRESS NOTE Date of Service DOS: DATE: 02/05/22 TIME: 15:54 Chief Complaint Chief Complaint Acute hypoxic respiratory failure , possible aspiration probable anoxic brain injury Vfib/VTach cardiac arrest in field, Hypokalemia/hypomagnesemia acute renal failure concern for brain injury with arrest, better today , still sluggish, upward gaze, no meaningful following Morbid obesity, BMI 46 History of Present Illness History of Present Illness cont care in ICU, on vent Pulmonary discussed with me e-lyte management, ICU protocol ordered lighten sedation as able, poor reflexes currently cont the antibiotics CV consuted started on heparin drip amiodarone drip. ICU care to cont he oldest son was here this AM and I discussed above concerns Vitals/I&O Vitals/I&O: Vital Signs Date Time Temp Pulse Resp B/P (MAP) Pulse Ox O2 Delivery O2 Flow Rate FiO2 02/05/22 15:10 98 Ventilator 02/05/22 15:00 80 18 131/72 02/05/22 12:00 98.5 98.5 I & O 02/04/22 02/04/22 02/05/22 15:00 23:00 07:00 Intake Total 380 ml 986 ml 732 ml Output Total 280 ml 410 ml 340 ml Balance 100 ml 576 ml 392 ml Physical Exam General: Other (sedated) Heart: Regular rate (SR with PVCs), Other (distant heart sounds) Lungs: Clear Abdomen: Soft, Other (obese) Extremities: No cyanosis, Other (trace LE ) Skin: No breakdown Labs Labs: Laboratory Tests Test 02/05/22 08:00 02/05/22 09:00 O2 Saturation 97 % (92-99) Arterial Blood pH 7.48 (7.35-7.45) Arterial Blood pCO2 at Patient Temp 39 mmHg (35-46) Arterial Blood pO2 at Patient Temp 89 mmHg (75-108) Arterial Blood HCO3 28 mmol/L (21-28) Arterial Blood Base Excess 4 mmol/L (-3-3) FiO2 30 Sodium Level 138 mmol/L (136-145) Potassium Level 3.8 mmol/L (3.5-5.1) Chloride Level 104 mmol/L (98-107) Carbon Dioxide Level 28 mmol/L (21-32) Anion Gap 6 (6-14) Blood Urea Nitrogen 17 mg/dL (7-20) Creatinine 0.8 mg/dL (0.6-1.0) Estimated GFR (Cockcroft-Gault) 74.5 Glucose Level 119 mg/dL (70-99) Calcium Level 8.4 mg/dL (8.5-10.1) Magnesium Level 2.2 mg/dL (1.8-2.4) Assessment and Plan Assessmemt and Plan Problems Medical Problems: (1) Fever Status: Acute Comment Review of Relevant I have reviewed the following items alf (where applicable) has been applied. Medications: Current Medications Medications (Trade) Dose Ordered Sig/Katia Route PRN Reason Start Time Stop Time Status Last Admin Dose Admin Lisinopril (Prinivil) 5 mg DAILY PO 02/05/22 10:00 02/05/22 10:10 DC 02/05/22 09:37 Enoxaparin Sodium (Lovenox 40mg Syringe) 40 mg Q12HR SQ 02/05/22 11:30 02/05/22 12:49 Justifications for Admission Other Justification SILVIANO SIMMS MD Feb 05, 2022 15:55
[2022-02-06] VITALS (22 sets, daily range): BP systolic 127–183; BP diastolic 73–105
[2022-02-06] MEDS: AMPICILLIN/SULBACTAM 3 GM in IV DEXTROSE 5% 100ML 100 ML IV SCH ×3 (05:24→19:07)
[2022-02-06 05:50] LABS: BASO % 1 % (0-3); EOS # 0.1 x10^3/uL (0.0-0.7); EOS % 1 % (0-3); HEMATOCRIT 32.8 % (36.0-47.0); HEMOGLOBIN 10.9 g/dL (12.0-15.5); LYMPH # 1.8 x10^3/uL (1.0-4.8); LYMPH % 18 % (24-48); MEAN CORPUSCULAR HEMOGLOBIN 30 pg (25-35); MEAN CORPUSCULAR HGB CONC 33 g/dL (31-37); MEAN CORPUSCULAR VOLUME 90 fL (79-100); MONO # 1.2 x10^3/uL (0.0-1.1); MONO % 12 % (0-9); NEUT # 6.9 x10^3/uL (1.8-7.7); NEUT % 69 % (31-73); PLATELET COUNT 300 x10^3/uL (140-400); RED BLOOD COUNT 3.66 x10^6/uL (3.50-5.40); RED CELL DISTRIBUTION WIDTH 14.5 % (11.5-14.5)
[2022-02-06 06:05] LABS: ALBUMIN 2.3 g/dL (3.4-5.0); ALBUMIN/GLOBULIN RATIO 0.5 (1.0-1.7); CALCIUM 8.3 mg/dL (8.5-10.1); CREATININE 0.8 mg/dL (0.6-1.0); GFR 74.5; POTASSIUM 3.6 mmol/L (3.5-5.1); TOTAL BILIRUBIN 0.4 mg/dL (0.2-1.0); TOTAL PROTEIN 6.5 g/dL (6.4-8.2)
[2022-02-06 07:45] LABS: BASE EXCESS ABG 5 mmol/L (-3-3); HCO3 ABG 28 mmol/L (21-28); PCO2 ABG 36 mmHg (35-46); PO2 ABG 83 mmHg (75-108); SAT O2 ABG 96 % (92-99)
[2022-02-06 08:02] LABS: FIO2 ABG 30% VENT
--- NOTE | 2022-02-06 09:43 | PDOC ---
PULMONARY PROGRESS NOTES DATE: 02/06/22 TIME: 09:34 Subjective Patient remains on mechanical ventilation, patient has been off sedation since 02/03/2022, reflexes intact, opens eyes to painful stimulus however does not track low grade fever overnight Vitals Vital Signs Date Time Temp Pulse Resp B/P (MAP) Pulse Ox O2 Delivery O2 Flow Rate FiO2 02/06/22 09:27 97 Ventilator 02/06/22 06:00 86 24 164/91 02/06/22 04:00 99.0 99.0 Comments Remains intubated on assist control mode Lungs: Clear Cardiovascular: S1, S2 Abdomen: Soft, Non-tender, Other (Obese) Extremities: Other (1+ edema) Skin: Warm Labs Laboratory Tests Test 02/04/22 10:45 02/05/22 08:00 02/05/22 09:00 02/06/22 05:30 Heparin Anti-Xa Act, Unfractionated 0.60 IU/mL (0.30-0.70) Sodium Level 142 mmol/L (136-145) 138 mmol/L (136-145) 140 mmol/L (136-145) Potassium Level 4.4 mmol/L (3.5-5.1) 3.8 mmol/L (3.5-5.1) 3.6 mmol/L (3.5-5.1) Chloride Level 106 mmol/L (98-107) 104 mmol/L (98-107) 105 mmol/L (98-107) Carbon Dioxide Level 27 mmol/L (21-32) 28 mmol/L (21-32) 29 mmol/L (21-32) Anion Gap 9 (6-14) 6 (6-14) 6 (6-14) Blood Urea Nitrogen 17 mg/dL (7-20) 17 mg/dL (7-20) 15 mg/dL (7-20) Creatinine 0.9 mg/dL (0.6-1.0) 0.8 mg/dL (0.6-1.0) 0.8 mg/dL (0.6-1.0) Estimated GFR (Cockcroft-Gault) 65.0 74.5 74.5 Glucose Level 109 mg/dL (70-99) 119 mg/dL (70-99) 119 mg/dL (70-99) Calcium Level 7.6 mg/dL (8.5-10.1) 8.4 mg/dL (8.5-10.1) 8.3 mg/dL (8.5-10.1) Magnesium Level 2.1 mg/dL (1.8-2.4) 2.2 mg/dL (1.8-2.4) O2 Saturation 97 % (92-99) Arterial Blood pH 7.48 (7.35-7.45) Arterial Blood pCO2 at Patient Temp 39 mmHg (35-46) Arterial Blood pO2 at Patient Temp 89 mmHg (75-108) Arterial Blood HCO3 28 mmol/L (21-28) Arterial Blood Base Excess 4 mmol/L (-3-3) FiO2 30 White Blood Count 10.0 x10^3/uL (4.0-11.0) Red Blood Count 3.66 x10^6/uL (3.50-5.40) Hemoglobin 10.9 g/dL (12.0-15.5) Hematocrit 32.8 % (36.0-47.0) Mean Corpuscular Volume 90 fL (79-100) Mean Corpuscular Hemoglobin 30 pg (25-35) Mean Corpuscular Hemoglobin Concent 33 g/dL (31-37) Red Cell Distribution Width 14.5 % (11.5-14.5) Platelet Count 300 x10^3/uL (140-400) Neutrophils (%) (Auto) 69 % (31-73) Lymphocytes (%) (Auto) 18 % (24-48) Monocytes (%) (Auto) 12 % (0-9) Eosinophils (%) (Auto) 1 % (0-3) Basophils (%) (Auto) 1 % (0-3) Neutrophils # (Auto) 6.9 x10^3/uL (1.8-7.7) Lymphocytes # (Auto) 1.8 x10^3/uL (1.0-4.8) Monocytes # (Auto) 1.2 x10^3/uL (0.0-1.1) Eosinophils # (Auto) 0.1 x10^3/uL (0.0-0.7) Basophils # (Auto) 0.0 x10^3/uL (0.0-0.2) BUN/Creatinine Ratio 19 (6-20) Total Bilirubin 0.4 mg/dL (0.2-1.0) Aspartate Amino Transf (AST/SGOT) 115 U/L (15-37) Alanine Aminotransferase (ALT/SGPT) 114 U/L (14-59) Alkaline Phosphatase 192 U/L (46-116) Total Protein 6.5 g/dL (6.4-8.2) Albumin 2.3 g/dL (3.4-5.0) Albumin/Globulin Ratio 0.5 (1.0-1.7) Test 02/06/22 07:44 O2 Saturation 96 % (92-99) Arterial Blood pH 7.51 (7.35-7.45) Arterial Blood pCO2 at Patient Temp 36 mmHg (35-46) Arterial Blood pO2 at Patient Temp 83 mmHg (75-108) Arterial Blood HCO3 28 mmol/L (21-28) Arterial Blood Base Excess 5 mmol/L (-3-3) FiO2 30% vent Laboratory Tests Test 02/06/22 05:30 02/06/22 07:44 White Blood Count 10.0 x10^3/uL (4.0-11.0) Red Blood Count 3.66 x10^6/uL (3.50-5.40) Hemoglobin 10.9 g/dL (12.0-15.5) Hematocrit 32.8 % (36.0-47.0) Mean Corpuscular Volume 90 fL (79-100) Mean Corpuscular Hemoglobin 30 pg (25-35) Mean Corpuscular Hemoglobin Concent 33 g/dL (31-37) Red Cell Distribution Width 14.5 % (11.5-14.5) Platelet Count 300 x10^3/uL (140-400) Neutrophils (%) (Auto) 69 % (31-73) Lymphocytes (%) (Auto) 18 % (24-48) Monocytes (%) (Auto) 12 % (0-9) Eosinophils (%) (Auto) 1 % (0-3) Basophils (%) (Auto) 1 % (0-3) Neutrophils # (Auto) 6.9 x10^3/uL (1.8-7.7) Lymphocytes # (Auto) 1.8 x10^3/uL (1.0-4.8) Monocytes # (Auto) 1.2 x10^3/uL (0.0-1.1) Eosinophils # (Auto) 0.1 x10^3/uL (0.0-0.7) Basophils # (Auto) 0.0 x10^3/uL (0.0-0.2) Sodium Level 140 mmol/L (136-145) Potassium Level 3.6 mmol/L (3.5-5.1) Chloride Level 105 mmol/L (98-107) Carbon Dioxide Level 29 mmol/L (21-32) Anion Gap 6 (6-14) Blood Urea Nitrogen 15 mg/dL (7-20) Creatinine 0.8 mg/dL (0.6-1.0) Estimated GFR (Cockcroft-Gault) 74.5 BUN/Creatinine Ratio 19 (6-20) Glucose Level 119 mg/dL (70-99) Calcium Level 8.3 mg/dL (8.5-10.1) Total Bilirubin 0.4 mg/dL (0.2-1.0) Aspartate Amino Transf (AST/SGOT) 115 U/L (15-37) Alanine Aminotransferase (ALT/SGPT) 114 U/L (14-59) Alkaline Phosphatase 192 U/L (46-116) Total Protein 6.5 g/dL (6.4-8.2) Albumin 2.3 g/dL (3.4-5.0) Albumin/Globulin Ratio 0.5 (1.0-1.7) O2 Saturation 96 % (92-99) Arterial Blood pH 7.51 (7.35-7.45) Arterial Blood pCO2 at Patient Temp 36 mmHg (35-46) Arterial Blood pO2 at Patient Temp 83 mmHg (75-108) Arterial Blood HCO3 28 mmol/L (21-28) Arterial Blood Base Excess 5 mmol/L (-3-3) FiO2 30% vent Comments Chest x-ray reviewed 02/03/2022. Mild bilateral interstitial infiltrates Impression . 1. Acute hypoxic respiratory failure secondary to cardiac arrest and suspected aspiration. 2. Status post ventricular fibrillation and ventricular tachycardia cardiac arrest, requiring multiple shocks, epinephrine with return of spontaneous circulation. The duration since she was found unresponsive was probably very long and as a result, she was not considered a candidate for hypothermia. 3. Abnormal CT chest with upper lobe infiltrates and some basal atelectasis. Suspect component of aspiration. 4. Leukocytosis.--Ongoing/improved 5. Acute kidney injury.--Resolved 6. Hypokalemia. May be contributing to ventricular fibrillation and ventricular tachycardia. Improved 7. Lactic acidosis secondary to shock, now resolved. 8. Abnormal liver function tests secondary to shock liver. 9. Possible urinary tract infection./She has ureteral stone. 10. Cannot exclude anoxic encephalopathy--patient has been off sedation since 02/03/2022, concerning for anoxic injury Plan . Updated 02/06/2022 Continue current ventilatory support, ABG reviewed Logical exam unchanged, flexes intact, does not track, concerning upward gaze Continue to monitor neurology status concern for anoxic injury, patient has been off sedation since 02/03/2022, will reevaluate/reassess on Tuesday and if not any improvement in neurological status, will need family care meeting in regards to plan of care, palliative care versus proceeding with tracheostomy/PEG tube Monitor renal function/liver function--ongoing transaminitis, stable renal function Follow cardiology recommendations--continue amiodarone Continue antibiotics, follow cultures Continue tube feeding for nutritional support DVT/GI prophylaxis Discussed with RN and RT and daughter at bedside Critical care time 30 minutes Updated 02/05/2022 Continue current ventilatory support, ABG reviewed Continue to monitor neurology status concern for anoxic injury, patient has been off sedation since 02/03/2022, will reevaluate/reassess on Tuesday and if not any improvement in neurological status, will need family care meeting in regards to plan of care, palliative care versus proceeding with tracheostomy/PEG tube Monitor renal function/liver function--stable Follow cardiology recommendations--continue amiodarone Continue antibiotics, follow cultures Continue tube feeding for nutritional support DVT/GI prophylaxis Discussed with RN and RT and son at bedside Critical care time 30 minutes Updated 02/04/2022 Continue current ventilatory support, ABG reviewed Continue to monitor neurology status concern for anoxic injury, will monitor off sedation for 48-70 further decisions regards to plan of care Monitor renal function/liver function Follow cardiology recommendations--continue amiodarone/heparin Continue antibiotics, follow cultures DVT/GI prophylaxis Discussed with RN and RT and son at bedside Critical care time 35 minutes MAYDA KIM MD Feb 06, 2022 09:42
--- NOTE | 2022-02-06 10:04 | PDOC ---
PROGRESS NOTE DATE OF SERVICE: DATE: 02/06/22 TIME: 10:02 CHIEF COMPLAINT: ASHLEY SUBJECTIVE: HPI: Patient continues to be on the ventilator in the ICU. Per nursing, they have weaned off sedation to further evaluate neuro status. Problems: Problems Medical Problems: (1) Fever Status: Acute OBJECTIVE: Vital Signs: Vital Signs Date Time Temp Pulse Resp B/P (MAP) Pulse Ox O2 Delivery O2 Flow Rate FiO2 02/06/22 09:27 97 Ventilator 02/06/22 07:36 98 Ventilator 02/06/22 06:00 86 24 164/91 99 Ventilator 02/06/22 05:00 76 15 161/92 98 Ventilator 02/06/22 05:00 97 Ventilator 02/06/22 04:00 Mechanical Ventilator 02/06/22 04:00 99.0 78 18 173/94 98 Ventilator 99.0 02/06/22 03:00 78 19 159/91 98 Ventilator 02/06/22 02:00 78 17 147/74 97 Ventilator 02/06/22 01:55 98 Ventilator 02/06/22 01:00 78 18 142/77 97 Ventilator 02/06/22 00:00 Mechanical Ventilator 02/06/22 00:00 98.9 74 18 153/73 98 Ventilator 98.9 02/06/22 00:00 98 Ventilator 02/05/22 23:00 74 19 155/75 100 Ventilator 02/05/22 22:00 74 18 156/89 100 Ventilator 02/05/22 22:00 99 Ventilator 02/05/22 21:00 86 18 157/86 100 Ventilator 02/05/22 20:12 87 159/84 02/05/22 20:08 Mechanical Ventilator 02/05/22 20:00 98.9 84 17 159/84 100 Ventilator 98.9 02/05/22 20:00 98 Ventilator 02/05/22 19:00 84 19 157/86 100 Ventilator 02/05/22 18:00 86 18 159/83 100 Ventilator 02/05/22 17:15 98 Ventilator 02/05/22 17:00 83 16 145/87 100 Ventilator 02/05/22 16:00 84 16 138/78 100 Ventilator 02/05/22 16:00 Mechanical Ventilator 02/05/22 15:10 98 Ventilator 02/05/22 15:00 80 18 131/72 100 Ventilator 02/05/22 14:00 80 16 142/73 100 Ventilator 02/05/22 13:00 80 17 157/80 100 Ventilator 02/05/22 13:00 100 Ventilator 02/05/22 12:00 98.5 79 16 151/80 99 Ventilator 98.5 02/05/22 12:00 Mechanical Ventilator 02/05/22 11:15 98 Ventilator 02/05/22 11:00 80 17 166/87 99 Ventilator I & O Intake and Output 02/06/22 07:00 Intake Total 2123 ml Output Total 2360 ml Balance -237 ml IV Total 200 ml Tube Feeding 1623 ml Other 300 ml Output Urine Total 2360 ml Gastric Drainage Total 0 ml # Bowel Movements 3 PHYSICAL EXAM: Physical Exam: General: No acute distress Eyes: conjunctiva anicteric, eyes full range of motion ENT: moist oral mucosa, normal dentition Neck: Trachea midline, no masses Respiratory: unlabored breathing, not using accessory muscles, no crackles or wheezes. on vent Abdomen: nontender, nondistended, no hepatosplenomegaly, no masses Skin: no rashes or skin lesions on visualized skin Psych: ASHLEY : strong catheter with clear yellow urine LABS: Laboratory Tests Test 02/03/22 13:13 02/03/22 20:34 02/04/22 03:10 02/04/22 07:40 Heparin Anti-Xa Act, Unfractionated < 0.10 IU/mL (0.30-0.70) 0.82 IU/mL (0.30-0.70) 0.67 IU/mL (0.30-0.70) Troponin I High Sensitivity 67 ng/L (4-50) O2 Saturation 98 % (92-99) Arterial Blood pH 7.52 (7.35-7.45) Arterial Blood pCO2 at Patient Temp 30 mmHg (35-46) Arterial Blood pO2 at Patient Temp 112 mmHg (75-108) Arterial Blood HCO3 24 mmol/L (21-28) Arterial Blood Base Excess 2 mmol/L (-3-3) FiO2 40 Test 02/04/22 10:45 02/05/22 08:00 02/05/22 09:00 02/06/22 05:30 Heparin Anti-Xa Act, Unfractionated 0.60 IU/mL (0.30-0.70) Sodium Level 142 mmol/L (136-145) 138 mmol/L (136-145) 140 mmol/L (136-145) Potassium Level 4.4 mmol/L (3.5-5.1) 3.8 mmol/L (3.5-5.1) 3.6 mmol/L (3.5-5.1) Chloride Level 106 mmol/L (98-107) 104 mmol/L (98-107) 105 mmol/L (98-107) Carbon Dioxide Level 27 mmol/L (21-32) 28 mmol/L (21-32) 29 mmol/L (21-32) Anion Gap 9 (6-14) 6 (6-14) 6 (6-14) Blood Urea Nitrogen 17 mg/dL (7-20) 17 mg/dL (7-20) 15 mg/dL (7-20) Creatinine 0.9 mg/dL (0.6-1.0) 0.8 mg/dL (0.6-1.0) 0.8 mg/dL (0.6-1.0) Estimated GFR (Cockcroft-Gault) 65.0 74.5 74.5 Glucose Level 109 mg/dL (70-99) 119 mg/dL (70-99) 119 mg/dL (70-99) Calcium Level 7.6 mg/dL (8.5-10.1) 8.4 mg/dL (8.5-10.1) 8.3 mg/dL (8.5-10.1) Magnesium Level 2.1 mg/dL (1.8-2.4) 2.2 mg/dL (1.8-2.4) O2 Saturation 97 % (92-99) Arterial Blood pH 7.48 (7.35-7.45) Arterial Blood pCO2 at Patient Temp 39 mmHg (35-46) Arterial Blood pO2 at Patient Temp 89 mmHg (75-108) Arterial Blood HCO3 28 mmol/L (21-28) Arterial Blood Base Excess 4 mmol/L (-3-3) FiO2 30 White Blood Count 10.0 x10^3/uL (4.0-11.0) Red Blood Count 3.66 x10^6/uL (3.50-5.40) Hemoglobin 10.9 g/dL (12.0-15.5) Hematocrit 32.8 % (36.0-47.0) Mean Corpuscular Volume 90 fL (79-100) Mean Corpuscular Hemoglobin 30 pg (25-35) Mean Corpuscular Hemoglobin Concent 33 g/dL (31-37) Red Cell Distribution Width 14.5 % (11.5-14.5) Platelet Count 300 x10^3/uL (140-400) Neutrophils (%) (Auto) 69 % (31-73) Lymphocytes (%) (Auto) 18 % (24-48) Monocytes (%) (Auto) 12 % (0-9) Eosinophils (%) (Auto) 1 % (0-3) Basophils (%) (Auto) 1 % (0-3) Neutrophils # (Auto) 6.9 x10^3/uL (1.8-7.7) Lymphocytes # (Auto) 1.8 x10^3/uL (1.0-4.8) Monocytes # (Auto) 1.2 x10^3/uL (0.0-1.1) Eosinophils # (Auto) 0.1 x10^3/uL (0.0-0.7) Basophils # (Auto) 0.0 x10^3/uL (0.0-0.2) BUN/Creatinine Ratio 19 (6-20) Total Bilirubin 0.4 mg/dL (0.2-1.0) Aspartate Amino Transf (AST/SGOT) 115 U/L (15-37) Alanine Aminotransferase (ALT/SGPT) 114 U/L (14-59) Alkaline Phosphatase 192 U/L (46-116) Total Protein 6.5 g/dL (6.4-8.2) Albumin 2.3 g/dL (3.4-5.0) Albumin/Globulin Ratio 0.5 (1.0-1.7) Test 02/06/22 07:44 O2 Saturation 96 % (92-99) Arterial Blood pH 7.51 (7.35-7.45) Arterial Blood pCO2 at Patient Temp 36 mmHg (35-46) Arterial Blood pO2 at Patient Temp 83 mmHg (75-108) Arterial Blood HCO3 28 mmol/L (21-28) Arterial Blood Base Excess 5 mmol/L (-3-3) FiO2 30% vent Microbiology 02/01/22 Blood Culture - Preliminary, Resulted NO GROWTH AFTER 4 DAYS 02/01/22 Urine Culture - Final, Complete MEDICATIONS: Current Medications Medications (Trade) Dose Ordered Sig/Katia Start Time Stop Time Status Last Admin Dose Admin Acetaminophen (Tylenol Supp) 650 mg 1X ONCE 02/01/22 16:45 02/01/22 16:46 DC 02/01/22 17:08 650 MG Acetaminophen (Tylenol) 650 mg PRN Q4HRS PRN 02/01/22 17:30 02/02/22 08:30 DC Amiodarone HCl (Cordarone) 400 mg DAILY 02/04/22 09:00 02/05/22 07:37 400 MG Amiodarone HCl 150 mg/Dextrose 103 ml @ 618 mls/hr 1X ONCE 02/01/22 16:45 02/01/22 16:54 DC 02/01/22 16:55 618 MLS/HR Amiodarone HCl 450 mg/Dextrose 259 ml @ 34.533 mls/ hr CONT PRN 02/02/22 16:45 02/03/22 11:18 DC 02/03/22 10:24 16.7 MLS/HR Ampicillin Sodium/ Sulbactam Sodium 3 gm/Dextrose 100 ml @ 200 mls/hr Q6HRS 02/03/22 12:00 02/06/22 05:24 200 MLS/HR Ampicillin Sodium/ Sulbactam Sodium 3 gm/Sodium Chloride 100 ml @ 200 mls/hr Q6HRS 02/02/22 12:00 02/02/22 18:49 DC 02/02/22 12:00 200 MLS/HR Aspirin (Aspirin Chewable) 81 mg 1X ONCE 02/02/22 11:30 02/02/22 11:32 DC 02/02/22 14:48 81 MG Atropine Sulfate (ATROPINE 0.5mg SYRINGE) 0.5 mg PRN Q5MIN PRN 02/01/22 19:15 Calcium Carbonate/ Glycine (Tums) 500 mg PRN Q3HRS PRN 02/01/22 17:30 Cefepime HCl (Maxipime) 1 gm 1X ONCE 02/01/22 18:30 02/01/22 18:31 DC 02/01/22 21:27 1 GM Chlorhexidine Gluconate (Peridex) 15 ml BID 02/01/22 21:00 02/05/22 07:18 DC 02/04/22 20:27 15 ML Enoxaparin Sodium (Lovenox 40mg Syringe) 40 mg Q12HR 02/05/22 11:30 02/05/22 20:12 40 MG Etomidate (Amidate) 20 mg STK-MED ONCE 02/01/22 17:38 02/01/22 17:38 DC Famotidine (Pepcid Vial) 20 mg BID 02/01/22 21:00 02/05/22 20:12 20 MG Fentanyl Citrate (Fentanyl 2ml Vial) 100 mcg STK-MED ONCE 02/04/22 14:13 02/04/22 14:14 DC Glycerin/ Hypromellose/ Polyethylene (Artificial Tears) 1 drop PRN Q1HR PRN 02/01/22 19:15 Heparin Sodium (Porcine) (Heparin Sodium) 2,500 unit 1X ONCE 02/04/22 14:30 02/04/22 14:40 DC Heparin Sodium/ Dextrose 250 ml @ 10 mls/hr CONT PRN 02/02/22 11:30 02/04/22 15:47 DC 02/04/22 00:31 19.867 MLS/HR Heparin Sodium/ Sodium Chloride (HEPARIN for ARTERIAL LINE FLUSH) 1,000 unit 1X ONCE 02/04/22 14:30 02/04/22 14:40 DC 02/04/22 14:30 1,000 UNIT Info (Anti-Coagulation Monitoring By Pharmacy) 1 each PRN DAILY PRN 02/03/22 09:00 02/04/22 15:48 DC 02/04/22 08:37 1 EACH Info (Icu Electrolyte Protocol) 1 ea CONT PRN PRN 02/03/22 04:15 Info (Non-Icu Electrolyte Protocol) 1 ea PRN DAILY PRN 02/01/22 17:30 Cancel Iodixanol (Visipaque 320) 100 ml 1X ONCE 02/04/22 14:30 02/04/22 14:40 DC 02/04/22 14:50 86 ML Lidocaine HCl (Lidocaine 1% 20ml Vial) 20 ml 1X ONCE 02/04/22 14:30 02/04/22 14:40 DC Lidocaine HCl (Xylocaine-Mpf 1% 2ml Vial) 2 ml STK-MED ONCE 02/04/22 14:18 02/04/22 14:18 DC Lisinopril (Prinivil) 5 mg DAILY 02/05/22 10:00 02/05/22 10:10 DC 02/05/22 09:37 5 MG Lorazepam (Ativan Inj) 2 mg STK-MED ONCE 02/01/22 16:27 02/01/22 16:27 DC Magnesium Sulfate 50 ml @ 25 mls/hr 1X ONCE 02/02/22 04:45 02/02/22 06:44 DC 02/02/22 05:21 25 MLS/HR Metoprolol Tartrate (Lopressor) 25 mg BID 02/05/22 21:00 02/05/22 20:12 25 MG Midazolam HCl (Versed) 2 mg STK-MED ONCE 02/04/22 14:13 02/04/22 14:13 DC Nitroglycerin (Nitroglycerin) 200 mcg 1X ONCE 02/04/22 14:30 02/04/22 14:40 DC Ondansetron HCl (Zofran) 4 mg PRN Q8HRS PRN 02/01/22 17:30 02/02/22 08:32 DC Potassium Bicarbonate (Potassium Effervescent Tablet) 40 meq 1X ONCE 02/04/22 09:30 02/04/22 09:31 DC 02/04/22 09:45 40 MEQ Potassium Chloride/Water 100 ml @ 100 mls/hr Q1H 02/02/22 09:00 02/02/22 12:59 DC 02/02/22 12:00 100 MLS/HR Sacubitril/ Valsartan (Entresto 24 Mg-26 Mg) 1 tab BID 02/06/22 09:00 Senna/Docusate Sodium (Senna Plus) 1 tab BID 02/01/22 21:00 02/05/22 07:36 1 TAB Sodium Chloride 1,000 ml @ 1,000 mls/hr 1X ONCE 02/02/22 20:00 02/02/22 20:59 DC 02/02/22 20:19 1,000 MLS/HR Succinylcholine Chloride (Anectine) 200 mg STK-MED ONCE 02/01/22 17:39 02/01/22 17:39 DC Vancomycin HCl 2 gm/Sodium Chloride 500 ml @ 250 mls/hr 1X ONCE 02/01/22 18:30 02/01/22 20:29 DC 02/01/22 21:27 250 MLS/HR Vecuronium [place] (Norcuron Bolus) 6 mg PRN 1X PRN 02/01/22 19:15 02/02/22 09:18 DC Verapamil HCl (Verapamil) 5 mg STK-MED ONCE 02/04/22 14:30 02/05/22 08:30 DC ASSESSMENT & PLAN Urology will continue with observation of 7mm kidney stone. She has been afebrile with WBC trending down. Creatinine stable. Will avoid any emergent operations especially with anesthesia complications in her guarded condition. Strong in place currently monitoring I's and O's, may remove when patients health stabilizes. Stone can be managed on outpatient basis. Please call with other urology concerns. Problem List: Problems Medical Problems: (1) Fever Status: Acute GARTH MOTA APRN Feb 06, 2022 10:04
[2022-02-06] MEDS: FAMOTIDINE 20 MG/2 ML VIAL IVP SCH ×2 (10:14→20:30)
[2022-02-06] MEDS: AMIODARONE HCL 200 MG TABLET. PO SCH (10:15)
[2022-02-06] MEDS: METOPROLOL TART IMMED RELEASE 25 MG TABLET. PO SCH ×2 (10:15→20:31)
[2022-02-06] MEDS: SACUBITRIL/VALSARTAN 24/26MG TABLET. PO SCH ×2 (10:16→20:30)
[2022-02-06] MEDS: ASPIRIN CHEWABLE 81 MG TABLET. PO SCH (10:16)
[2022-02-06] MEDS: SENNOSIDES/DOCUSATE 8.6/50MG TABLET. PO SCH ×2 (10:16→20:32)
[2022-02-06] MEDS: ENOXAPARIN 40 MG/0.4 ML SYRINGE. SQ SCH ×2 (10:16→20:31)
--- NOTE | 2022-02-06 12:42 | PDOC2 ---
CONSULT Date of Consult Date of Consult Neurology Consultation DATE: 02/06/22 TIME: 12:28 History of Present Illness Reason for Visit: Jo Sweet is a 57-year-old woman admitted to [facility] via EMS on February 01, 2022. She had a cardiopulmonary arrest at home. When EMS arrived she was found to be in ventricular fibrillation. She had 3 rounds of defibrillation, epinephrine as well as some lidocaine. She converted to ventricular tachycardia and then spontaneously to normal sinus rhythm. She has never had cardiac disease that has been known. She had been living in [place] and relocated to this region to help her youngest daughter with her first child. She had been staying with different family members for the last few months. Her son was at bedside and provided some valuable history. He notes that she had a respiratory infection which may have been Covid a few months ago. She was never tested. She is unvaccinated against Covid 19. Past Medical History Past Medical History Family does not report her having any history of coronary artery disease or pulmonary infection. She had been having some cold symptoms for the day or so prior to her presentation. Psych: Other (ADHD? on aderrall) Family History Family History Unknown Family History: Family History Unknown Social History Lives: with Family Current Problem List Problem List Problems Medical Problems: (1) Fever Status: Acute Current Medications Current Medications Current Medications Fentanyl Citrate (Fentanyl 2ml Vial) 100 mcg STK-MED ONCE .ROUTE ; Start 02/01/22 at 16:27; Stop 02/01/22 at 16:27; Status DC Lorazepam (Ativan Inj) 2 mg STK-MED ONCE .ROUTE ; Start 02/01/22 at 16:27; Stop 02/01/22 at 16:27; Status DC Acetaminophen (Tylenol Supp) 650 mg 1X ONCE TX Last administered on 02/01/22at 17:08; Start 02/01/22 at 16:45; Stop 02/01/22 at 16:46; Status DC Amiodarone HCl 150 mg/Dextrose 103 ml @ 618 mls/hr 1X ONCE IV Last administered on 02/01/22at 16:55; Start 02/01/22 at 16:45; Stop 02/01/22 at 16:54; Status DC Amiodarone HCl 450 mg/Dextrose 259 ml @ 34.533 mls/ hr CONT PRN IV SEE I/O RECORD Last administered on 02/02/22at 00:46; Start 02/01/22 at 16:45; Stop 02/02/22 at 16:35; Status DC Fentanyl Citrate (Fentanyl 2ml Vial) 100 mcg 1X ONCE IVP Last administered on 02/01/22at 16:52; Start 02/01/22 at 16:45; Stop 02/01/22 at 16:49; Status DC Midazolam HCl 100 ml @ 0 mls/hr 1X ONCE IV ; Start 02/01/22 at 16:45; Stop 02/01/22 at 16:46; Status UNV Midazolam HCl (Versed) 5 mg 1X ONCE NS Last administered on 02/01/22at 16:51; Start 02/01/22 at 16:45; Stop 02/01/22 at 16:49; Status DC Midazolam HCl 100 ml @ 1 mls/hr 1X ONCE IV Last administered on 02/01/22at 17:29; Start 02/01/22 at 17:00; Stop 02/02/22 at 08:31; Status DC Ondansetron HCl (Zofran) 4 mg PRN Q6HRS PRN IVP NAUSEA/VOMITING; Start 02/01/22 at 17:30 Calcium Carbonate/ Glycine (Tums) 500 mg PRN Q3HRS PRN PO UPSET STOMACH; Start 02/01/22 at 17:30 Info (Non-Icu Electrolyte Protocol) 1 ea PRN DAILY PRN MC SEE COMMENTS; Start 02/01/22 at 17:30; Status Cancel Acetaminophen (Tylenol) 650 mg PRN Q6HRS PRN PO Headaches, Temp > 101.5F Last administered on 02/02/22at 05:23; Start 02/01/22 at 17:30 Senna/Docusate Sodium (Senna Plus) 1 tab BID PO Last administered on 02/06/22at 10:16; Start 02/01/22 at 21:00 Heparin Sodium (Porcine) (Heparin Sodium) 5,000 unit Q8HRS SQ Last administered on 02/02/22at 06:23; Start 02/01/22 at 22:00; Stop 02/02/22 at 11:31; Status DC Ondansetron HCl (Zofran) 4 mg PRN Q8HRS PRN IVP NAUSEA/VOMITING; Start 02/01/22 at 17:30; Stop 02/02/22 at 08:32; Status DC Fentanyl Citrate (Fentanyl 2ml Vial) 50 mcg PRN Q1HR PRN IVP PAIN; Start 02/01/22 at 17:30; Stop 02/02/22 at 08:31; Status DC Sodium Chloride 1,000 ml @ 100 mls/hr Q10H IV Last administered on 02/02/22at 13:30; Start 02/01/22 at 17:30; Stop 02/02/22 at 17:29; Status DC Acetaminophen (Tylenol) 650 mg PRN Q4HRS PRN PO FEVER > 100.3'F; Start 02/01/22 at 17:30; Stop 02/02/22 at 08:30; Status DC Etomidate (Amidate) 20 mg STK-MED ONCE IV ; Start 02/01/22 at 17:38; Stop 02/01/22 at 17:38; Status DC Succinylcholine Chloride (Anectine) 200 mg STK-MED ONCE .ROUTE ; Start 02/01/22 at 17:39; Stop 02/01/22 at 17:39; Status DC Cefepime HCl (Maxipime) 1 gm 1X ONCE IVP Last administered on 02/01/22at 21:27; Start 02/01/22 at 18:30; Stop 02/01/22 at 18:31; Status DC Vancomycin HCl 2 gm/Sodium Chloride 500 ml @ 250 mls/hr 1X ONCE IV Last administered on 02/01/22at 21:27; Start 02/01/22 at 18:30; Stop 02/01/22 at 20:29; Status DC Fentanyl Citrate 30 ml @ 2.5 mls/hr CONT PRN IV SEE PROTOCOL Last administered on 02/02/22at 14:53; Start 02/01/22 at 19:15; Stop 02/06/22 at 10:53; Status DC Midazolam HCl 100 ml @ 1 mls/hr CONT PRN IV SEE PROTOCOL Last administered on 02/02/22at 14:55; Start 02/01/22 at 19:15 Vecuronium [place] (Norcuron Bolus) 6 mg PRN 1X PRN IV VENT INDUCTION; Start 02/01/22 at 19:15; Stop 02/02/22 at 09:18; Status DC Chlorhexidine Gluconate (Peridex) 15 ml BID MM Last administered on 02/04/22at 20:27; Start 02/01/22 at 21:00; Stop 02/05/22 at 07:18; Status DC Glycerin/ Hypromellose/ Polyethylene (Artificial Tears) 1 drop PRN Q1HR PRN OU DRY EYE; Start 02/01/22 at 19:15 Sodium Chloride 500 ml @ 500 mls/hr 1X PRN PRN IV SEE COMMENTS Last administered on 02/01/22at 19:00; Start 02/01/22 at 19:15 Atropine Sulfate (ATROPINE 0.5mg SYRINGE) 0.5 mg PRN Q5MIN PRN IV SEE COMMENTS; Start 02/01/22 at 19:15 Famotidine (Pepcid Vial) 20 mg BID IVP Last administered on 02/06/22at 10:14; Start 02/01/22 at 21:00 Magnesium Sulfate 50 ml @ 25 mls/hr 1X ONCE IV Last administered on 02/02/22at 05:21; Start 02/02/22 at 04:45; Stop 02/02/22 at 06:44; Status DC Potassium Chloride/Water 100 ml @ 100 mls/hr Q1H IV Last administered on 02/02/22at 08:09; Start 02/02/22 at 05:00; Stop 02/02/22 at 09:03; Status DC Potassium Chloride/Water 100 ml @ 100 mls/hr Q1H IV ; Start 02/02/22 at 08:30; Stop 02/02/22 at 12:29; Status UNV Potassium Chloride/Water 100 ml @ 100 mls/hr Q1H IV Last administered on 02/02/22at 12:00; Start 02/02/22 at 09:00; Stop 02/02/22 at 12:59; Status DC Ampicillin Sodium/ Sulbactam Sodium 3 gm/Sodium Chloride 100 ml @ 200 mls/hr Q6HRS IV Last administered on 02/02/22at 12:00; Start 02/02/22 at 12:00; Stop 02/02/22 at 18:49; Status DC Heparin Sodium/ Dextrose 250 ml @ 10 mls/hr CONT PRN IV PER PROTOCOL Last administered on 02/04/22at 00:31; Start 02/02/22 at 11:30; Stop 02/04/22 at 15:47; Status DC Heparin Sodium (Porcine) (Heparin Sodium) 3,300 unit PRN Q6HRS PRN IV FOR UFH LEVEL LESS THAN 0.2 Last administered on 02/03/22 14:30; Start 02/02/22 at 11:30; Stop 02/04/22 at 15:47; Status DC Aspirin (Aspirin Chewable) 81 mg DAILYWBKFT PO Last administered on 02/06/22at 10:16; Start 02/03/22 at 08:00 Aspirin (Aspirin Chewable) 81 mg 1X ONCE PO Last administered on 02/02/22at 14:48; Start 02/02/22 at 11:30; Stop 02/02/22 at 11:32; Status DC Amiodarone HCl (Cordarone) 150 mg STK-MED ONCE .ROUTE ; Start 02/01/22 at 17:00; Stop 02/02/22 at 13:19; Status DC Amiodarone HCl 450 mg/Dextrose 259 ml @ 34.533 mls/ hr CONT PRN IV SEE I/O RECORD Last administered on 02/03/22at 10:24; Start 02/02/22 at 16:45; Stop 02/03/22 at 11:18; Status DC Ampicillin Sodium/ Sulbactam Sodium 3 gm/Dextrose 100 ml @ 200 mls/hr Q6HRS IV Last administered on 02/03/22at 05:32; Start 02/02/22 at 18:00; Stop 02/03/22 at 11:59; Status DC Sodium Chloride 1,000 ml @ 1,000 mls/hr 1X ONCE IV Last administered on 02/02/22at 20:01; Start 02/02/22 at 16:30; Stop 02/02/22 at 19:52; Status DC Sodium Chloride 1,000 ml @ 1,000 mls/hr 1X ONCE IV Last administered on 02/02/22at 20:19; Start 02/02/22 at 20:00; Stop 02/02/22 at 20:59; Status DC Ampicillin Sodium/ Sulbactam Sodium 3 gm/Dextrose 100 ml @ 200 mls/hr Q6HRS IV Last administered on 02/06/22at 11:21; Start 02/03/22 at 12:00 Potassium Bicarbonate (Potassium Effervescent Tablet) 40 meq 1X ONCE PEG Last administered on 02/03/22at 04:50; Start 02/03/22 at 04:15; Stop 02/03/22 at 04:19; Status DC Info (Icu Electrolyte Protocol) 1 ea CONT PRN PRN MC PER PROTOCOL; Start 02/03/22 at 04:15 Info (Anti-Coagulation Monitoring By Pharmacy) 1 each PRN DAILY PRN MC PER PROTOCOL Last administered on 02/04/22at 08:37; Start 02/03/22 at 09:00; Stop 02/04/22 at 15:48; Status DC Potassium Bicarbonate (Potassium Effervescent Tablet) 40 meq 1X ONCE PEG Last administered on 02/03/22at 11:46; Start 02/03/22 at 11:15; Stop 02/03/22 at 11:1 9; Status DC Amiodarone HCl (Cordarone) 400 mg DAILY PO Last administered on 02/06/22at 10:15; Start 02/04/22 at 09:00 Metoprolol Tartrate (Lopressor) 12.5 mg BID PO Last administered on 02/05/22at 07:37; Start 02/03/22 at 12:00; Stop 02/05/22 at 10:05; Status DC Potassium Bicarbonate (Potassium Effervescent Tablet) 40 meq 1X ONCE FT Last administered on 02/04/22at 09:45; Start 02/04/22 at 09:30; Stop 02/04/22 at 09:31; Status DC Iodixanol (Visipaque 320) 100 ml STK-MED ONCE .ROUTE ; Start 02/04/22 at 13:54; Stop 02/04/22 at 13:54; Status DC Heparin Sodium/ Sodium Chloride 500 ml @ As Directed STK-MED ONCE .ROUTE ; Start 02/04/22 at 13:54; Stop 02/04/22 at 13:54; Status DC Lidocaine HCl (Lidocaine 1% 20ml Vial) 20 ml STK-MED ONCE .ROUTE ; Start at 14:06; Stop 02/04/22 at 14:07; Status DC Heparin Sodium/ Sodium Chloride 1,000 ml @ As Directed STK-MED ONCE .ROUTE ; S tart 02/04/22 at 14:07; Stop 02/04/22 at 14:07; Status DC Midazolam HCl (Versed) 2 mg STK-MED ONCE .ROUTE ; Start 02/04/22 at 14:13; Stop 02/04/22 at 14:13; Status DC Heparin Sodium (Porcine) (Heparin Sodium) 10,000 unit STK-MED ONCE .ROUTE ; Start 02/04/22 at 14:13; Stop 02/04/22 at 14:13; Status DC Verapamil HCl (Verapamil) 5 mg STK-MED ONCE .ROUTE ; Start 02/04/22 at 14:13; S top 02/04/22 at 14:13; Status DC Nitroglycerin (Nitroglycerin) 200 mcg STK-MED ONCE .ROUTE ; Start 02/04/22 at 14:13; Stop 02/04/22 at 14:13; Status DC Fentanyl Citrate (Fentanyl 2ml Vial) 100 mcg STK-MED ONCE .ROUTE ; Start 02/04/22 at 14:13; Stop 02/04/22 at 14:14; Status DC Lidocaine HCl (Xylocaine-Mpf 1% 2ml Vial) 2 ml STK-MED ONCE .ROUTE ; Start 02/04/22 at 14:18; Stop 02/04/22 at 14:18; Status DC Iodixanol (Visipaque 320) 100 ml STK-MED ONCE .ROUTE ; Start 02/04/22 at 14:22; Stop 02/04/22 at 14:22; Status DC Nitroglycerin (Nitroglycerin) 200 mcg 1X ONCE IART ; Start 02/04/22 at 14:30; Stop 02/04/22 at 14:40; Status DC Verapamil HCl (Verapamil) 2.5 mg 1X ONCE IART ; Start 02/04/22 at 14:30; Stop 02/04/22 at 14:40; Status DC Heparin Sodium (Porcine) (Heparin Sodium) 2,500 unit 1X ONCE IART ; Start 02/04/22 at 14:30; Stop 02/04/22 at 14:40; Status DC Heparin Sodium/ Sodium Chloride (HEPARIN for ARTERIAL LINE FLUSH) 1,000 unit 1X ONCE IART Last administered on 02/04/22at 14:30; Start 02/04/22 at 14:30; Stop 02/04/22 at 14:40; Status DC Heparin Sodium/ Sodium Chloride (HEPARIN for ARTERIAL LINE FLUSH) 1,000 unit 1X ONCE IART Last administered on 02/04/22at 14:30; Start 02/04/22 at 14:30; Stop 02/04/22 at 14:40; Status DC Iodixanol (Visipaque 320) 100 ml 1X ONCE IART Last administered on 02/04/22at 14:50; Start 02/04/22 at 14:30; Stop 02/04/22 at 14:40; Status DC Lidocaine HCl (Lidocaine 1% 20ml Vial) 20 ml 1X ONCE INJ ; Start 02/04/22 at 14:30; Stop 02/04/22 at 14:40; Status DC Verapamil HCl (Verapamil) 5 mg STK-MED ONCE .ROUTE ; Start 02/04/22 at 14:30; Stop 02/05/22 at 08:30; Status DC Lisinopril (Prinivil) 5 mg DAILY PO Last administered on 02/05/22at 09:37; Start 02/05/22 at 10:00; Stop 02/05/22 at 10:10; Status DC Metoprolol Tartrate (Lopressor) 25 mg BID PO Last administered on 02/06/22at 10:15; Start 02/05/22 at 21:00 Sacubitril/ Valsartan (Entresto 24 Mg-26 Mg) 1 tab BID PO Last administered on 02/06/22at 10:16; Start 02/06/22 at 09:00 Enoxaparin Sodium (Lovenox 40mg Syringe) 40 mg Q12HR SQ Last administered on 02/06/22at 10:16; Start 02/05/22 at 11:30 Allergies Allergies: Coded Allergies: No Known Drug Allergies (Unverified , 02/02/22) ROS Review of System Not obtainable other than the feelings of a cold prior to presentation Physical Exam Physical Exam She was lying in the bed on her back. She was intubated, ventilated and not sedated. It appears that Versed and fentanyl were discontinued on February 02, 2022. She did receive a single dosage of lorazepam in the last 24 hours because of agitation while being suctioned. She has overbreathing the vent. She does cough with suctioning and gag with oral care. Her eyes were open at times. There was no focus. Pupils were 4 mm and reacted directly and consensually to light. She did not have any afferent pupillary defect. Funduscopic exam did not reveal papilledema. Corneal reflex could not be elicited. Oculocephalic reflex was present. The face appeared symmetric. She did not have a fixed gaze preference. She did not protrude her tongue to command, follow any command or look up to command. She did not respond to visual threat or to loud clap. Muscle bulk was symmetric. Tone was rigid in all 4 extremities. Reflexes were 2/4 in all extremities but diminished at the ankles. She did not have any spontaneous movement. Nailbed pressure of the upper extremities provoked extensor posturing. Nailbed pressure in the feet did not provoke a response. Toes were not necessarily upgoing. Coordination testing was not possible. She did not have response to other sensory modalities. Gait was not testable. Auscultation of the carotid arteries did not reveal a bruit. Heart rhythm was regular without a murmur. Peripheral pulses were present in the wrists and feet. There was no cyanosis. There was no swelling in the feet. Vitals VITALS Vital Signs Date Time Temp Pulse Resp B/P (MAP) Pulse Ox O2 Delivery O2 Flow Rate FiO2 02/06/22 11:30 99 Ventilator 02/06/22 10:16 85 168/85 02/06/22 06:00 24 02/06/22 04:00 99.0 99.0 Labs Labs Laboratory Tests Test 02/05/22 08:00 02/05/22 09:00 02/06/22 05:30 02/06/22 07:44 O2 Saturation 97 % (92-99) 96 % (92-99) Arterial Blood pH 7.48 (7.35-7.45) 7.51 (7.35-7.45) Arterial Blood pCO2 at Patient Temp 39 mmHg (35-46) 36 mmHg (35-46) Arterial Blood pO2 at Patient Temp 89 mmHg (75-108) 83 mmHg (75-108) Arterial Blood HCO3 28 mmol/L (21-28) 28 mmol/L (21-28) Arterial Blood Base Excess 4 mmol/L (-3-3) 5 mmol/L (-3-3) FiO2 30 30% vent Sodium Level 138 mmol/L (136-145) 140 mmol/L (136-145) Potassium Level 3.8 mmol/L (3.5-5.1) 3.6 mmol/L (3.5-5.1) Chloride Level 104 mmol/L (98-107) 105 mmol/L (98-107) Carbon Dioxide Level 28 mmol/L (21-32) 29 mmol/L (21-32) Anion Gap 6 (6-14) 6 (6-14) Blood Urea Nitrogen 17 mg/dL (7-20) 15 mg/dL (7-20) Creatinine 0.8 mg/dL (0.6-1.0) 0.8 mg/dL (0.6-1.0) Estimated GFR (Cockcroft-Gault) 74.5 74.5 Glucose Level 119 mg/dL (70-99) 119 mg/dL (70-99) Calcium Level 8.4 mg/dL (8.5-10.1) 8.3 mg/dL (8.5-10.1) Magnesium Level 2.2 mg/dL (1.8-2.4) White Blood Count 10.0 x10^3/uL (4.0-11.0) Red Blood Count 3.66 x10^6/uL (3.50-5.40) Hemoglobin 10.9 g/dL (12.0-15.5) Hematocrit 32.8 % (36.0-47.0) Mean Corpuscular Volume 90 fL (79-100) Mean Corpuscular Hemoglobin 30 pg (25-35) Mean Corpuscular Hemoglobin Concent 33 g/dL (31-37) Red Cell Distribution Width 14.5 % (11.5-14.5) Platelet Count 300 x10^3/uL (140-400) Neutrophils (%) (Auto) 69 % (31-73) Lymphocytes (%) (Auto) 18 % (24-48) Monocytes (%) (Auto) 12 % (0-9) Eosinophils (%) (Auto) 1 % (0-3) Basophils (%) (Auto) 1 % (0-3) Neutrophils # (Auto) 6.9 x10^3/uL (1.8-7.7) Lymphocytes # (Auto) 1.8 x10^3/uL (1.0-4.8) Monocytes # (Auto) 1.2 x10^3/uL (0.0-1.1) Eosinophils # (Auto) 0.1 x10^3/uL (0.0-0.7) Basophils # (Auto) 0.0 x10^3/uL (0.0-0.2) BUN/Creatinine Ratio 19 (6-20) Total Bilirubin 0.4 mg/dL (0.2-1.0) Aspartate Amino Transf (AST/SGOT) 115 U/L (15-37) Alanine Aminotransferase (ALT/SGPT) 114 U/L (14-59) Alkaline Phosphatase 192 U/L (46-116) Total Protein 6.5 g/dL (6.4-8.2) Albumin 2.3 g/dL (3.4-5.0) Albumin/Globulin Ratio 0.5 (1.0-1.7) Laboratory Tests Test 02/06/22 05:30 02/06/22 07:44 White Blood Count 10.0 x10^3/uL (4.0-11.0) Red Blood Count 3.66 x10^6/uL (3.50-5.40) Hemoglobin 10.9 g/dL (12.0-15.5) Hematocrit 32.8 % (36.0-47.0) Mean Corpuscular Volume 90 fL (79-100) Mean Corpuscular Hemoglobin 30 pg (25-35) Mean Corpuscular Hemoglobin Concent 33 g/dL (31-37) Red Cell Distribution Width 14.5 % (11.5-14.5) Platelet Count 300 x10^3/uL (140-400) Neutrophils (%) (Auto) 69 % (31-73) Lymphocytes (%) (Auto) 18 % (24-48) Monocytes (%) (Auto) 12 % (0-9) Eosinophils (%) (Auto) 1 % (0-3) Basophils (%) (Auto) 1 % (0-3) Neutrophils # (Auto) 6.9 x10^3/uL (1.8-7.7) Lymphocytes # (Auto) 1.8 x10^3/uL (1.0-4.8) Monocytes # (Auto) 1.2 x10^3/uL (0.0-1.1) Eosinophils # (Auto) 0.1 x10^3/uL (0.0-0.7) Basophils # (Auto) 0.0 x10^3/uL (0.0-0.2) Sodium Level 140 mmol/L (136-145) Potassium Level 3.6 mmol/L (3.5-5.1) Chloride Level 105 mmol/L (98-107) Carbon Dioxide Level 29 mmol/L (21-32) Anion Gap 6 (6-14) Blood Urea Nitrogen 15 mg/dL (7-20) Creatinine 0.8 mg/dL (0.6-1.0) Estimated GFR (Cockcroft-Gault) 74.5 BUN/Creatinine Ratio 19 (6-20) Glucose Level 119 mg/dL (70-99) Calcium Level 8.3 mg/dL (8.5-10.1) Total Bilirubin 0.4 mg/dL (0.2-1.0) Aspartate Amino Transf (AST/SGOT) 115 U/L (15-37) Alanine Aminotransferase (ALT/SGPT) 114 U/L (14-59) Alkaline Phosphatase 192 U/L (46-116) Total Protein 6.5 g/dL (6.4-8.2) Albumin 2.3 g/dL (3.4-5.0) Albumin/Globulin Ratio 0.5 (1.0-1.7) O2 Saturation 96 % (92-99) Arterial Blood pH 7.51 (7.35-7.45) Arterial Blood pCO2 at Patient Temp 36 mmHg (35-46) Arterial Blood pO2 at Patient Temp 83 mmHg (75-108) Arterial Blood HCO3 28 mmol/L (21-28) Arterial Blood Base Excess 5 mmol/L (-3-3) FiO2 30% vent Images Images Chest x-ray February 04, 2022 Findings: Stable endotracheal tube, enteric tube and right IJ central line. Increased patchy mid and bibasilar opacities. No pleural effusion. No pneumothorax. Impression: 1. Increased patchy mid and bibasilar opacities, left greater than right. CT head without contrast February 01, 2022 FINDINGS: No focal parenchymal lesion or hemorrhage is identified. There is no midline shift or sulcal effacement. Mild patchy evidence in the periventricular white matter. No acute vascular territory infarction is identified. Anglin-white distinction is preserved. The ventricular system is within normal limits without compression hydroc ephalus. The basal cisterns are well maintained. The visualized portions of the paranasal sinuses and mastoid air cells are well- pneumatized. No acute fractures. IMPRESSION: Mild small vessel ischemic change, technically age indeterminate without recent prior imaging. Assessment/Plan Assessment/Plan Patient is a 57-year-old woman who had an out of hospital cardiopulmonary arrest. She was found by EMS to be in ventricular fibrillation. She required 3 cycles of medications before she had return of spontaneous circulation. She is now 5 days out from the insult. She has been off sedation except for very rare Ativan since February 02, 2022. The neurologic examination was abnormal. She did not have the ability to follow commands. She still does have some brainstem reflex. So is not brain . She has extensor posturing in the arms with noxious stimulation. She has rigidity of all extremities. The initial CT scan of the head performed on admission did not reveal any acute process. Most sedation has been held for several days. She is oxygenating well on the ventilator. At this point prognosis is guarded. I will arrange for a follow-up CT scan of the head to see if there is an interval change. Neurology will follow up on a daily basis to see if there is improvement of the examination. If she does not improve over the next several days without a particular reason superseding to suppress her exam then prognosis worsens greatly. I spoke with her son at bedside and explained my findings as well as prognosis. EVELINE BRADY MD Feb 06, 2022 12:42
--- NOTE | 2022-02-06 12:51 | PDOC ---
[employer] PROGRESS NOTE Date of Service DOS: DATE: 02/06/22 TIME: 12:49 Chief Complaint Chief Complaint Acute hypoxic respiratory failure , possible aspiration probable anoxic brain injury Vfib/VTach cardiac arrest in field, Hypokalemia/hypomagnesemia acute renal failure concern for brain injury with arrest, better today , still sluggish, upward gaze, no meaningful following Morbid obesity, BMI 46 History of Present Illness History of Present Illness small dose IV ativan given last night, she was working against the vent per RN overnight, no purposeful movement, family hre, Neuro following poor prognosis discussed, cont supportive care in ICU, on vent Pulmonary following, still on vent e-lyte management, ICU protocol NO sedation cont antibiotics mult family here today Vitals/I&O Vitals/I&O: Vital Signs Date Time Temp Pulse Resp B/P (MAP) Pulse Ox O2 Delivery O2 Flow Rate FiO2 02/06/22 11:30 99 Ventilator 02/06/22 10:16 85 168/85 02/06/22 06:00 24 02/06/22 04:00 99.0 99.0 I & O 02/05/22 02/05/22 02/06/22 15:00 23:00 07:00 Intake Total 300 ml 905 ml 918 ml Output Total 770 ml 1030 ml 560 ml Balance -470 ml -125 ml 358 ml Physical Exam General: Other (sedated) Heart: Regular rate (SR with PVCs), Other (distant heart sounds) Lungs: Clear Abdomen: Soft, Other (obese) Extremities: No cyanosis, Other (trace LE ) Skin: No breakdown Labs Labs: Laboratory Tests Test 02/06/22 05:30 02/06/22 07:44 White Blood Count 10.0 x10^3/uL (4.0-11.0) Red Blood Count 3.66 x10^6/uL (3.50-5.40) Hemoglobin 10.9 g/dL (12.0-15.5) Hematocrit 32.8 % (36.0-47.0) Mean Corpuscular Volume 90 fL (79-100) Mean Corpuscular Hemoglobin 30 pg (25-35) Mean Corpuscular Hemoglobin Concent 33 g/dL (31-37) Red Cell Distribution Width 14.5 % (11.5-14.5) Platelet Count 300 x10^3/uL (140-400) Neutrophils (%) (Auto) 69 % (31-73) Lymphocytes (%) (Auto) 18 % (24-48) Monocytes (%) (Auto) 12 % (0-9) Eosinophils (%) (Auto) 1 % (0-3) Basophils (%) (Auto) 1 % (0-3) Neutrophils # (Auto) 6.9 x10^3/uL (1.8-7.7) Lymphocytes # (Auto) 1.8 x10^3/uL (1.0-4.8) Monocytes # (Auto) 1.2 x10^3/uL (0.0-1.1) Eosinophils # (Auto) 0.1 x10^3/uL (0.0-0.7) Basophils # (Auto) 0.0 x10^3/uL (0.0-0.2) Sodium Level 140 mmol/L (136-145) Potassium Level 3.6 mmol/L (3.5-5.1) Chloride Level 105 mmol/L (98-107) Carbon Dioxide Level 29 mmol/L (21-32) Anion Gap 6 (6-14) Blood Urea Nitrogen 15 mg/dL (7-20) Creatinine 0.8 mg/dL (0.6-1.0) Estimated GFR (Cockcroft-Gault) 74.5 BUN/Creatinine Ratio 19 (6-20) Glucose Level 119 mg/dL (70-99) Calcium Level 8.3 mg/dL (8.5-10.1) Total Bilirubin 0.4 mg/dL (0.2-1.0) Aspartate Amino Transf (AST/SGOT) 115 U/L (15-37) Alanine Aminotransferase (ALT/SGPT) 114 U/L (14-59) Alkaline Phosphatase 192 U/L (46-116) Total Protein 6.5 g/dL (6.4-8.2) Albumin 2.3 g/dL (3.4-5.0) Albumin/Globulin Ratio 0.5 (1.0-1.7) O2 Saturation 96 % (92-99) Arterial Blood pH 7.51 (7.35-7.45) Arterial Blood pCO2 at Patient Temp 36 mmHg (35-46) Arterial Blood pO2 at Patient Temp 83 mmHg (75-108) Arterial Blood HCO3 28 mmol/L (21-28) Arterial Blood Base Excess 5 mmol/L (-3-3) FiO2 30% vent Assessment and Plan Assessmemt and Plan Problems Medical Problems: (1) Fever Status: Acute Comment Review of Relevant I have reviewed the following items alf (where applicable) has been applied. Medications: Current Medications Medications (Trade) Dose Ordered Sig/Katia Route PRN Reason Start Time Stop Time Status Last Admin Dose Admin Metoprolol Tartrate (Lopressor) 25 mg BID PO 02/05/22 21:00 02/06/22 10:15 Sacubitril/ Valsartan (Entresto 24 Mg-26 Mg) 1 tab BID PO 02/06/22 09:00 02/06/22 10:16 Justifications for Admission Other Justification SILVIANO SIMMS MD Feb 06, 2022 12:51
--- NOTE | 2022-02-06 13:15 | PDOC ---
CARDIOLOGY PROGRESS NOTE SUBJECTIVE: No new events. Nonresponsive. Family at bedside. OBJECTIVE: Vital Signs/I&O: Vital Signs Date Time Temp Pulse Resp B/P (MAP) Pulse Ox O2 Delivery O2 Flow Rate FiO2 02/06/22 11:30 99 Ventilator 02/06/22 10:16 85 168/85 02/06/22 06:00 24 02/06/22 04:00 99.0 99.0 I & O 02/05/22 02/05/22 02/06/22 15:00 23:00 07:00 Intake Total 300 ml 905 ml 918 ml Output Total 770 ml 1030 ml 560 ml Balance -470 ml -125 ml 358 ml Objective: GEN.: Non-responsive. HEENT: Head is normocephalic, atraumatic NECK: Supple. LUNGS: Clear to auscultation. HEART: RRR, S1, S2 present. Peripheral pulses intact ABDOMEN: Soft, nontender. Positive bowel sounds. EXTREMITIES: Without any cyanosis. NEUROLOGIC: Non-responsive PSYCHIATRIC: Normal affect, normal mood. SKIN: No ulcerations CURRENT MEDICATIONS: Current Medications Medications (Trade) Dose Ordered Sig/Katia Route PRN Reason Start Time Stop Time Status Last Admin Dose Admin Metoprolol Tartrate (Lopressor) 25 mg BID PO 02/05/22 21:00 02/06/22 10:15 Sacubitril/ Valsartan (Entresto 24 Mg-26 Mg) 1 tab BID PO 02/06/22 09:00 02/06/22 10:16 DIAGNOSTIC TESTING: Labs reviewed Cath noted. Labs: Laboratory Tests 02/06/22 05:30 Laboratory Tests Test 02/06/22 05:30 02/06/22 07:44 White Blood Count 10.0 x10^3/uL (4.0-11.0) Red Blood Count 3.66 x10^6/uL (3.50-5.40) Hemoglobin 10.9 g/dL (12.0-15.5) L Hematocrit 32.8 % (36.0-47.0) L Mean Corpuscular Volume 90 fL (79-100) Mean Corpuscular Hemoglobin 30 pg (25-35) Mean Corpuscular Hemoglobin Concent 33 g/dL (31-37) Red Cell Distribution Width 14.5 % (11.5-14.5) Platelet Count 300 x10^3/uL (140-400) Neutrophils (%) (Auto) 69 % (31-73) Lymphocytes (%) (Auto) 18 % (24-48) L Monocytes (%) (Auto) 12 % (0-9) H Eosinophils (%) (Auto) 1 % (0-3) Basophils (%) (Auto) 1 % (0-3) Neutrophils # (Auto) 6.9 x10^3/uL (1.8-7.7) Lymphocytes # (Auto) 1.8 x10^3/uL (1.0-4.8) Monocytes # (Auto) 1.2 x10^3/uL (0.0-1.1) H Eosinophils # (Auto) 0.1 x10^3/uL (0.0-0.7) Basophils # (Auto) 0.0 x10^3/uL (0.0-0.2) Sodium Level 140 mmol/L (136-145) Potassium Level 3.6 mmol/L (3.5-5.1) Chloride Level 105 mmol/L (98-107) Carbon Dioxide Level 29 mmol/L (21-32) Anion Gap 6 (6-14) Blood Urea Nitrogen 15 mg/dL (7-20) Creatinine 0.8 mg/dL (0.6-1.0) Estimated GFR (Cockcroft-Gault) 74.5 BUN/Creatinine Ratio 19 (6-20) Glucose Level 119 mg/dL (70-99) H Calcium Level 8.3 mg/dL (8.5-10.1) L Total Bilirubin 0.4 mg/dL (0.2-1.0) Aspartate Amino Transf (AST/SGOT) 115 U/L (15-37) H Alkaline Phosphatase 192 U/L (46-116) H Total Protein 6.5 g/dL (6.4-8.2) Albumin 2.3 g/dL (3.4-5.0) L Albumin/Globulin Ratio 0.5 (1.0-1.7) L O2 Saturation 96 % (92-99) Arterial Blood pH 7.51 (7.35-7.45) H Arterial Blood pCO2 at Patient Temp 36 mmHg (35-46) Arterial Blood pO2 at Patient Temp 83 mmHg (75-108) Arterial Blood HCO3 28 mmol/L (21-28) Arterial Blood Base Excess 5 mmol/L (-3-3) H FiO2 30% vent ASSESSMENT: 1. Anoxic brain injury 2. Cardiac arrest - lower suspicion for primary cardiac process but cannot rule out NICM. PLAN: 1. Await neurologic recovery, if positive response, then will need echo prior to DC. 2. Continue Metoprolol and Entresto for now. 3. Will follow along peripherally. Justicifation of Admission Dx: Justifications for Admission: Justification of Admission Dx: Yes CARON ANDREA MD Feb 06, 2022 13:15
--- NOTE | 2022-02-06 16:18 | RAD ---
CT head without contrast dated 02/06/2022 4:12 PM Comparison: 02/01/2022 CLINICAL INDICATION: Cardiac arrest. Evaluate for anoxic injury. TECHNIQUE: Contiguous axial imaging of the head was performed from skull base to vertex. One or more of the following individualized dose reduction techniques were utilized for this examinat ion: 1. Automated exposure control 2. Adjustment of the mA and/or kV according to patient size 3. Use of iterative reconstruction technique. FINDINGS: Ventricles and sulci are diffusely effaced, progressed from prior study. The ventricular caliber appe ars slightly smaller from prior exam. No midline shift or mass effect. There is little darnell-white dif ferentiation throughout. No hemorrhage or extra-axial collection. Mild patchy low density in the deep /subcortical periventricular white matter. Subtotal opacification of the left maxillary sinus and left ethmoid air cells and sphenoid sinuses wi th small air-fluid levels. Mastoid air cells are clear. No acute calvarial abnormality. IMPRESSION: 1. Loss of darnell-white differentiation with effacement of the sulci, progressed from prior study. This is suggestive of diffuse brain edema and likely related to given history of anoxic injury. Correlate clinically. 2. No acute hemorrhage or mass. 3. Mild chronic small vessel ischemic changes in the deep/subcortical periventricular white matter. 4. Moderate sinus disease. Electronically signed by: Colin Mackey MD (02/06/2022 4:15 PM) [id number]
--- NOTE | 2022-02-06 16:25 | NUR ---
1500 Remains off sedation. Simple reflexes consistent but does not follow simple commands. Periods posturing w no resistance during passive ROM bilateral arms/ lower extremities rigid with attempted ROM. Stool x1 partial formed after am laxative. Coccyx intact. repositioned q1-2 H w pillow support as well as be in chair position. Am ETT secretions bloody. Copious/clear/thin oropharyngeal secretions entire 12H. Family assist w minor care. Very supportive natures. . Addendum: 02/06/22 at 1634 by Jessi Randolph RN to and from CT w results pending.
[2022-02-07] VITALS (24 sets, daily range): BP systolic 134–173; BP diastolic 56–98
[2022-02-07] MEDS: AMPICILLIN/SULBACTAM 3 GM in IV DEXTROSE 5% 100ML 100 ML IV SCH ×4 (00:34→18:11)
[2022-02-07 07:16] LABS: BASE EXCESS ABG 4 mmol/L (-3-3); HCO3 ABG 27 mmol/L (21-28); PCO2 ABG 35 mmHg (35-46); PO2 ABG 104 mmHg (75-108); SAT O2 ABG 98 % (92-99)
[2022-02-07 07:18] LABS: FIO2 ABG 40% VENT
[2022-02-07] MEDS: METOPROLOL TART IMMED RELEASE 25 MG TABLET. PO SCH ×2 (08:11→21:49)
[2022-02-07] MEDS: SACUBITRIL/VALSARTAN 24/26MG TABLET. PO SCH ×2 (08:11→21:48)
[2022-02-07] MEDS: SENNOSIDES/DOCUSATE 8.6/50MG TABLET. PO SCH ×2 (08:12→21:00)
[2022-02-07] MEDS: ASPIRIN CHEWABLE 81 MG TABLET. PO SCH (08:12)
[2022-02-07] MEDS: FAMOTIDINE 20 MG/2 ML VIAL IVP SCH ×2 (08:12→21:47)
[2022-02-07] MEDS: AMIODARONE HCL 200 MG TABLET. PO SCH (08:12)
[2022-02-07] MEDS: ENOXAPARIN 40 MG/0.4 ML SYRINGE. SQ SCH ×2 (08:12→21:48)
--- NOTE | 2022-02-07 09:20 | PDOC ---
CARDIOLOGY PROGRESS NOTE SUBJECTIVE: No events overnight. Discussed with nursing staff. No significant neurological changes. OBJECTIVE: Vital Signs/I&O: Vital Signs Date Time Temp Pulse Resp B/P (MAP) Pulse Ox O2 Delivery O2 Flow Rate FiO2 02/07/22 08:12 77 157/95 02/07/22 07:08 98 Ventilator 02/07/22 06:00 19 02/07/22 04:00 99.0 99.0 I & O 02/06/22 02/06/22 02/07/22 15:00 23:00 07:00 Intake Total 200 ml 1212 ml 888 ml Output Total 625 ml 665 ml 455 ml Balance -425 ml 547 ml 433 ml Objective: GEN.: No apparent distress. Non-responsive HEENT: Head is normocephalic, atraumatic NECK: Supple. LUNGS: Clear to auscultation. HEART: RRR, S1, S2 present. Peripheral pulses intact ABDOMEN: Soft, nontender. Positive bowel sounds. EXTREMITIES: Without any cyanosis. NEUROLOGIC: Non-responsive SKIN: No ulcerations CURRENT MEDICATIONS: Meds reviewed. Entresto, Metoprol bid and Amio DIAGNOSTIC TESTING: Labs reviewed. CT head reviewed. ASSESSMENT: 1. Anoxic brain injury 2. Hypoxic resp failure. 3. Cardiac arrest. PLAN: 1. Stable from CV standpoint. Continue supportive care. Discussed with neurology. Await for any meaningful recovery and could consider ICD at that time. Otherwise, supportive care. We will be available for any issues if needed. 2. Decrease amiodarone to 200mg daily and monitor LFT's. Justicifation of Admission Dx: Justifications for Admission: Justification of Admission Dx: Yes CARON ANDREA MD Feb 07, 2022 09:20
--- NOTE | 2022-02-07 09:47 | PDOC ---
PULMONARY PROGRESS NOTES DATE: 02/07/22 TIME: 09:44 Subjective Patient remains on mechanical ventilation, patient has been off sedation since 02/03/2022, reflexes intact, Remains unresponsive. l Vitals Vital Signs Date Time Temp Pulse Resp B/P (MAP) Pulse Ox O2 Delivery O2 Flow Rate FiO2 02/07/22 09:16 97 Ventilator 02/07/22 08:12 77 157/95 02/07/22 06:00 19 02/07/22 04:00 99.0 99.0 Comments Remains intubated on assist control mode Lungs: Clear Cardiovascular: S1, S2 Abdomen: Soft, Non-tender, Other (Obese) Extremities: Other (1+ edema) Skin: Warm Labs Laboratory Tests Test 02/06/22 05:30 02/06/22 07:44 02/07/22 07:12 White Blood Count 10.0 x10^3/uL (4.0-11.0) Red Blood Count 3.66 x10^6/uL (3.50-5.40) Hemoglobin 10.9 g/dL (12.0-15.5) Hematocrit 32.8 % (36.0-47.0) Mean Corpuscular Volume 90 fL (79-100) Mean Corpuscular Hemoglobin 30 pg (25-35) Mean Corpuscular Hemoglobin Concent 33 g/dL (31-37) Red Cell Distribution Width 14.5 % (11.5-14.5) Platelet Count 300 x10^3/uL (140-400) Neutrophils (%) (Auto) 69 % (31-73) Lymphocytes (%) (Auto) 18 % (24-48) Monocytes (%) (Auto) 12 % (0-9) Eosinophils (%) (Auto) 1 % (0-3) Basophils (%) (Auto) 1 % (0-3) Neutrophils # (Auto) 6.9 x10^3/uL (1.8-7.7) Lymphocytes # (Auto) 1.8 x10^3/uL (1.0-4.8) Monocytes # (Auto) 1.2 x10^3/uL (0.0-1.1) Eosinophils # (Auto) 0.1 x10^3/uL (0.0-0.7) Basophils # (Auto) 0.0 x10^3/uL (0.0-0.2) Sodium Level 140 mmol/L (136-145) Potassium Level 3.6 mmol/L (3.5-5.1) Chloride Level 105 mmol/L (98-107) Carbon Dioxide Level 29 mmol/L (21-32) Anion Gap 6 (6-14) Blood Urea Nitrogen 15 mg/dL (7-20) Creatinine 0.8 mg/dL (0.6-1.0) Estimated GFR (Cockcroft-Gault) 74.5 BUN/Creatinine Ratio 19 (6-20) Glucose Level 119 mg/dL (70-99) Calcium Level 8.3 mg/dL (8.5-10.1) Total Bilirubin 0.4 mg/dL (0.2-1.0) Aspartate Amino Transf (AST/SGOT) 115 U/L (15-37) Alanine Aminotransferase (ALT/SGPT) 114 U/L (14-59) Alkaline Phosphatase 192 U/L (46-116) Total Protein 6.5 g/dL (6.4-8.2) Albumin 2.3 g/dL (3.4-5.0) Albumin/Globulin Ratio 0.5 (1.0-1.7) O2 Saturation 96 % (92-99) 98 % (92-99) Arterial Blood pH 7.51 (7.35-7.45) 7.51 (7.35-7.45) Arterial Blood pCO2 at Patient Temp 36 mmHg (35-46) 35 mmHg (35-46) Arterial Blood pO2 at Patient Temp 83 mmHg (75-108) 104 mmHg (75-108) Arterial Blood HCO3 28 mmol/L (21-28) 27 mmol/L (21-28) Arterial Blood Base Excess 5 mmol/L (-3-3) 4 mmol/L (-3-3) FiO2 30% vent 40% vent Laboratory Tests Test 02/07/22 07:12 O2 Saturation 98 % (92-99) Arterial Blood pH 7.51 (7.35-7.45) Arterial Blood pCO2 at Patient Temp 35 mmHg (35-46) Arterial Blood pO2 at Patient Temp 104 mmHg (75-108) Arterial Blood HCO3 27 mmol/L (21-28) Arterial Blood Base Excess 4 mmol/L (-3-3) FiO2 40% vent Comments Repeat CT head 02/06/2022 reviewed Chest x-ray reviewed 02/03/2022. Mild bilateral interstitial infiltrates Impression . 1. Acute hypoxic respiratory failure secondary to cardiac arrest and suspected aspiration. Now has anoxic encephalopathy with recent CT head showing findings consistent with cerebral edema and anoxic brain injury 2. Status post ventricular fibrillation and ventricular tachycardia cardiac arrest, requiring multiple shocks, epinephrine with return of spontaneous circulation. The duration since she was found unresponsive was probably very long and as a result, she was not considered a candidate for hypothermia. 3. Abnormal CT chest with upper lobe infiltrates and some basal atelectasis. Suspect component of aspiration. 4. Leukocytosis.--Ongoing/improved 5. Acute kidney injury.--Resolved 6. Hypokalemia. May be contributing to ventricular fibrillation and ventricular tachycardia. Improved 7. Lactic acidosis secondary to shock, now resolved. 8. Abnormal liver function tests secondary to shock liver. 9. Possible urinary tract infection./She has ureteral stone. 10. Anoxic encephalopathy with recent worsening CT head findings Plan . Updated 02/07/2022 Continue current ventilatory support, ABG reviewed exam unchanged, flexes intact, does not track, concerning upward gaze patient has been off sedation since 02/03/2022, CT head findings consistent with anoxic encephalopathy. Monitor renal function/liver function--ongoing transaminitis, stable renal fun ction Follow cardiology recommendations--continue amiodarone Continue antibiotics, follow cultures Continue tube feeding for nutritional support DVT/GI prophylaxis Discussed with RN and patient's son at the bedside. I did explain to them clinical evaluation as well as repeat CT head findings. I had recommended comfort care and allowing natural . Alternatively if they want to keep her alive tracheostomy and PEG tube would be required. Patient's son is going to talk to his brother and let me know what decision they make as a family. Updated 02/06/2022 Continue current ventilatory support, ABG reviewed Logical exam unchanged, flexes intact, does not track, concerning upward gaze Continue to monitor neurology status concern for anoxic injury, patient has been off sedation since 02/03/2022, will reevaluate/reassess on Tuesday and if not any improvement in neurological status, will need family care meeting in regards to plan of care, palliative care versus proceeding with tracheostomy/PEG tube Monitor renal function/liver function--ongoing transaminitis, stable renal function Follow cardiology recommendations--continue amiodarone Continue antibiotics, follow cultures Continue tube feeding for nutritional support DVT/GI prophylaxis Discussed with RN and RT and daughter at bedside Critical care time 30 minutes Updated 02/05/2022 Continue current ventilatory support, ABG reviewed Continue to monitor neurology status concern for anoxic injury, patient has been off sedation since 02/03/2022, will reevaluate/reassess on Tuesday and if not any improvement in neurological status, will need family care meeting in regards to plan of care, palliative care versus proceeding with tracheostomy/PEG tube Monitor renal function/liver function--stable Follow cardiology recommendations--continue amiodarone Continue antibiotics, follow cultures Continue tube feeding for nutritional support DVT/GI prophylaxis Discussed with RN and RT and son at bedside Critical care time 30 minutes Updated 02/04/2022 Continue current ventilatory support, ABG reviewed Continue to monitor neurology status concern for anoxic injury, will monitor off sedation for 48-70 further decisions regards to plan of care Monitor renal function/liver function Follow cardiology recommendations--continue amiodarone/heparin Continue antibiotics, follow cultures DVT/GI prophylaxis Discussed with RN and RT and son at bedside Critical care time 35 minutes MAYDA KIM MD Feb 07, 2022 09:47
--- NOTE | 2022-02-07 12:54 | PDOC ---
[employer] PROGRESS NOTE Date of Service DOS: DATE: 02/07/22 TIME: 12:53 Chief Complaint Chief Complaint Acute hypoxic respiratory failure , possible aspiration probable anoxic brain injury Vfib/VTach cardiac arrest in field, Hypokalemia/hypomagnesemia acute renal failure concern for brain injury with arrest, better today , still sluggish, upward gaze, no meaningful following Morbid obesity, BMI 46 History of Present Illness History of Present Illness 02/07, no sedation, mental status poor, not following family aware, and here a lot, neuro following likely brain injury 02/06 she was working against the vent per RN overnight, no purposeful movement, family hre, Neuro following poor prognosis discussed, cont supportive care in ICU, on vent Pulmonary following, still on vent e-lyte management, ICU protocol NO sedation cont antibiotics mult family here today Vitals/I&O Vitals/I&O: Vital Signs Date Time Temp Pulse Resp B/P (MAP) Pulse Ox O2 Delivery O2 Flow Rate FiO2 02/07/22 12:15 98 Ventilator 02/07/22 12:00 99.0 76 20 146/86 99.0 I & O 02/06/22 02/06/22 02/07/22 15:00 23:00 07:00 Intake Total 200 ml 1212 ml 888 ml Output Total 625 ml 665 ml 455 ml Balance -425 ml 547 ml 433 ml Physical Exam General: Other (sedated) Heart: Regular rate (SR with PVCs), Other (distant heart sounds) Lungs: Clear Abdomen: Soft, Other (obese) Extremities: No cyanosis, Other (trace LE ) Skin: No breakdown Labs Labs: Laboratory Tests Test 02/07/22 07:12 O2 Saturation 98 % (92-99) Arterial Blood pH 7.51 (7.35-7.45) Arterial Blood pCO2 at Patient Temp 35 mmHg (35-46) Arterial Blood pO2 at Patient Temp 104 mmHg (75-108) Arterial Blood HCO3 27 mmol/L (21-28) Arterial Blood Base Excess 4 mmol/L (-3-3) FiO2 40% vent Assessment and Plan Assessmemt and Plan Problems Medical Problems: (1) Fever Status: Acute Comment Review of Relevant I have reviewed the following items alf (where applicable) has been applied. Justifications for Admission Other Justification SILVIANO SIMMS MD Feb 07, 2022 12:54
[2022-02-07] MEDS: ATROPINE 1% OPHTH SOLUTION 5ML BOTTLE. SL PRN ×2 (14:41→16:49)
--- NOTE | 2022-02-07 16:54 | PDOC ---
PROGRESS NOTES Date of Service DATE: 02/07/22 TIME: 16:50 Assessment Problems Medical Problems: (1) Fever Status: Acute Anoxic encephalopathy from cardiopulmonary arrest-a follow-up CT scan of the brain performed February 06, 2022 revealed a distinct change from the previous study. There was loss of darnell-white junction differentiation and there was sulcal ablation diffusely suggesting diffuse cerebral edema. This would be consistent with a severe anoxic injury. Prognosis for meaningful recovery is extremely poor. The neurologic examination does not show any improvement whatsoever. Plan I spoke with the son and a close family member at bedside. I explained the result of the CT as well as my neurologic examination. They had opportunity to ask many questions and did so. I recommend observing for another day or 2 for improvement which I do not think will happen. They need to be able to communicate everything with the family. I would recommend a shift of care from restorative to comfort is the highest priority to allow a natural . The family will give this some thought. Subjective Nonverbal in a coma on a ventilator. Objective Vital Signs Date Time Temp Pulse Resp B/P (MAP) Pulse Ox O2 Delivery O2 Flow Rate FiO2 02/07/22 16:29 99 Ventilator 02/07/22 14:00 71 19 152/96 02/07/22 12:00 99.0 99.0 Intake and Output 02/07/22 07:00 Intake Total 2300 ml Output Total 1745 ml Balance 555 ml IV Total 350 ml Tube Feeding 1550 ml Other 400 ml Output Urine Total 1745 ml Gastric Drainage Total 0 ml PHYSICAL EXAM Patient was intubated and ventilated. She is not sedated. Her eyes were clos ed. With noxious stimulation the eyes opened but there was no focus. She had roving eye movements. The eyes were not conjugate. Pupils were 3 mm and poorly reactive. She did not respond to visual threat or loud clap. She did not follow command. She did not look up or down to command. Muscle bulk was symmetric. Tone was slightly increased in the arms and quite rigid in the legs. Nailbed pressure in the upper extremities provoked extensor posturing. Nailbed pressure in the feet did not provoke a response. Review of Relevant I have reviewed the following items alf (where applicable) has been applied. Labs Laboratory Tests Test 02/06/22 05:30 02/06/22 07:44 02/07/22 07:12 White Blood Count 10.0 x10^3/uL (4.0-11.0) Red Blood Count 3.66 x10^6/uL (3.50-5.40) Hemoglobin 10.9 g/dL (12.0-15.5) Hematocrit 32.8 % (36.0-47.0) Mean Corpuscular Volume 90 fL (79-100) Mean Corpuscular Hemoglobin 30 pg (25-35) Mean Corpuscular Hemoglobin Concent 33 g/dL (31-37) Red Cell Distribution Width 14.5 % (11.5-14.5) Platelet Count 300 x10^3/uL (140-400) Neutrophils (%) (Auto) 69 % (31-73) Lymphocytes (%) (Auto) 18 % (24-48) Monocytes (%) (Auto) 12 % (0-9) Eosinophils (%) (Auto) 1 % (0-3) Basophils (%) (Auto) 1 % (0-3) Neutrophils # (Auto) 6.9 x10^3/uL (1.8-7.7) Lymphocytes # (Auto) 1.8 x10^3/uL (1.0-4.8) Monocytes # (Auto) 1.2 x10^3/uL (0.0-1.1) Eosinophils # (Auto) 0.1 x10^3/uL (0.0-0.7) Basophils # (Auto) 0.0 x10^3/uL (0.0-0.2) Sodium Level 140 mmol/L (136-145) Potassium Level 3.6 mmol/L (3.5-5.1) Chloride Level 105 mmol/L (98-107) Carbon Dioxide Level 29 mmol/L (21-32) Anion Gap 6 (6-14) Blood Urea Nitrogen 15 mg/dL (7-20) Creatinine 0.8 mg/dL (0.6-1.0) Estimated GFR (Cockcroft-Gault) 74.5 BUN/Creatinine Ratio 19 (6-20) Glucose Level 119 mg/dL (70-99) Calcium Level 8.3 mg/dL (8.5-10.1) Total Bilirubin 0.4 mg/dL (0.2-1.0) Aspartate Amino Transf (AST/SGOT) 115 U/L (15-37) Alanine Aminotransferase (ALT/SGPT) 114 U/L (14-59) Alkaline Phosphatase 192 U/L (46-116) Total Protein 6.5 g/dL (6.4-8.2) Albumin 2.3 g/dL (3.4-5.0) Albumin/Globulin Ratio 0.5 (1.0-1.7) O2 Saturation 96 % (92-99) 98 % (92-99) Arterial Blood pH 7.51 (7.35-7.45) 7.51 (7.35-7.45) Arterial Blood pCO2 at Patient Temp 36 mmHg (35-46) 35 mmHg (35-46) Arterial Blood pO2 at Patient Temp 83 mmHg (75-108) 104 mmHg (75-108) Arterial Blood HCO3 28 mmol/L (21-28) 27 mmol/L (21-28) Arterial Blood Base Excess 5 mmol/L (-3-3) 4 mmol/L (-3-3) FiO2 30% vent 40% vent Laboratory Tests Test 02/07/22 07:12 O2 Saturation 98 % (92-99) Arterial Blood pH 7.51 (7.35-7.45) Arterial Blood pCO2 at Patient Temp 35 mmHg (35-46) Arterial Blood pO2 at Patient Temp 104 mmHg (75-108) Arterial Blood HCO3 27 mmol/L (21-28) Arterial Blood Base Excess 4 mmol/L (-3-3) FiO2 40% vent Microbiology 02/01/22 Blood Culture - Final, Complete NO GROWTH AFTER 5 DAYS 02/01/22 Urine Culture - Final, Complete Medications Current Medications Fentanyl Citrate (Fentanyl 2ml Vial) 100 mcg STK-MED ONCE .ROUTE ; Start 02/01/22 at 16:27; Stop 02/01/22 at 16:27; Status DC Lorazepam (Ativan Inj) 2 mg STK-MED ONCE .ROUTE ; Start 02/01/22 at 16:27; Stop 02/01/22 at 16:27; Status DC Acetaminophen (Tylenol Supp) 650 mg 1X ONCE W[place] Last administered on 02/01/22at 17:08; Start 02/01/22 at 16:45; Stop 02/01/22 at 16:46; Status DC Amiodarone HCl 150 mg/Dextrose 103 ml @ 618 mls/hr 1X ONCE IV Last administered on 02/01/22at 16:55; Start 02/01/22 at 16:45; Stop 02/01/22 at 16:54; Status DC Amiodarone HCl 450 mg/Dextrose 259 ml @ 34.533 mls/ hr CONT PRN IV SEE I/O RECORD Last administered on 02/02/22at 00:46; Start 02/01/22 at 16:45; Stop 02/02/22 at 16:35; Status DC Fentanyl Citrate (Fentanyl 2ml Vial) 100 mcg 1X ONCE IVP Last administered on 02/01/22at 16:52; Start 02/01/22 at 16:45; Stop 02/01/22 at 16:49; Status DC Midazolam HCl 100 ml @ 0 mls/hr 1X ONCE IV ; Start 02/01/22 at 16:45; Stop 02/01/22 at 16:46; Status UNV Midazolam HCl (Versed) 5 mg 1X ONCE NS Last administered on 02/01/22at 16:51; Start 02/01/22 at 16:45; Stop 02/01/22 at 16:49; Status DC Midazolam HCl 100 ml @ 1 mls/hr 1X ONCE IV Last administered on 02/01/22at 17:29; Start 02/01/22 at 17:00; Stop 02/02/22 at 08:31; Status DC Ondansetron HCl (Zofran) 4 mg PRN Q6HRS PRN IVP NAUSEA/VOMITING; Start 02/01/22 at 17:30 Calcium Carbonate/ Glycine (Tums) 500 mg PRN Q3HRS PRN PO UPSET STOMACH; Start 02/01/22 at 17:30 Info (Non-Icu Electrolyte Protocol) 1 ea PRN DAILY PRN MC SEE COMMENTS; Start 02/01/22 at 17:30; Status Cancel Acetaminophen (Tylenol) 650 mg PRN Q6HRS PRN PO Headaches, Temp > 101.5F Last administered on 02/02/22at 05:23; Start 02/01/22 at 17:30 Senna/Docusate Sodium (Senna Plus) 1 tab BID PO Last administered on 02/06/22at 10:16; Start 02/01/22 at 21:00 Heparin Sodium (Porcine) (Heparin Sodium) 5,000 unit Q8HRS SQ Last administered on 02/02/22at 06:23; Start 02/01/22 at 22:00; Stop 02/02/22 at 11:31; Status DC Ondansetron HCl (Zofran) 4 mg PRN Q8HRS PRN IVP NAUSEA/VOMITING; Start 02/01/22 at 17:30; Stop 02/02/22 at 08:32; Status DC Fentanyl Citrate (Fentanyl 2ml Vial) 50 mcg PRN Q1HR PRN IVP PAIN; Start 02/01/22 at 17:30; Stop 02/02/22 at 08:31; Status DC Sodium Chloride 1,000 ml @ 100 mls/hr Q10H IV Last administered on 02/02/22at 13:30; Start 02/01/22 at 17:30; Stop 02/02/22 at 17:29; Status DC Acetaminophen (Tylenol) 650 mg PRN Q4HRS PRN PO FEVER > 100.3'F; Start 02/01/22 at 17:30; Stop 02/02/22 at 08:30; Status DC Etomidate (Amidate) 20 mg STK-MED ONCE IV ; Start 02/01/22 at 17:38; Stop 02/01/22 at 17:38; Status DC Succinylcholine Chloride (Anectine) 200 mg STK-MED ONCE .ROUTE ; Start 02/01/22 at 17:39; Stop 02/01/22 at 17:39; Status DC Cefepime HCl (Maxipime) 1 gm 1X ONCE IVP Last administered on 02/01/22at 21:27; Start 02/01/22 at 18:30; Stop 02/01/22 at 18:31; Status DC Vancomycin HCl 2 gm/Sodium Chloride 500 ml @ 250 mls/hr 1X ONCE IV Last administered on 02/01/22at 21:27; Start 02/01/22 at 18:30; Stop 02/01/22 at 20:29; Status DC Fentanyl Citrate 30 ml @ 2.5 mls/hr CONT PRN IV SEE PROTOCOL Last administered on 02/02/22at 14:53; Start 02/01/22 at 19:15; Stop 02/06/22 at 10:53; Status DC Midazolam HCl 100 ml @ 1 mls/hr CONT PRN IV SEE PROTOCOL Last administered on 02/02/22at 14:55; Start 02/01/22 at 19:15 Vecuronium Carnation (Norcuron Bolus) 6 mg PRN 1X PRN IV VENT INDUCTION; Start 02/01/22 at 19:15; Stop 02/02/22 at 09:18; Status DC Chlorhexidine Gluconate (Peridex) 15 ml BID MM Last administered on 02/04/22at 20:27; Start 02/01/22 at 21:00; Stop 02/05/22 at 07:18; Status DC Glycerin/ Hypromellose/ Polyethylene (Artificial Tears) 1 drop PRN Q1HR PRN OU DRY EYE Last administered on 02/06/22at 20:31; Start 02/01/22 at 19:15 Sodium Chloride 500 ml @ 500 mls/hr 1X PRN PRN IV SEE COMMENTS Last administered on 02/01/22at 19:00; Start 02/01/22 at 19:15 Atropine Sulfate (ATROPINE 0.5mg SYRINGE) 0.5 mg PRN Q5MIN PRN IV SEE COMMENTS; Start 02/01/22 at 19:15 Famotidine (Pepcid Vial) 20 mg BID IVP Last administered on 02/07/22at 08:12; Start 02/01/22 at 21:00 Magnesium Sulfate 50 ml @ 25 mls/hr 1X ONCE IV Last administered on 02/02/22at 05:21; Start 02/02/22 at 04:45; Stop 02/02/22 at 06:44; Status DC Potassium Chloride/Water 100 ml @ 100 mls/hr Q1H IV Last administered on 02/02/22at 08:09; Start 02/02/22 at 05:00; Stop 02/02/22 at 09:03; Status DC Potassium Chloride/Water 100 ml @ 100 mls/hr Q1H IV ; Start 02/02/22 at 08:30; Stop 02/02/22 at 12:29; Status UNV Potassium Chloride/Water 100 ml @ 100 mls/hr Q1H IV Last administered on 02/02/22at 12:00; Start 02/02/22 at 09:00; Stop 02/02/22 at 12:59; Status DC Ampicillin Sodium/ Sulbactam Sodium 3 gm/Sodium Chloride 100 ml @ 200 mls/hr Q6HRS IV Last administered on 02/02/22at 12:00; Start 02/02/22 at 12:00; Stop 02/02/22 at 18:49; Status DC Heparin Sodium/ Dextrose 250 ml @ 10 mls/hr CONT PRN IV PER PROTOCOL Last administered on 02/04/22at 00:31; Start 02/02/22 at 11:30; Stop 02/04/22 at 15:47; Status DC Heparin Sodium (Porcine) (Heparin Sodium) 3,300 unit PRN Q6HRS PRN IV FOR UFH LEVEL LESS THAN 0.2 Last administered on 02/03/22at 14:30; Start 02/02/22 at 11:30; Stop 02/04/22 at 15:47; Status DC Aspirin (Aspirin Chewable) 81 mg DAILYWBKFT PO Last administered on 02/07/22at 08:12; Start 02/03/22 at 08:00 Aspirin (Aspirin Chewable) 81 mg 1X ONCE PO Last administered on 02/02/22at 14:48; Start 02/02/22 at 11:30; Stop 02/02/22 at 11:32; Status DC Amiodarone HCl (Cordarone) 150 mg STK-MED ONCE .ROUTE ; Start 02/01/22 at 17:00; Stop 02/02/22 at 13:19; Status DC Amiodarone HCl 450 mg/Dextrose 259 ml @ 34.533 mls/ hr CONT PRN IV SEE I/O RECORD Last administered on 02/03/22at 10:24; Start 02/02/22 at 16:45; Stop 02/03/22 at 11:18; Status DC Ampicillin Sodium/ Sulbactam Sodium 3 gm/Dextrose 100 ml @ 200 mls/hr Q6HRS IV Last administered on 02/03/22at 05:32; Start 02/02/22 at 18:00; Stop 02/03/22 at 11:59; Status DC Sodium Chloride 1,000 ml @ 1,000 mls/hr 1X ONCE IV Last administered on 02/02/22at 20:01; Start 02/02/22 at 16:30; Stop 02/02/22 at 19:52; Status DC Sodium Chloride 1,000 ml @ 1,000 mls/hr 1X ONCE IV Last administered on 02/02/22at 20:19; Start 02/02/22 at 20:00; Stop 02/02/22 at 20:59; Status DC Ampicillin Sodium/ Sulbactam Sodium 3 gm/Dextrose 100 ml @ 200 mls/hr Q6HRS IV Last administered on 02/07/22at 13:00; Start 02/03/22 at 12:00 Potassium Bicarbonate (Potassium Effervescent Tablet) 40 meq 1X ONCE PEG Last administered on 02/03/22at 04:50; Start 02/03/22 at 04:15; Stop 02/03/22 at 04:19; Status DC Info (Icu Electrolyte Protocol) 1 ea CONT PRN PRN MC PER PROTOCOL; Start 02/03/22 at 04:15 Info (Anti-Coagulation Monitoring By Pharmacy) 1 each PRN DAILY PRN MC PER PROTOCOL Last administered on 02/04/22at 08:37; Start 02/03/22 at 09:00; Stop 02/04/22 at 15:48; Status DC Potassium Bicarbonate (Potassium Effervescent Tablet) 40 meq 1X ONCE PEG Last administered on 02/03/22at 11:46; Start 02/03/22 at 11:15; Stop 02/03/22 at 11:19; Status DC Amiodarone HCl (Cordarone) 400 mg DAILY PO Last administered on 02/07/22at 08:12; Start 02/04/22 at 09:00; Stop 02/07/22 at 09:21; Status DC Metoprolol Tartrate (Lopressor) 12.5 mg BID PO Last administered on 02/05/22at 07:37; Start 02/03/22 at 12:00; Stop 02/05/22 at 10:05; Status DC Potassium Bicarbonate (Potassium Effervescent Tablet) 40 meq 1X ONCE FT Last administered on 02/04/22at 09:45; Start 02/04/22 at 09:30; Stop 02/04/22 at 09:31; Status DC Iodixanol (Visipaque 320) 100 ml STK-MED ONCE .ROUTE ; Start 02/04/22 at 13:54; Stop 02/04/22 at 13:54; Status DC Heparin Sodium/ Sodium Chloride 500 ml @ As Directed STK-MED ONCE .ROUTE ; Start 02/04/22 at 13:54; Stop 02/04/22 at 13:54; Status DC Lidocaine HCl (Lidocaine 1% 20ml Vial) 20 ml STK-MED ONCE .ROUTE ; Start 02/04/22 at 14:06; Stop 02/04/22 at 14:07; Status DC Heparin Sodium/ Sodium Chloride 1,000 ml @ As Directed STK-MED ONCE .ROUTE ; Start 02/04/22 at 14:07; Stop 02/04/22 at 14:07; Status DC Midazolam HCl (Versed) 2 mg STK-MED ONCE .ROUTE ; Start 02/04/22 at 14:13; Stop 02/04/22 at 14:13; Status DC Heparin Sodium (Porcine) (Heparin Sodium) 10,000 unit STK-MED ONCE .ROUTE ; Start 02/04/22 at 14:13; Stop 02/04/22 at 14:13; Status DC Verapamil HCl (Verapamil) 5 mg STK-MED ONCE .ROUTE ; Start 02/04/22 at 14:13; Stop 02/04/22 at 14:13; Status DC Nitroglycerin (Nitroglycerin) 200 mcg STK-MED ONCE .ROUTE ; Start 02/04/22 at 14:13; Stop 02/04/22 at 14:13; Status DC Fentanyl Citrate (Fentanyl 2ml Vial) 100 mcg STK-MED ONCE .ROUTE ; Start 02/04/22 at 14:13; Stop 02/04/22 at 14:14; Status DC Lidocaine HCl (Xylocaine-Mpf 1% 2ml Vial) 2 ml STK-MED ONCE .ROUTE ; Start 02/04/22 at 14:18; Stop 02/04/22 at 14:18; Status DC Iodixanol (Visipaque 320) 100 ml STK-MED ONCE .ROUTE ; Start 02/04/22 at 14:22; Stop 02/04/22 at 14:22; Status DC Nitroglycerin (Nitroglycerin) 200 mcg 1X ONCE IART ; Start 02/04/22 at 14:30; Stop 02/04/22 at 14:40; Status DC Verapamil HCl (Verapamil) 2.5 mg 1X ONCE IART ; Start 02/04/22 at 14:30; Stop 02/04/22 at 14:40; Status DC Heparin Sodium (Porcine) (Heparin Sodium) 2,500 unit 1X ONCE IART ; Start 02/04/22 at 14:30; Stop 02/04/22 at 14:40; Status DC Heparin Sodium/ Sodium Chloride (HEPARIN for ARTERIAL LINE FLUSH) 1,000 unit 1X ONCE IART Last administered on 02/04/22at 14:30; Start 02/04/22 at 14:30; Stop 02/04/22 at 14:40; Status DC Heparin Sodium/ Sodium Chloride (HEPARIN for ARTERIAL LINE FLUSH) 1,000 unit 1X ONCE IART Last administered on 02/04/22at 14:30; Start 02/04/22 at 14:30; Stop 02/04/22 at 14:40; Status DC Iodixanol (Visipaque 320) 100 ml 1X ONCE IART Last administered on 02/04/22at 14:50; Start 02/04/22 at 14:30; Stop 02/04/22 at 14:40; Status DC Lidocaine HCl (Lidocaine 1% 20ml Vial) 20 ml 1X ONCE INJ ; Start 02/04/22 at 14:30; Stop 02/04/22 at 14:40; Status DC Verapamil HCl (Verapamil) 5 mg STK-MED ONCE .ROUTE ; Start 02/04/22 at 14:30; Stop 02/05/22 at 08:30; Status DC Lisinopril (Prinivil) 5 mg DAILY PO Last administered on 02/05/22at 09:37; Start 02/05/22 at 10:00; Stop 02/05/22 at 10:10; Status DC Metoprolol Tartrate (Lopressor) 25 mg BID PO Last administered on 02/07/22at 08:11; Start 02/05/22 at 21:00 Sacubitril/ Valsartan (Entresto 24 Mg-26 Mg) 1 tab BID PO Last administered on 02/07/22at 08:11; Start 02/06/22 at 09:00 Enoxaparin Sodium (Lovenox 40mg Syringe) 40 mg Q12HR SQ Last administered on 02/07/22at 08:12; Start 02/05/22 at 11:30 Amiodarone HCl (Cordarone) 200 mg DAILY PO ; Start 02/08/22 at 09:00 Atropine Sulfate (Isopto Atropine) 1 drop PRN Q2HR PRN SL SECRETIONS Last administered on 02/07/22at 16:49; Start 02/07/22 at 14:45 Vitals/I & O Vital Sign - Last 24 Hours 02/06/22 02/06/22 02/06/22 02/06/22 17:00 18:00 19:00 19:52 Temp 99.5 99.5 Resp 19 17 16 B/P (MAP) 160/86 165/92 173/89 Pulse Ox 99 99 99 99 O2 Delivery Ventilator Ventilator Ventilator Ventilator 02/06/22 02/06/22 02/06/22 02/06/22 19:54 20:00 20:30 20:31 Temp 100.1 100.1 Pulse 80 81 82 B/P (MAP) 151/88 174/89 174/89 Pulse Ox 99 O2 Delivery Mechanical Ventilator Ventilator 02/06/22 02/06/22 02/06/22 02/06/22 21:00 22:00 22:00 23:00 Pulse 76 71 74 Resp 17 17 17 B/P (MAP) 162/96 157/88 163/93 Pulse Ox 99 99 99 99 O2 Delivery Ventilator Ventilator Ventilator Ventilator 02/07/22 02/07/22 02/07/22 02/07/22 00:00 00:00 00:00 01:00 Temp 99.3 99.3 Pulse 74 76 Resp 18 19 B/P (MAP) 162/86 169/90 Pulse Ox 99 99 99 O2 Delivery Ventilator Mechanical Ventilator Ventilator Ventilator 02/07/22 02/07/22 02/07/22 02/07/22 02:00 03:00 03:33 04:00 Temp 99.0 99.0 Pulse 74 72 76 Resp 18 18 20 B/P (MAP) 155/98 162/94 173/98 Pulse Ox 98 99 99 100 O2 Delivery Ventilator Ventilator Ventilator Ventilator 02/07/22 02/07/22 02/07/22 02/07/22 04:00 05:00 05:00 06:00 Pulse 76 77 Resp 18 19 B/P (MAP) 168/98 157/95 Pulse Ox 98 99 99 O2 Delivery Mechanical Ventilator Ventilator Ventilator Ventilator 02/07/22 02/07/22 02/07/22 02/07/22 07:00 07:08 08:00 08:00 Temp 99.0 99.0 Pulse 77 77 Resp 19 19 B/P (MAP) 157/95 156/86 Pulse Ox 99 98 99 O2 Delivery Ventilator Ventilator Mechanical Ventilator Ventilator 02/07/22 02/07/22 02/07/22 02/07/22 08:11 08:11 08:12 09:00 Pulse 77 77 77 64 Resp 19 B/P (MAP) 157/95 157/95 157/95 162/89 Pulse Ox 99 O2 Delivery Ventilator 02/07/22 02/07/22 02/07/22 02/07/22 09:16 10:00 10:53 11:00 Pulse 64 71 Resp 19 19 B/P (MAP) 145/84 152/78 Pulse Ox 97 99 99 99 O2 Delivery Ventilator Ventilator Ventilator Ventilator 02/07/22 02/07/22 02/07/22 02/07/22 12:00 12:00 12:15 13:00 Temp 99.0 99.0 Pulse 76 71 Resp 20 19 B/P (MAP) 146/86 152/78 Pulse Ox 99 98 99 O2 Delivery Mechanical Ventilator Ventilator Ventilator Ventilator 02/07/22 02/07/22 02/07/22 14:00 15:10 16:29 Pulse 71 Resp 19 B/P (MAP) 152/96 Pulse Ox 99 98 99 O2 Delivery Ventilator Ventilator Ventilator Intake and Output 02/06/22 02/06/22 02/07/22 15:00 23:00 07:00 Intake Total 200 ml 1212 ml 888 ml Output Total 625 ml 665 ml 455 ml Balance -425 ml 547 ml 433 ml Justicifation of Admission Dx: Justifications for Admission: Justification of Admission Dx: Yes EVELINE BRADY MD Feb 07, 2022 16:54
[2022-02-08] VITALS (24 sets, daily range): BP systolic 121–163; BP diastolic 65–84
[2022-02-08] MEDS: AMPICILLIN/SULBACTAM 3 GM in IV DEXTROSE 5% 100ML 100 ML IV SCH ×4 (00:04→20:00)
[2022-02-08 06:36] LABS: BASO # 0.1 x10^3/uL (0.0-0.2); BASO % 1 % (0-3); EOS # 0.3 x10^3/uL (0.0-0.7); EOS % 3 % (0-3); HEMOGLOBIN 10.7 g/dL (12.0-15.5); LYMPH # 2.1 x10^3/uL (1.0-4.8); LYMPH % 17 % (24-48); MEAN CORPUSCULAR HEMOGLOBIN 29 pg (25-35); MEAN CORPUSCULAR HGB CONC 32 g/dL (31-37); MEAN CORPUSCULAR VOLUME 90 fL (79-100); MONO # 1.8 x10^3/uL (0.0-1.1); MONO % 16 % (0-9); NEUT # 7.6 x10^3/uL (1.8-7.7); NEUT % 64 % (31-73); PLATELET COUNT 412 x10^3/uL (140-400); RED BLOOD COUNT 3.67 x10^6/uL (3.50-5.40); RED CELL DISTRIBUTION WIDTH 14.8 % (11.5-14.5); WHITE BLOOD COUNT 11.9 x10^3/uL (4.0-11.0)
[2022-02-08 06:44] LABS: ALBUMIN 2.3 g/dL (3.4-5.0); ALBUMIN/GLOBULIN RATIO 0.5 (1.0-1.7); CALCIUM 8.6 mg/dL (8.5-10.1); CREATININE 0.8 mg/dL (0.6-1.0); GFR 74.5; POTASSIUM 3.5 mmol/L (3.5-5.1); TOTAL BILIRUBIN 0.4 mg/dL (0.2-1.0); TOTAL PROTEIN 6.5 g/dL (6.4-8.2)
[2022-02-08 07:36] LABS: BASE EXCESS ABG 5 mmol/L (-3-3); HCO3 ABG 28 mmol/L (21-28); PCO2 ABG 37 mmHg (35-46); PO2 ABG 107 mmHg (75-108); SAT O2 ABG 98 % (92-99)
[2022-02-08 07:39] LABS: FIO2 ABG 40
--- NOTE | 2022-02-08 09:10 | PDOC ---
PROGRESS NOTES Date of Service DATE: 02/08/22 TIME: 09:08 Assessment Problems Medical Problems: (1) Fever Status: Acute Anoxic encephalopathy from cardiopulmonary arrest-a follow-up CT scan of the brain performed February 06, 2022 revealed a distinct change from the previous study. There was loss of darnell-white junction differentiation and there was sulcal ablation diffusely suggesting diffuse cerebral edema. This would be consistent with a severe anoxic injury. Prognosis for meaningful recovery is extremely poor. The neurologic examination does not show any improvement whatsoever. Plan Dr. Humphries spoke to the family yesterday and I understand and they are drawing care today Subjective None Objective Vital Signs Date Time Temp Pulse Resp B/P (MAP) Pulse Ox O2 Delivery O2 Flow Rate FiO2 02/08/22 07:11 99 Ventilator 02/08/22 06:00 73 18 131/74 02/08/22 04:00 98.8 98.8 Intake and Output0 02/08/22 07:00 Intake Total 1000 ml Output Total 1310 ml Balance -310 ml Tube Feeding 600 ml Other 400 ml Output Urine Total 1310 ml Gastric Drainage Total 0 ml PHYSICAL EXAM Intubated on ventilator, not sedated PERRL weakly. EOMI, roving eyes CN: no focal findings. Eyes open and she blinks Muscle tone: normal. Muscle strength: Slight extensor posturing DTR: 1+ Plantar reflex: Silent Gait: not examined in bed. Sensory exam: Not cooperative Cerebellar: Not cooperative Review of Relevant I have reviewed the following items alf (where applicable) has been applied. Labs Laboratory Tests Test 02/07/22 07:12 02/08/22 06:00 02/08/22 07:10 O2 Saturation 98 % (92-99) 98 % (92-99) Arterial Blood pH 7.51 (7.35-7.45) 7.50 (7.35-7.45) Arterial Blood pCO2 at Patient Temp 35 mmHg (35-46) 37 mmHg (35-46) Arterial Blood pO2 at Patient Temp 104 mmHg (75-108) 107 mmHg (75-108) Arterial Blood HCO3 27 mmol/L (21-28) 28 mmol/L (21-28) Arterial Blood Base Excess 4 mmol/L (-3-3) 5 mmol/L (-3-3) FiO2 40% vent 40 White Blood Count 11.9 x10^3/uL (4.0-11.0) Red Blood Count 3.67 x10^6/uL (3.50-5.40) Hemoglobin 10.7 g/dL (12.0-15.5) Hematocrit 33.0 % (36.0-47.0) Mean Corpuscular Volume 90 fL (79-100) Mean Corpuscular Hemoglobin 29 pg (25-35) Mean Corpuscular Hemoglobin Concent 32 g/dL (31-37) Red Cell Distribution Width 14.8 % (11.5-14.5) Platelet Count 412 x10^3/uL (140-400) Neutrophils (%) (Auto) 64 % (31-73) Lymphocytes (%) (Auto) 17 % (24-48) Monocytes (%) (Auto) 16 % (0-9) Eosinophils (%) (Auto) 3 % (0-3) Basophils (%) (Auto) 1 % (0-3) Neutrophils # (Auto) 7.6 x10^3/uL (1.8-7.7) Lymphocytes # (Auto) 2.1 x10^3/uL (1.0-4.8) Monocytes # (Auto) 1.8 x10^3/uL (0.0-1.1) Eosinophils # (Auto) 0.3 x10^3/uL (0.0-0.7) Basophils # (Auto) 0.1 x10^3/uL (0.0-0.2) Sodium Level 140 mmol/L (136-145) Potassium Level 3.5 mmol/L (3.5-5.1) Chloride Level 105 mmol/L (98-107) Carbon Dioxide Level 28 mmol/L (21-32) Anion Gap 7 (6-14) Blood Urea Nitrogen 23 mg/dL (7-20) Creatinine 0.8 mg/dL (0.6-1.0) Estimated GFR (Cockcroft-Gault) 74.5 BUN/Creatinine Ratio 29 (6-20) Glucose Level 123 mg/dL (70-99) Calcium Level 8.6 mg/dL (8.5-10.1) Total Bilirubin 0.4 mg/dL (0.2-1.0) Aspartate Amino Transf (AST/SGOT) 57 U/L (15-37) Alanine Aminotransferase (ALT/SGPT) 64 U/L (14-59) Alkaline Phosphatase 134 U/L (46-116) Total Protein 6.5 g/dL (6.4-8.2) Albumin 2.3 g/dL (3.4-5.0) Albumin/Globulin Ratio 0.5 (1.0-1.7) Laboratory Tests Test 02/08/22 06:00 02/08/22 07:10 White Blood Count 11.9 x10^3/uL (4.0-11.0) Red Blood Count 3.67 x10^6/uL (3.50-5.40) Hemoglobin 10.7 g/dL (12.0-15.5) Hematocrit 33.0 % (36.0-47.0) Mean Corpuscular Volume 90 fL (79-100) Mean Corpuscular Hemoglobin 29 pg (25-35) Mean Corpuscular Hemoglobin Concent 32 g/dL (31-37) Red Cell Distribution Width 14.8 % (11.5-14.5) Platelet Count 412 x10^3/uL (140-400) Neutrophils (%) (Auto) 64 % (31-73) Lymphocytes (%) (Auto) 17 % (24-48) Monocytes (%) (Auto) 16 % (0-9) Eosinophils (%) (Auto) 3 % (0-3) Basophils (%) (Auto) 1 % (0-3) Neutrophils # (Auto) 7.6 x10^3/uL (1.8-7.7) Lymphocytes # (Auto) 2.1 x10^3/uL (1.0-4.8) Monocytes # (Auto) 1.8 x10^3/uL (0.0-1.1) Eosinophils # (Auto) 0.3 x10^3/uL (0.0-0.7) Basophils # (Auto) 0.1 x10^3/uL (0.0-0.2) Sodium Level 140 mmol/L (136-145) Potassium Level 3.5 mmol/L (3.5-5.1) Chloride Level 105 mmol/L (98-107) Carbon Dioxide Level 28 mmol/L (21-32) Anion Gap 7 (6-14) Blood Urea Nitrogen 23 mg/dL (7-20) Creatinine 0.8 mg/dL (0.6-1.0) Estimated GFR (Cockcroft-Gault) 74.5 BUN/Creatinine Ratio 29 (6-20) Glucose Level 123 mg/dL (70-99) Calcium Level 8.6 mg/dL (8.5-10.1) Total Bilirubin 0.4 mg/dL (0.2-1.0) Aspartate Amino Transf (AST/SGOT) 57 U/L (15-37) Alanine Aminotransferase (ALT/SGPT) 64 U/L (14-59) Alkaline Phosphatase 134 U/L (46-116) Total Protein 6.5 g/dL (6.4-8.2) Albumin 2.3 g/dL (3.4-5.0) Albumin/Globulin Ratio 0.5 (1.0-1.7) O2 Saturation 98 % (92-99) Arterial Blood pH 7.50 (7.35-7.45) Arterial Blood pCO2 at Patient Temp 37 mmHg (35-46) Arterial Blood pO2 at Patient Temp 107 mmHg (75-108) Arterial Blood HCO3 28 mmol/L (21-28) Arterial Blood Base Excess 5 mmol/L (-3-3) FiO2 40 Microbiology 02/01/22 Blood Culture - Final, Complete NO GROWTH AFTER 5 DAYS 02/01/22 Urine Culture - Final, Complete Medications Current Medications Fentanyl Citrate (Fentanyl 2ml Vial) 100 mcg STK-MED ONCE .ROUTE ; Start 02/01/22 at 16:27; Stop 02/01/22 at 16:27; Status DC Lorazepam (Ativan Inj) 2 mg STK-MED ONCE .ROUTE ; Start 02/01/22 at 16:27; Stop 02/01/22 at 16:27; Status DC Acetaminophen (Tylenol Supp) 650 mg 1X ONCE [place] Last administered on 02/01/22at 17:08; Start 02/01/22 at 16:45; Stop 02/01/22 at 16:46; Status DC Amiodarone HCl 150 mg/Dextrose 103 ml @ 618 mls/hr 1X ONCE IV Last administered on 02/01/22at 16:55; Start 02/01/22 at 16:45; Stop 02/01/22 at 16:54; Status DC Amiodarone HCl 450 mg/Dextrose 259 ml @ 34.533 mls/ hr CONT PRN IV SEE I/O RECORD Last administered on 02/02/22at 00:46; Start 02/01/22 at 16:45; Stop 02/02/22 at 16:35; Status DC Fentanyl Citrate (Fentanyl 2ml Vial) 100 mcg 1X ONCE IVP Last administered on 02/01/22at 16:52; Start 02/01/22 at 16:45; Stop 02/01/22 at 16:49; Status DC Midazolam HCl 100 ml @ 0 mls/hr 1X ONCE IV ; Start 02/01/22 at 16:45; Stop 02/01/22 at 16:46; Status UNV Midazolam HCl (Versed) 5 mg 1X ONCE NS Last administered on 02/01/22at 16:51; Start 02/01/22 at 16:45; Stop 02/01/22 at 16:49; Status DC Midazolam HCl 100 ml @ 1 mls/hr 1X ONCE IV Last administered on 02/01/22at 17:29; Start 02/01/22 at 17:00; Stop 02/02/22 at 08:31; Status DC Ondansetron HCl (Zofran) 4 mg PRN Q6HRS PRN IVP NAUSEA/VOMITING; Start 02/01/22 at 17:30 Calcium Carbonate/ Glycine (Tums) 500 mg PRN Q3HRS PRN PO UPSET STOMACH; Start 02/01/22 at 17:30 Info (Non-Icu Electrolyte Protocol) 1 ea PRN DAILY PRN MC SEE COMMENTS; Start 02/01/22 at 17:30; Status Cancel Acetaminophen (Tylenol) 650 mg PRN Q6HRS PRN PO Headaches, Temp > 101.5F Last administered on 02/02/22at 05:23; Start 02/01/22 at 17:30 Senna/Docusate Sodium (Senna Plus) 1 tab BID PO Last administered on 02/06/22at 10:16; Start 02/01/22 at 21:00 Heparin Sodium (Porcine) (Heparin Sodium) 5,000 unit Q8HRS SQ Last administered on 02/02/22at 06:23; Start 02/01/22 at 22:00; Stop 02/02/22 at 11:31; Status DC Ondansetron HCl (Zofran) 4 mg PRN Q8HRS PRN IVP NAUSEA/VOMITING; Start 02/01/22 at 17:30; Stop 02/02/22 at 08:32; Status DC Fentanyl Citrate (Fentanyl 2ml Vial) 50 mcg PRN Q1HR PRN IVP PAIN; Start 02/01/22 at 17:30; Stop 02/02/22 at 08:31; Status DC Sodium Chloride 1,000 ml @ 100 mls/hr Q10H IV Last administered on 02/02/22at 13:30; Start 02/01/22 at 17:30; Stop 02/02/22 at 17:29; Status DC Acetaminophen (Tylenol) 650 mg PRN Q4HRS PRN PO FEVER > 100.3'F; Start 02/01/22 at 17:30; Stop 02/02/22 at 08:30; Status DC Etomidate (Amidate) 20 mg STK-MED ONCE IV ; Start 02/01/22 at 17:38; Stop 02/01/22 at 17:38; Status DC Succinylcholine Chloride (Anectine) 200 mg STK-MED ONCE .ROUTE ; Start 02/01/22 at 17:39; Stop 02/01/22 at 17:39; Status DC Cefepime HCl (Maxipime) 1 gm 1X ONCE IVP Last administered on 02/01/22at 21:27; Start 02/01/22 at 18:30; Stop 02/01/22 at 18:31; Status DC Vancomycin HCl 2 gm/Sodium Chloride 500 ml @ 250 mls/hr 1X ONCE IV Last administered on 02/01/22at 21:27; Start 02/01/22 at 18:30; Stop 02/01/22 at 20:29; Status DC Fentanyl Citrate 30 ml @ 2.5 mls/hr CONT PRN IV SEE PROTOCOL Last administered on 02/02/22at 14:53; Start 02/01/22 at 19:15; Stop 02/06/22 at 10:53; Status DC Midazolam HCl 100 ml @ 1 mls/hr CONT PRN IV SEE PROTOCOL Last administered on 02/02/22at 14:55; Start 02/01/22 at 19:15 Vecuronium [place] (Norcuron Bolus) 6 mg PRN 1X PRN IV VENT INDUCTION; Start 02/01/22 at 19:15; Stop 02/02/22 at 09:18; Status DC Chlorhexidine Gluconate (Peridex) 15 ml BID MM Last administered on 02/04/22at 20:27; Start 02/01/22 at 21:00; Stop 02/05/22 at 07:18; Status DC Glycerin/ Hypromellose/ Polyethylene (Artificial Tears) 1 drop PRN Q1HR PRN OU DRY EYE Last administered on 02/06/22at 20:31; Start 02/01/22 at 19:15 Sodium Chloride 500 ml @ 500 mls/hr 1X PRN PRN IV SEE COMMENTS Last a dministered on 02/01/22at 19:00; Start 02/01/22 at 19:15 Atropine Sulfate (ATROPINE 0.5mg SYRINGE) 0.5 mg PRN Q5MIN PRN IV SEE COMMENTS; Start 02/01/22 at 19:15 Famotidine (Pepcid Vial) 20 mg BID IVP Last administered on 02/07/22at 21:47; Start 02/01/22 at 21:00 Magnesium Sulfate 50 ml @ 25 mls/hr 1X ONCE IV Last administered on 02/02/22at 05:21; Start 02/02/22 at 04:45; Stop 02/02/22 at 06:44; Status DC Potassium Chloride/Water 100 ml @ 100 mls/hr Q1H IV Last administered on 02/02/22at 08:09; Start 02/02/22 at 05:00; Stop 02/02/22 at 09:03; Status DC Potassium Chloride/Water 100 ml @ 100 mls/hr Q1H IV ; Start 02/02/22 at 08:30; Stop 02/02/22 at 12:29; Status UNV Potassium Chloride/Water 100 ml @ 100 mls/hr Q1H IV Last administered on 02/02/22at 12:00; Start 02/02/22 at 09:00; Stop 02/02/22 at 12:59; Status DC Ampicillin Sodium/ Sulbactam Sodium 3 gm/Sodium Chloride 100 ml @ 200 mls/hr Q6HRS IV Last administered on 02/02/22at 12:00; Start 02/02/22 at 12:00; Stop 02/02/22 at 18:49; Status DC Heparin Sodium/ Dextrose 250 ml @ 10 mls/hr CONT PRN IV PER PROTOCOL Last administered on 02/04/22at 00:31; Start 02/02/22 at 11:30; Stop 02/04/22 at 15:47; Status DC Heparin Sodium (Porcine) (Heparin Sodium) 3,300 unit PRN Q6HRS PRN IV FOR UFH LEVEL LESS THAN 0.2 Last administered on 02/03/22at 14:30; Start 02/02/22 at 11:30; Stop 02/04/22 at 15:47; Status DC Aspirin (Aspirin Chewable) 81 mg DAILYWBKFT PO Last administered on 02/07/22at 08:12; Start 02/03/22 at 08:00 Aspirin (Aspirin Chewable) 81 mg 1X ONCE PO Last administered on 02/02/22at 14:48; Start 02/02/22 at 11:30; Stop 02/02/22 at 11:32; Status DC Amiodarone HCl (Cordarone) 150 mg STK-MED ONCE .ROUTE ; Start 02/01/22 at 17:00; Stop 02/02/22 at 13:19; Status DC Amiodarone HCl 450 mg/Dextrose 259 ml @ 34.533 mls/ hr CONT PRN IV SEE I/O RECORD Last administered on 02/03/22at 10:24; Start 02/02/22 at 16:45; Stop 02/03/22 at 11:18; Status DC Ampicillin Sodium/ Sulbactam Sodium 3 gm/Dextrose 100 ml @ 200 mls/hr Q6HRS IV Last administered on 02/03/22at 05:32; Start 02/02/22 at 18:00; Stop 02/03/22 at 11:59; Status DC Sodium Chloride 1,000 ml @ 1,000 mls/hr 1X ONCE IV Last administered on 02/02/22at 20:01; Start 02/02/22 at 16:30; Stop 02/02/22 at 19:52; Status DC Sodium Chloride 1,000 ml @ 1,000 mls/hr 1X ONCE IV Last administered on 02/02/22at 20:19; Start 02/02/22 at 20:00; Stop 02/02/22 at 20:59; Status DC Ampicillin Sodium/ Sulbactam Sodium 3 gm/Dextrose 100 ml @ 200 mls/hr Q6HRS IV Last administered on 02/08/22at 05:44; Start 02/03/22 at 12:00 Potassium Bicarbonate (Potassium Effervescent Tablet) 40 meq 1X ONCE PEG Last administered on 02/03/22at 04:50; Start 02/03/22 at 04:15; Stop 02/03/22 at 04:19; Status DC Info (Icu Electrolyte Protocol) 1 ea CONT PRN PRN MC PER PROTOCOL; Start 02/03/22 at 04:15 Info (Anti-Coagulation Monitoring By Pharmacy) 1 each PRN DAILY PRN MC PER PROTOCOL Last administered on 02/04/22at 08:37; Start 02/03/22 at 09:00; Stop 02/04/22 at 15:48; Status DC Potassium Bicarbonate (Potassium Effervescent Tablet) 40 meq 1X ONCE PEG Last administered on 02/03/22at 11:46; Start 02/03/22 at 11:15; Stop 02/03/22 at 11:19; Status DC Amiodarone HCl (Cordarone) 400 mg DAILY PO Last administered on 02/07/22at 08:12; Start 02/04/22 at 09:00; Stop 02/07/22 at 09:21; Status DC Metoprolol Tartrate (Lopressor) 12.5 mg BID PO Last administered on 02/05/22at 07:37; Start 02/03/22 at 12:00; Stop 02/05/22 at 10:05; Status DC Potassium Bicarbonate (Potassium Effervescent Tablet) 40 meq 1X ONCE FT Last administered on 02/04/22at 09:45; Start 02/04/22 at 09:30; Stop 02/04/22 at 09:31; Status DC Iodixanol (Visipaque 320) 100 ml STK-MED ONCE .ROUTE ; Start 02/04/22 at 13:54; Stop 02/04/22 at 13:54; Status DC Heparin Sodium/ Sodium Chloride 500 ml @ As Directed STK-MED ONCE .ROUTE ; Start 02/04/22 at 13:54; Stop 02/04/22 at 13:54; Status DC Lidocaine HCl (Lidocaine 1% 20ml Vial) 20 ml STK-MED ONCE .ROUTE ; Start at 14:06; Stop 02/04/22 at 14:07; Status DC Heparin Sodium/ Sodium Chloride 1,000 ml @ As Directed STK-MED ONCE .ROUTE ; Start 02/04/22 at 14:07; Stop 02/04/22 at 14:07; Status DC Midazolam HCl (Versed) 2 mg STK-MED ONCE .ROUTE ; Start 02/04/22 at 14:13; Stop 02/04/22 at 14:13; Status DC Heparin Sodium (Porcine) (Heparin Sodium) 10,000 unit STK-MED ONCE .ROUTE ; Start 02/04/22 at 14:13; Stop 02/04/22 at 14:13; Status DC Verapamil HCl (Verapamil) 5 mg STK-MED ONCE .ROUTE ; Start 02/04/22 at 14:13; Stop 02/04/22 at 14:13; Status DC Nitroglycerin (Nitroglycerin) 200 mcg STK-MED ONCE .ROUTE ; Start 02/04/22 at 14:13; Stop 02/04/22 at 14:13; Status DC Fentanyl Citrate (Fentanyl 2ml Vial) 100 mcg STK-MED ONCE .ROUTE ; Start 02/04/22 at 14:13; Stop 02/04/22 at 14:14; Status DC Lidocaine HCl (Xylocaine-Mpf 1% 2ml Vial) 2 ml STK-MED ONCE .ROUTE ; Start 02/04/22 at 14:18; Stop 02/04/22 at 14:18; Status DC Iodixanol (Visipaque 320) 100 ml STK-MED ONCE .ROUTE ; Start 02/04/22 at 14:22; Stop 02/04/22 at 14:22; Status DC Nitroglycerin (Nitroglycerin) 200 mcg 1X ONCE IART ; Start 02/04/22 at 14:30; Stop 02/04/22 at 14:40; Status DC Verapamil HCl (Verapamil) 2.5 mg 1X ONCE IART ; Start 02/04/22 at 14:30; Stop 02/04/22 at 14:40; Status DC Heparin Sodium (Porcine) (Heparin Sodium) 2,500 unit 1X ONCE IART ; Start 02/04/22 at 14:30; Stop 02/04/22 at 14:40; Status DC Heparin Sodium/ Sodium Chloride (HEPARIN for ARTERIAL LINE FLUSH) 1,000 unit 1X ONCE IART Last administered on 02/04/22at 14:30; Start 02/04/22 at 14:30; Stop 02/04/22 at 14:40; Status DC Heparin Sodium/ Sodium Chloride (HEPARIN for ARTERIAL LINE FLUSH) 1,000 unit 1X ONCE IART Last administered on 02/04/22at 14:30; Start 02/04/22 at 14:30; Stop 02/04/22 at 14:40; Status DC Iodixanol (Visipaque 320) 100 ml 1X ONCE IART Last administered on 02/04/22at 14:50; Start 02/04/22 at 14:30; Stop 02/04/22 at 14:40; Status DC Lidocaine HCl (Lidocaine 1% 20ml Vial) 20 ml 1X ONCE INJ ; Start 02/04/22 at 14:30; Stop 02/04/22 at 14:40; Status DC Verapamil HCl (Verapamil) 5 mg STK-MED ONCE .ROUTE ; Start 02/04/22 at 14:30; Stop 02/05/22 at 08:30; Status DC Lisinopril (Prinivil) 5 mg DAILY PO Last administered on 02/05/22at 09:37; Start 02/05/22 at 10:00; Stop 02/05/22 at 10:10; Status DC Metoprolol Tartrate (Lopressor) 25 mg BID PO Last administered on 02/07/22at 21:49; Start 02/05/22 at 21:00 Sacubitril/ Valsartan (Entresto 24 Mg-26 Mg) 1 tab BID PO Last administered on 02/07/22at 21:48; Start 02/06/22 at 09:00 Enoxaparin Sodium (Lovenox 40mg Syringe) 40 mg Q12HR SQ Last administered on 02/07/22at 21:48; Start 02/05/22 at 11:30 Amiodarone HCl (Cordarone) 200 mg DAILY PO ; Start 02/08/22 at 09:00 Atropine Sulfate (Isopto Atropine) 1 drop PRN Q2HR PRN SL SECRETIONS Last administered on 02/07/22at 16:49; Start 02/07/22 at 14:45 Vitals/I & O Vital Sign - Last 24 Hours 02/07/22 02/07/22 02/07/22 02/07/22 09:16 10:00 10:53 11:00 Pulse 64 71 Resp 19 19 B/P (MAP) 145/84 152/78 Pulse Ox 97 99 99 99 O2 Delivery Ventilator Ventilator Ventilator Ventilator 02/07/22 02/07/22 02/07/22 02/07/22 12:00 12:00 12:15 13:00 Temp 99.0 99.0 Pulse 76 71 Resp 20 19 B/P (MAP) 146/86 152/78 Pulse Ox 99 98 99 O2 Delivery Mechanical Ventilator Ventilator Ventilator Ventilator 02/07/22 02/07/22 02/07/22 02/07/22 14:00 15:00 15:10 16:00 Temp 100.0 100.0 Pulse 71 71 76 Resp 19 19 20 B/P (MAP) 152/96 152/96 146/86 Pulse Ox 99 99 98 99 O2 Delivery Ventilator Ventilator Ventilator Ventilator 02/07/22 02/07/22 02/07/22 02/07/22 16:00 16:29 17:00 18:00 Pulse 71 71 Resp 19 19 B/P (MAP) 152/96 152/96 Pulse Ox 99 99 99 O2 Delivery Mechanical Ventilator Ventilator Ventilator Ventilator 02/07/22 02/07/22 02/07/22 02/07/22 19:00 20:00 20:00 20:14 Temp 98.8 98.8 Pulse 85 82 Resp 15 18 B/P (MAP) 140/80 147/73 Pulse Ox 99 99 99 O2 Delivery Ventilator Mechanical Ventilator Ventilator Ventilator 02/07/22 02/07/22 02/07/22 02/07/22 21:00 21:48 21:49 22:00 Pulse 79 79 79 80 Resp 18 17 B/P (MAP) 157/75 157/75 157/75 145/56 Pulse Ox 99 98 O2 Delivery Ventilator Ventilator 02/07/22 02/07/22 02/07/22 02/08/22 23:00 23:01 23:59 00:01 Temp 98.5 98.5 Pulse 70 74 Resp 18 18 B/P (MAP) 134/69 134/76 Pulse Ox 99 98 100 O2 Delivery Ventilator Ventilator Mechanical Ventilator Ventilator 02/08/22 02/08/22 02/08/22 02/08/22 00:50 01:00 02:00 02:35 Pulse 73 71 Resp 16 16 B/P (MAP) 121/69 125/65 Pulse Ox 98 99 99 98 O2 Delivery Ventilator Ventilator Ventilator Ventilator 02/08/22 02/08/22 02/08/22 02/08/22 03:00 04:00 04:00 05:00 Temp 98.8 98.8 Pulse 69 73 74 Resp 16 18 18 B/P (MAP) 122/69 132/72 139/71 Pulse Ox 99 99 98 O2 Delivery Ventilator Ventilator Mechanical Ventilator Ventilator 02/08/22 02/08/22 02/08/22 05:31 06:00 07:11 Pulse 73 Resp 18 B/P (MAP) 131/74 Pulse Ox 98 99 99 O2 Delivery Ventilator Ventilator Ventilator Intake and Output 02/07/22 02/07/22 02/08/22 15:00 23:00 07:00 Intake Total 200 ml 400 ml 400 ml Output Total 605 ml 420 ml 285 ml Balance -405 ml -20 ml [address] head without contrast dated 02/06/2022 4:12 PM Comparison: 02/01/2022 CLINICAL INDICATION: Cardiac arrest. Evaluate for anoxic injury. TECHNIQUE: Contiguous axial imaging of the head was performed from skull base to vertex. One or more of the following individualized dose reduction techniques were utilized for this examination: 1. Automated exposure control 2. Adjustment of the mA and/or kV according to patient size 3. Use of iterative reconstruction technique. FINDINGS: Ventricles and sulci are diffusely effaced, progressed from prior study. The ventricular caliber appears slightly smaller from prior exam. No midline shift o r mass effect. There is little darnell-white differentiation throughout. No hemorrhage or extra-axial collection. Mild patchy low density in the deep/subcortical periventricular white matter. Subtotal opacification of the left maxillary sinus and left ethmoid air cells and sphenoid sinuses with small air-fluid levels. Mastoid air cells are clear. No acute calvarial abnormality. Justicifation of Admission Dx: Justifications for Admission: Justification of Admission Dx: Yes BILLIE GRAHAM MD Feb 08, 2022 09:10
--- NOTE | 2022-02-08 10:09 | PDOC ---
[facility] [employer] PROGRESS NOTE Date of Service DOS: DATE: 02/08/22 TIME: 10:05 Chief Complaint Chief Complaint Acute hypoxic respiratory failure , possible aspiration probable anoxic brain injury Vfib/VTach cardiac arrest in field, Hypokalemia/hypomagnesemia acute renal failure concern for brain injury with arrest, better today , still sluggish, upward gaze, no meaningful following Morbid obesity, BMI 46 History of Present Illness History of Present Illness 02/08: Afebrile. Essentially no change. Family family had discussions to withdraw care given diagnosis of anoxic brain injury. This may happen today. Poor prognosis. 02/07, no sedation, mental status poor, not following family aware, and here a lot, neuro following likely brain injury 02/06 she was working against the vent per RN overnight, no purposeful movement, family hre, Neuro following poor prognosis discussed, cont supportive care in ICU, on vent Pulmonary following, still on vent e-lyte management, ICU protocol NO sedation cont antibiotics mult family here today Vitals/I&O Vitals/I&O: Vital Signs Date Time Temp Pulse Resp B/P (MAP) Pulse Ox O2 Delivery O2 Flow Rate FiO2 02/08/22 07:11 99 Ventilator 02/08/22 06:00 73 18 131/74 02/08/22 04:00 98.8 98.8 I & O 02/07/22 02/07/22 02/08/22 15:00 23:00 07:00 Intake Total 200 ml 400 ml 400 ml Output Total 605 ml 420 ml 285 ml Balance -405 ml -20 ml 115 ml Physical Exam General: Other (sedated) Heart: Regular rate (SR with PVCs), Other (distant heart sounds) Lungs: Clear Abdomen: Soft, Other (obese) Extremities: No cyanosis, Other (trace LE ) Skin: No breakdown Labs Labs: Laboratory Tests Test 02/08/22 06:00 02/08/22 07:10 White Blood Count 11.9 x10^3/uL (4.0-11.0) Red Blood Count 3.67 x10^6/uL (3.50-5.40) Hemoglobin 10.7 g/dL (12.0-15.5) Hematocrit 33.0 % (36.0-47.0) Mean Corpuscular Volume 90 fL (79-100) Mean Corpuscular Hemoglobin 29 pg (25-35) Mean Corpuscular Hemoglobin Concent 32 g/dL (31-37) Red Cell Distribution Width 14.8 % (11.5-14.5) Platelet Count 412 x10^3/uL (140-400) Neutrophils (%) (Auto) 64 % (31-73) Lymphocytes (%) (Auto) 17 % (24-48) Monocytes (%) (Auto) 16 % (0-9) Eosinophils (%) (Auto) 3 % (0-3) Basophils (%) (Auto) 1 % (0-3) Neutrophils # (Auto) 7.6 x10^3/uL (1.8-7.7) Lymphocytes # (Auto) 2.1 x10^3/uL (1.0-4.8) Monocytes # (Auto) 1.8 x10^3/uL (0.0-1.1) Eosinophils # (Auto) 0.3 x10^3/uL (0.0-0.7) Basophils # (Auto) 0.1 x10^3/uL (0.0-0.2) Sodium Level 140 mmol/L (136-145) Potassium Level 3.5 mmol/L (3.5-5.1) Chloride Level 105 mmol/L (98-107) Carbon Dioxide Level 28 mmol/L (21-32) Anion Gap 7 (6-14) Blood Urea Nitrogen 23 mg/dL (7-20) Creatinine 0.8 mg/dL (0.6-1.0) Estimated GFR (Cockcroft-Gault) 74.5 BUN/Creatinine Ratio 29 (6-20) Glucose Level 123 mg/dL (70-99) Calcium Level 8.6 mg/dL (8.5-10.1) Total Bilirubin 0.4 mg/dL (0.2-1.0) Aspartate Amino Transf (AST/SGOT) 57 U/L (15-37) Alanine Aminotransferase (ALT/SGPT) 64 U/L (14-59) Alkaline Phosphatase 134 U/L (46-116) Total Protein 6.5 g/dL (6.4-8.2) Albumin 2.3 g/dL (3.4-5.0) Albumin/Globulin Ratio 0.5 (1.0-1.7) O2 Saturation 98 % (92-99) Arterial Blood pH 7.50 (7.35-7.45) Arterial Blood pCO2 at Patient Temp 37 mmHg (35-46) Arterial Blood pO2 at Patient Temp 107 mmHg (75-108) Arterial Blood HCO3 28 mmol/L (21-28) Arterial Blood Base Excess 5 mmol/L (-3-3) FiO2 40 Assessment and Plan Assessmemt and Plan Problems Medical Problems: (1) Fever Status: Acute Comment Review of Relevant I have reviewed the following items alf (where applicable) has been applied. Medications: Current Medications Medications (Trade) Dose Ordered Sig/Katia Route PRN Reason Start Time Stop Time Status Last Admin Dose Admin Atropine Sulfate (Isopto Atropine) 1 drop PRN Q2HR PRN SL SECRETIONS 02/07/22 14:45 02/07/22 16:49 Justifications for Admission Other Justification MONA TOPETE MD Feb 08, 2022 10:09
[2022-02-08] MEDS: SENNOSIDES/DOCUSATE 8.6/50MG TABLET. PO SCH ×2 (10:19→21:20)
[2022-02-08] MEDS: FAMOTIDINE 20 MG/2 ML VIAL IVP SCH ×2 (10:19→21:20)
[2022-02-08] MEDS: SACUBITRIL/VALSARTAN 24/26MG TABLET. PO SCH ×2 (10:20→21:20)
[2022-02-08] MEDS: AMIODARONE HCL 200 MG TABLET. PO SCH (10:23)
[2022-02-08] MEDS: ASPIRIN CHEWABLE 81 MG TABLET. PO SCH (10:23)
[2022-02-08] MEDS: ENOXAPARIN 40 MG/0.4 ML SYRINGE. SQ SCH ×2 (10:24→21:19)
[2022-02-08] MEDS: METOPROLOL TART IMMED RELEASE 25 MG TABLET. PO SCH ×2 (10:24→21:20)
--- NOTE | 2022-02-08 10:57 | PDOC ---
PULMONARY PROGRESS NOTES DATE: 02/08/22 TIME: 10:55 Subjective Patient remains on mechanical ventilation, patient has been off sedation since 02/03/2022, reflexes intact, Remains unresponsive. l Vitals Vital Signs Date Time Temp Pulse Resp B/P (MAP) Pulse Ox O2 Delivery O2 Flow Rate FiO2 02/08/22 10:24 161/84 02/08/22 10:23 74 02/08/22 07:11 99 Ventilator 02/08/22 06:00 18 02/08/22 04:00 98.8 98.8 Comments Remains intubated on assist control mode Lungs: Clear Cardiovascular: S1, S2 Abdomen: Soft, Non-tender, Other (Obese) Extremities: Other (1+ edema) Skin: Warm Labs Laboratory Tests Test 02/07/22 07:12 02/08/22 06:00 02/08/22 07:10 O2 Saturation 98 % (92-99) 98 % (92-99) Arterial Blood pH 7.51 (7.35-7.45) 7.50 (7.35-7.45) Arterial Blood pCO2 at Patient Temp 35 mmHg (35-46) 37 mmHg (35-46) Arterial Blood pO2 at Patient Temp 104 mmHg (75-108) 107 mmHg (75-108) Arterial Blood HCO3 27 mmol/L (21-28) 28 mmol/L (21-28) Arterial Blood Base Excess 4 mmol/L (-3-3) 5 mmol/L (-3-3) FiO2 40% vent 40 White Blood Count 11.9 x10^3/uL (4.0-11.0) Red Blood Count 3.67 x10^6/uL (3.50-5.40) Hemoglobin 10.7 g/dL (12.0-15.5) Hematocrit 33.0 % (36.0-47.0) Mean Corpuscular Volume 90 fL (79-100) Mean Corpuscular Hemoglobin 29 pg (25-35) Mean Corpuscular Hemoglobin Concent 32 g/dL (31-37) Red Cell Distribution Width 14.8 % (11.5-14.5) Platelet Count 412 x10^3/uL (140-400) Neutrophils (%) (Auto) 64 % (31-73) Lymphocytes (%) (Auto) 17 % (24-48) Monocytes (%) (Auto) 16 % (0-9) Eosinophils (%) (Auto) 3 % (0-3) Basophils (%) (Auto) 1 % (0-3) Neutrophils # (Auto) 7.6 x10^3/uL (1.8-7.7) Lymphocytes # (Auto) 2.1 x10^3/uL (1.0-4.8) Monocytes # (Auto) 1.8 x10^3/uL (0.0-1.1) Eosinophils # (Auto) 0.3 x10^3/uL (0.0-0.7) Basophils # (Auto) 0.1 x10^3/uL (0.0-0.2) Sodium Level 140 mmol/L (136-145) Potassium Level 3.5 mmol/L (3.5-5.1) Chloride Level 105 mmol/L (98-107) Carbon Dioxide Level 28 mmol/L (21-32) Anion Gap 7 (6-14) Blood Urea Nitrogen 23 mg/dL (7-20) Creatinine 0.8 mg/dL (0.6-1.0) Estimated GFR (Cockcroft-Gault) 74.5 BUN/Creatinine Ratio 29 (6-20) Glucose Level 123 mg/dL (70-99) Calcium Level 8.6 mg/dL (8.5-10.1) Total Bilirubin 0.4 mg/dL (0.2-1.0) Aspartate Amino Transf (AST/SGOT) 57 U/L (15-37) Alanine Aminotransferase (ALT/SGPT) 64 U/L (14-59) Alkaline Phosphatase 134 U/L (46-116) Total Protein 6.5 g/dL (6.4-8.2) Albumin 2.3 g/dL (3.4-5.0) Albumin/Globulin Ratio 0.5 (1.0-1.7) Laboratory Tests Test 02/08/22 06:00 02/08/22 07:10 White Blood Count 11.9 x10^3/uL (4.0-11.0) Red Blood Count 3.67 x10^6/uL (3.50-5.40) Hemoglobin 10.7 g/dL (12.0-15.5) Hematocrit 33.0 % (36.0-47.0) Mean Corpuscular Volume 90 fL (79-100) Mean Corpuscular Hemoglobin 29 pg (25-35) Mean Corpuscular Hemoglobin Concent 32 g/dL (31-37) Red Cell Distribution Width 14.8 % (11.5-14.5) Platelet Count 412 x10^3/uL (140-400) Neutrophils (%) (Auto) 64 % (31-73) Lymphocytes (%) (Auto) 17 % (24-48) Monocytes (%) (Auto) 16 % (0-9) Eosinophils (%) (Auto) 3 % (0-3) Basophils (%) (Auto) 1 % (0-3) Neutrophils # (Auto) 7.6 x10^3/uL (1.8-7.7) Lymphocytes # (Auto) 2.1 x10^3/uL (1.0-4.8) Monocytes # (Auto) 1.8 x10^3/uL (0.0-1.1) Eosinophils # (Auto) 0.3 x10^3/uL (0.0-0.7) Basophils # (Auto) 0.1 x10^3/uL (0.0-0.2) Sodium Level 140 mmol/L (136-145) Potassium Level 3.5 mmol/L (3.5-5.1) Chloride Level 105 mmol/L (98-107) Carbon Dioxide Level 28 mmol/L (21-32) Anion Gap 7 (6-14) Blood Urea Nitrogen 23 mg/dL (7-20) Creatinine 0.8 mg/dL (0.6-1.0) Estimated GFR (Cockcroft-Gault) 74.5 BUN/Creatinine Ratio 29 (6-20) Glucose Level 123 mg/dL (70-99) Calcium Level 8.6 mg/dL (8.5-10.1) Total Bilirubin 0.4 mg/dL (0.2-1.0) Aspartate Amino Transf (AST/SGOT) 57 U/L (15-37) Alanine Aminotransferase (ALT/SGPT) 64 U/L (14-59) Alkaline Phosphatase 134 U/L (46-116) Total Protein 6.5 g/dL (6.4-8.2) Albumin 2.3 g/dL (3.4-5.0) Albumin/Globulin Ratio 0.5 (1.0-1.7) O2 Saturation 98 % (92-99) Arterial Blood pH 7.50 (7.35-7.45) Arterial Blood pCO2 at Patient Temp 37 mmHg (35-46) Arterial Blood pO2 at Patient Temp 107 mmHg (75-108) Arterial Blood HCO3 28 mmol/L (21-28) Arterial Blood Base Excess 5 mmol/L (-3-3) FiO2 [address] head 02/06/2022 reviewed Chest x-ray reviewed 02/03/2022. Mild bilateral interstitial infiltrates Impression . 1. Acute hypoxic respiratory failure secondary to cardiac arrest and suspected aspiration. Now has anoxic encephalopathy with recent CT head showing findings consistent with cerebral edema and anoxic brain injury 2. Status post ventricular fibrillation and ventricular tachycardia cardiac arrest, requiring multiple shocks, epinephrine with return of spontaneous circulation. The duration since she was found unresponsive was probably very long and as a result, she was not considered a candidate for hypothermia. 3. Abnormal CT chest with upper lobe infiltrates and some basal atelectasis. Suspect component of aspiration. 4. Leukocytosis.--Ongoing/improved 5. Acute kidney injury.--Resolved 6. Hypokalemia. May be contributing to ventricular fibrillation and ventricular tachycardia. Improved 7. Lactic acidosis secondary to shock, now resolved. 8. Abnormal liver function tests secondary to shock liver. 9. Possible urinary tract infection./She has ureteral stone. 10. Anoxic encephalopathy with recent worsening CT head findings Plan . Updated 02/08/2022 Continue current ventilatory support, ABG reviewed exam unchanged, flexes intact, does not track, concerning upward gaze patient has been off sedation since 02/03/2022, CT head findings consistent with anoxic encephalopathy. Monitor renal function/liver function--ongoing transaminitis, stable renal function Follow cardiology recommendations--continue amiodarone Continue antibiotics, follow cultures Continue tube feeding for nutritional support DVT/GI prophylaxis Discussed with RN and patient's son at the bedside. I did explain to them clinical evaluation as well as repeat CT head findings. I had recommended c omfort care and allowing natural . Family is planning to withdraw tomorrow morning as other family members are reaching her tonight. Updated 02/07/2022 Continue current ventilatory support, ABG reviewed exam unchanged, flexes intact, does not track, concerning upward gaze patient has been off sedation since 02/03/2022, CT head findings consistent with anoxic encephalopathy. Monitor renal function/liver function--ongoing transaminitis, stable renal function Follow cardiology recommendations--continue amiodarone Continue antibiotics, follow cultures Continue tube feeding for nutritional support DVT/GI prophylaxis Discussed with RN and patient's son at the bedside. I did explain to them clinical evaluation as well as repeat CT head findings. I had recommended comfort care and allowing natural . Alternatively if they want to keep her alive tracheostomy and PEG tube would be required. Patient's son is going to talk to his brother and let me know what decision they make as a family. Updated 02/06/2022 Continue current ventilatory support, ABG reviewed Logical exam unchanged, flexes intact, does not track, concerning upward gaze Continue to monitor neurology status concern for anoxic injury, patient has been off sedation since 02/03/2022, will reevaluate/reassess on Tuesday and if not any improvement in neurological status, will need family care meeting in regards to plan of care, palliative care versus proceeding with tracheostomy/PEG tube Monitor renal function/liver function--ongoing transaminitis, stable renal function Follow cardiology recommendations--continue amiodarone Continue antibiotics, follow cultures Continue tube feeding for nutritional support DVT/GI prophylaxis Discussed with RN and RT and daughter at bedside Critical care time 30 minutes Updated 02/05/2022 Continue current ventilatory support, ABG reviewed Continue to monitor neurology status concern for anoxic injury, patient has been off sedation since 02/03/2022, will reevaluate/reassess on Tuesday and if not any improvement in neurological status, will need family care meeting in regards to plan of care, palliative care versus proceeding with tracheostomy/PEG tube Monitor renal function/liver function--stable Follow cardiology recommendations--continue amiodarone Continue antibiotics, follow cultures Continue tube feeding for nutritional support DVT/GI prophylaxis Discussed with RN and RT and son at bedside Critical care time 30 minutes Updated 02/04/2022 Continue current ventilatory support, ABG reviewed Continue to monitor neurology status concern for anoxic injury, will monitor off sedation for 48-70 further decisions regards to plan of care Monitor renal function/liver function Follow cardiology recommendations--continue amiodarone/heparin Continue antibiotics, follow cultures DVT/GI prophylaxis Discussed with RN and RT and son at bedside Critical care time 35 minutes MAYDA KIM MD Feb 08, 2022 10:57
[2022-02-09] VITALS (18 sets, daily range): BP systolic 114–154; BP diastolic 66–84
[2022-02-09] MEDS: AMPICILLIN/SULBACTAM 3 GM in IV DEXTROSE 5% 100ML 100 ML IV SCH ×4 (02:29→18:38)
[2022-02-09] MEDS: SENNOSIDES/DOCUSATE 8.6/50MG TABLET. PO SCH ×2 (09:00→20:45)
--- NOTE | 2022-02-09 09:59 | PDOC ---
PULMONARY PROGRESS NOTES DATE: 02/09/22 TIME: 09:58 Subjective Patient remains on mechanical ventilation, patient has been off sedation since 02/03/2022, reflexes intact, Remains unresponsive. l Vitals Vital Signs Date Time Temp Pulse Resp B/P (MAP) Pulse Ox O2 Delivery O2 Flow Rate FiO2 02/09/22 08:00 Mechanical Ventilator 02/09/22 07:12 99 02/09/22 06:00 73 18 149/84 02/09/22 04:00 99.2 99.2 Comments Remains intubated on assist control mode Lungs: Clear Cardiovascular: S1, S2 Abdomen: Soft, Non-tender, Other (Obese) Extremities: Other (1+ edema) Skin: Warm Labs Laboratory Tests Test 02/08/22 06:00 02/08/22 07:10 White Blood Count 11.9 x10^3/uL (4.0-11.0) Red Blood Count 3.67 x10^6/uL (3.50-5.40) Hemoglobin 10.7 g/dL (12.0-15.5) Hematocrit 33.0 % (36.0-47.0) Mean Corpuscular Volume 90 fL (79-100) Mean Corpuscular Hemoglobin 29 pg (25-35) Mean Corpuscular Hemoglobin Concent 32 g/dL (31-37) Red Cell Distribution Width 14.8 % (11.5-14.5) Platelet Count 412 x10^3/uL (140-400) Neutrophils (%) (Auto) 64 % (31-73) Lymphocytes (%) (Auto) 17 % (24-48) Monocytes (%) (Auto) 16 % (0-9) Eosinophils (%) (Auto) 3 % (0-3) Basophils (%) (Auto) 1 % (0-3) Neutrophils # (Auto) 7.6 x10^3/uL (1.8-7.7) Lymphocytes # (Auto) 2.1 x10^3/uL (1.0-4.8) Monocytes # (Auto) 1.8 x10^3/uL (0.0-1.1) Eosinophils # (Auto) 0.3 x10^3/uL (0.0-0.7) Basophils # (Auto) 0.1 x10^3/uL (0.0-0.2) Sodium Level 140 mmol/L (136-145) Potassium Level 3.5 mmol/L (3.5-5.1) Chloride Level 105 mmol/L (98-107) Carbon Dioxide Level 28 mmol/L (21-32) Anion Gap 7 (6-14) Blood Urea Nitrogen 23 mg/dL (7-20) Creatinine 0.8 mg/dL (0.6-1.0) Estimated GFR (Cockcroft-Gault) 74.5 BUN/Creatinine Ratio 29 (6-20) Glucose Level 123 mg/dL (70-99) Calcium Level 8.6 mg/dL (8.5-10.1) Total Bilirubin 0.4 mg/dL (0.2-1.0) Aspartate Amino Transf (AST/SGOT) 57 U/L (15-37) Alanine Aminotransferase (ALT/SGPT) 64 U/L (14-59) Alkaline Phosphatase 134 U/L (46-116) Total Protein 6.5 g/dL (6.4-8.2) Albumin 2.3 g/dL (3.4-5.0) Albumin/Globulin Ratio 0.5 (1.0-1.7) O2 Saturation 98 % (92-99) Arterial Blood pH 7.50 (7.35-7.45) Arterial Blood pCO2 at Patient Temp 37 mmHg (35-46) Arterial Blood pO2 at Patient Temp 107 mmHg (75-108) Arterial Blood HCO3 28 mmol/L (21-28) Arterial Blood Base Excess 5 mmol/L (-3-3) FiO2 [address] head 02/06/2022 reviewed Chest x-ray reviewed 02/03/2022. Mild bilateral interstitial infiltrates Impression . 1. Acute hypoxic respiratory failure secondary to cardiac arrest and suspected aspiration. Now has anoxic encephalopathy with recent CT head showing findings consistent with cerebral edema and anoxic brain injury 2. Status post ventricular fibrillation and ventricular tachycardia cardiac arrest, requiring multiple shocks, epinephrine with return of spontaneous circulation. The duration since she was found unresponsive was probably very long and as a result, she was not considered a candidate for hypothermia. 3. Abnormal CT chest with upper lobe infiltrates and some basal atelectasis. Suspect component of aspiration. 4. Leukocytosis.--Ongoing/improved 5. Acute kidney injury.--Resolved 6. Hypokalemia. May be contributing to ventricular fibrillation and ventricular tachycardia. Improved 7. Lactic acidosis secondary to shock, now resolved. 8. Abnormal liver function tests secondary to shock liver. 9. Possible urinary tract infection./She has ureteral stone. 10. Anoxic encephalopathy with recent worsening CT head findings Plan . Updated 02/09/2022 Continue current ventilatory support, exam unchanged, flexes intact, does not track, concerning upward gaze patient has been off sedation since 02/03/2022, CT head findings consistent with anoxic encephalopathy. Monitor renal function/liver function--ongoing transaminitis, stable renal func tion Follow cardiology recommendations--continue amiodarone Continue antibiotics, follow cultures Continue tube feeding for nutritional support DVT/GI prophylaxis Discussed with RN and patient's entire family at the bedside. I did explain to them clinical evaluation as well as repeat CT head findings. I had recommended comfort care and allowing natural . Family is planning to withdraw today. Updated 02/08/2022 Continue current ventilatory support, ABG reviewed exam unchanged, flexes intact, does not track, concerning upward gaze patient has been off sedation since 02/03/2022, CT head findings consistent with anoxic encephalopathy. Monitor renal function/liver function--ongoing transaminitis, stable renal function Follow cardiology recommendations--continue amiodarone Continue antibiotics, follow cultures Continue tube feeding for nutritional support DVT/GI prophylaxis Discussed with RN and patient's son at the bedside. I did explain to them clinical evaluation as well as repeat CT head findings. I had recommended comfort care and allowing natural . Family is planning to withdraw tomorrow morning as other family members are reaching her tonight. Updated 02/07/2022 Continue current ventilatory support, ABG reviewed exam unchanged, flexes intact, does not track, concerning upward gaze patient has been off sedation since 02/03/2022, CT head findings consistent with anoxic encephalopathy. Monitor renal function/liver function--ongoing transaminitis, stable renal function Follow cardiology recommendations--continue amiodarone Continue antibiotics, follow cultures Continue tube feeding for nutritional support DVT/GI prophylaxis Discussed with RN and patient's son at the bedside. I did explain to them clinical evaluation as well as repeat CT head findings. I had recommended comfort care and allowing natural . Alternatively if they want to keep her alive tracheostomy and PEG tube would be required. Patient's son is going to talk to his brother and let me know what decision they make as a family. Updated 02/06/2022 Continue current ventilatory support, ABG reviewed Logical exam unchanged, flexes intact, does not track, concerning upward gaze Continue to monitor neurology status concern for anoxic injury, patient has been off sedation since 02/03/2022, will reevaluate/reassess on Tuesday and if not any improvement in neurological status, will need family care meeting in regards to plan of care, palliative care versus proceeding with tracheostomy/PEG tube Monitor renal function/liver function--ongoing transaminitis, stable renal function Follow cardiology recommendations--continue amiodarone Continue antibiotics, follow cultures Continue tube feeding for nutritional support DVT/GI prophylaxis Discussed with RN and RT and daughter at bedside Critical care time 30 minutes Updated 02/05/2022 Continue current ventilatory support, ABG reviewed Continue to monitor neurology status concern for anoxic injury, patient has been off sedation since 02/03/2022, will reevaluate/reassess on Tuesday and if not any improvement in neurological status, will need family care meeting in regards to plan of care, palliative care versus proceeding with tracheostomy/PEG tube Monitor renal function/liver function--stable Follow cardiology recommendations--continue amiodarone Continue antibiotics, follow cultures Continue tube feeding for nutritional support DVT/GI prophylaxis Discussed with RN and RT and son at bedside Critical care time 30 minutes Updated 02/04/2022 Continue current ventilatory support, ABG reviewed Continue to monitor neurology status concern for anoxic injury, will monitor off sedation for 48-70 further decisions regards to plan of care Monitor renal function/liver function Follow cardiology recommendations--continue amiodarone/heparin Continue antibiotics, follow cultures DVT/GI prophylaxis Discussed with RN and RT and son at bedside Critical care time 35 minutes MAYDA KIM MD Feb 09, 2022 09:59
[2022-02-09] MEDS: ENOXAPARIN 40 MG/0.4 ML SYRINGE. SQ SCH ×2 (11:00→22:02)
[2022-02-09] MEDS: AMIODARONE HCL 200 MG TABLET. PO SCH (11:03)
[2022-02-09] MEDS: FAMOTIDINE 20 MG/2 ML VIAL IVP SCH ×2 (11:03→22:01)
[2022-02-09] MEDS: METOPROLOL TART IMMED RELEASE 25 MG TABLET. PO SCH ×2 (11:04→20:45)
[2022-02-09] MEDS: ASPIRIN CHEWABLE 81 MG TABLET. PO SCH (11:04)
[2022-02-09] MEDS: SACUBITRIL/VALSARTAN 24/26MG TABLET. PO SCH ×2 (11:07→20:45)
--- NOTE | 2022-02-09 11:35 | PDOC ---
[facility] [facility] PROGRESS NOTE Date of Service DOS: DATE: 02/09/22 TIME: 11:33 Chief Complaint Chief Complaint Acute hypoxic respiratory failure , possible aspiration probable anoxic brain injury Vfib/VTach cardiac arrest in field, Hypokalemia/hypomagnesemia acute renal failure concern for brain injury with arrest, better today , still sluggish, upward gaze, no meaningful following Morbid obesity, BMI 46 History of Present Illness History of Present Illness 02/09: Patient evaluated with family at bedside. She has been extubated. Appears somewhat uncomfortable and coughing. Discussed with sons and family that we can initiate morphine as needed air hunger and pain. If need be we can also do slow morphine infusion if they agree to comfort care measures. Advance Care Planning: Total time spent [id number] with patient 16 minutes in discussion with goals of care, comfort care, end-of-life care, pain management, code status. 02/08: Afebrile. Essentially no change. Family family had discussions to withdraw care given diagnosis of anoxic brain injury. This may happen today. Poor prognosis. 02/07, no sedation, mental status poor, not following family aware, and here a lot, neuro following likely brain injury 02/06 she was working against the vent per RN overnight, no purposeful movement, family hre, Neuro following poor prognosis discussed, cont supportive care in ICU, on vent Pulmonary following, still on vent e-lyte management, ICU protocol NO sedation cont antibiotics mult family here today Vitals/I&O Vitals/I&O: Vital Signs Date Time Temp Pulse Resp B/P (MAP) Pulse Ox O2 Delivery O2 Flow Rate FiO2 02/09/22 11:25 Nasal Cannula 4.0 02/09/22 11:07 99 02/09/22 11:07 117/74 02/09/22 06:00 73 18 02/09/22 04:00 99.2 99.2 I & O 02/08/22 02/08/22 02/09/22 15:00 23:00 07:00 Intake Total 200 ml 350 ml 400 ml Output Total 450 ml 430 ml 625 ml Balance -250 ml -80 ml -225 ml Physical Exam General: Other (sedated) Heart: Regular rate (SR with PVCs), Other (distant heart sounds) Lungs: Clear Abdomen: Soft, Other (obese) Extremities: No cyanosis, Other (trace LE ) Skin: No breakdown Assessment and Plan Assessmemt and Plan Problems Medical Problems: (1) Fever Status: Acute Comment Review of Relevant I have reviewed the following items alf (where applicable) has been applied. Justifications for Admission Other Justification MONA TOPETE MD Feb 09, 2022 11:35
[2022-02-09] MEDS ORDERED: SCOPOLAMINE 1.5MG PATCH. TD ONE (11:45)
[2022-02-09] MEDS: MORPHINE SULFATE 2 MG/ML INJ. IVP PRN ×3 (11:52→16:08)
[2022-02-10] VITALS: BP 127/66
[2022-02-10] MEDS: AMPICILLIN/SULBACTAM 3 GM in IV DEXTROSE 5% 100ML 100 ML IV SCH ×2 (00:05→05:41)
[2022-02-10 04:00] VITALS: BP 138/67
[2022-02-10] MEDS: MORPHINE SULFATE 2 MG/ML INJ. IVP PRN ×3 (07:00→13:32)
[2022-02-10 08:00] VITALS: BP 122/68
--- NOTE | 2022-02-10 10:30 | NUR ---
Talked with sons for clarification on comfort care. He states she is complete comfort care. He asked what the plan would be is she does not pass in the next 24 hours. Explained different scenario's and told him I would get social work to come in with more details. Pt is resting comfortable at this time. No signs of air hunger. Family does not wish her to be turned at this time/
--- NOTE | 2022-02-10 10:37 | PDOC ---
[facility] [facility] PROGRESS NOTE Date of Service DOS: DATE: 02/10/22 TIME: 10:35 Chief Complaint Chief Complaint Acute hypoxic respiratory failure , possible aspiration probable anoxic brain injury Vfib/VTach cardiac arrest in field, Hypokalemia/hypomagnesemia acute renal failure concern for brain injury with arrest, better today , still sluggish, upward gaze, no meaningful following Morbid obesity, BMI 46 History of Present Illness History of Present Illness 02/10: Patient evaluated in ICU. Multiple family members at bedside. There has been essentially no change, she is on comfort care measures. Poor prognosis. 02/09: Patient evaluated with family at bedside. She has been extubated. Appears somewhat uncomfortable and coughing. Discussed with sons and family that we can initiate morphine as needed air hunger and pain. If need be we can also do slow morphine infusion if they agree to comfort care measures. Advance Care Planning: Total time spent [id number] with patient 16 minutes in discussion with goals of care, comfort care, end-of-life care, pain management, code status. 02/08: Afebrile. Essentially no change. Family family had discussions to withdraw care given diagnosis of anoxic brain injury. This may happen today. Poor prognosis. 02/07, no sedation, mental status poor, not following family aware, and here a lot, neuro following likely brain injury 02/06 she was working against the vent per RN overnight, no purposeful movement, family hre, Neuro following poor prognosis discussed, cont supportive care in ICU, on vent Pulmonary following, still on vent e-lyte management, ICU protocol NO sedation cont antibiotics mult family here today Vitals/I&O Vitals/I&O: Vital Signs Date Time Temp Pulse Resp B/P (MAP) Pulse Ox O2 Delivery O2 Flow Rate FiO2 02/10/22 08:00 Room Air 02/10/22 08:00 98.2 72 18 122/68 96 98.2 02/10/22 04:00 2.0 I & O 02/09/22 02/09/22 02/10/22 15:00 23:00 07:00 Intake Total 520 ml 100 ml 100 ml Output Total 1100 ml 350 ml Balance 520 ml -1000 ml -250 ml Physical Exam General: Other (sedated) Heart: Regular rate (SR with PVCs), Other (distant heart sounds) Lungs: Clear Abdomen: Soft, Other (obese) Extremities: No cyanosis, Other (trace LE ) Skin: No breakdown Assessment and Plan Assessmemt and Plan Problems Medical Problems: (1) Fever Status: Acute Comment Review of Relevant I have reviewed the following items alf (where applicable) has been applied. Medications: Current Medications Medications (Trade) Dose Ordered Sig/Katia Route PRN Reason Start Time Stop Time Status Last Admin Dose Admin Morphine Sulfate (Morphine Sulfate) 2 mg PRN Q1HR PRN IVP PAIN/AIR HUNGER 02/09/22 11:45 02/10/22 07:00 Scopolamine (Transderm-Scop) 1 patch 1X ONCE TD 02/09/22 11:45 02/09/22 11:47 DC 02/09/22 11:51 Justifications for Admission Other Justification MONA TOPETE MD Feb 10, 2022 10:37
--- NOTE | 2022-02-10 10:43 | PDOC ---
PULMONARY PROGRESS NOTES DATE: 02/10/22 TIME: 10:41 Subjective Patient was extubated 02/09/2022. Remains unresponsive. On room air.. Vitals Vital Signs Date Time Temp Pulse Resp B/P (MAP) Pulse Ox O2 Delivery O2 Flow Rate FiO2 02/10/22 08:00 Room Air 02/10/22 08:00 98.2 72 18 122/68 96 98.2 02/10/22 04:00 2.0 Lungs: Clear Cardiovascular: S1, S2 Abdomen: Soft, Non-tender, Other (Obese) Extremities: Other (1+ edema) Skin: Warm Comments Repeat CT head 02/06/2022 reviewed Chest x-ray reviewed 02/03/2022. Mild bilateral interstitial infiltrates Impression . 1. Acute hypoxic respiratory failure secondary to cardiac arrest and suspected aspiration. Now has anoxic encephalopathy with recent CT head showing findings consistent with cerebral edema and anoxic brain injury. Terminally extubated 02/09/2022 2. Status post ventricular fibrillation and ventricular tachycardia cardiac arrest, requiring multiple shocks, epinephrine with return of spontaneous circulation. The duration since she was found unresponsive was probably very long and as a result, she was not considered a candidate for hypothermia. 3. Abnormal CT chest with upper lobe infiltrates and some basal atelectasis. Suspect component of aspiration. 4. Leukocytosis.--Ongoing/improved 5. Acute kidney injury.--Resolved 6. Hypokalemia. May be contributing to ventricular fibrillation and ventricular tachycardia. Improved 7. Lactic acidosis secondary to shock, now resolved. 8. Abnormal liver function tests secondary to shock liver. 9. Possible urinary tract infection./She has ureteral stone. 10. Anoxic encephalopathy with recent worsening CT head findings Plan . Updated 02/10/2022 Patient is terminally extubated. Remains unresponsive. Discussed with patient's family at the bedside. Continue present supportive care. We will see her as needed. Updated 02/09/2022 Continue current ventilatory support, exam unchanged, flexes intact, does not track, concerning upward gaze patient has been off sedation since 02/03/2022, CT head findings consistent with anoxic encephalopathy. Monitor renal function/liver function--ongoing transaminitis, stable renal function Follow cardiology recommendations--continue amiodarone Continue antibiotics, follow cultures Continue tube feeding for nutritional support DVT/GI prophylaxis Discussed with RN and patient's entire family at the bedside. I did explain to them clinical evaluation as well as repeat CT head findings. I had recommended comfort care and allowing natural . Family is planning to withdraw today. MAYDA KIM MD Feb 10, 2022 10:43
[2022-02-10] MEDS: MORPHINE SULFATE 30 ML IV PRN (13:56)
[2022-02-10 20:00] VITALS: BP 123/67
[2022-02-11] MEDS: MORPHINE SULFATE 30 ML IV PRN ×3 (03:38→21:20)
[2022-02-11 08:00] VITALS: BP 134/76
--- NOTE | 2022-02-11 08:30 | PDOC ---
[employer] PROGRESS NOTE Date of Service DOS: DATE: 02/11/22 TIME: 08: Chief Complaint Chief Complaint Acute hypoxic respiratory failure , possible aspiration probable anoxic brain injury Vfib/VTach cardiac arrest in field, Hypokalemia/hypomagnesemia acute renal failure concern for brain injury with arrest, better today , still sluggish, upward gaze, no meaningful following Morbid obesity, BMI 46 History of Present Illness History of Present Illness 02/11: Patient seen in ICU. Essentially no change. Receiving morphine 2 mg/hr continuous infusion. Poor prognosis. Discussed with RN. 02/10: Patient evaluated in ICU. Multiple family members at bedside. There has been essentially no change, she is on comfort care measures. Poor prognosis. 02/09: Patient evaluated with family at bedside. She has been extubated. Appears somewhat uncomfortable and coughing. Discussed with sons and family that we can initiate morphine as needed air hunger and pain. If need be we can also do slow morphine infusion if they agree to comfort care measures. Advance Care Planning: Total time spent [id number] with patient 16 minutes in discussion with goals of care, comfort care, end-of-life care, pain management, code status. 02/08: Afebrile. Essentially no change. Family family had discussions to withdraw care given diagnosis of anoxic brain injury. This may happen today. Poor prognosis. 02/07, no sedation, mental status poor, not following family aware, and here a lot, neuro following likely brain injury 02/06 she was working against the vent per RN overnight, no purposeful movement, family hre, Neuro following poor prognosis discussed, cont supportive care in ICU, on vent Pulmonary following, still on vent e-lyte management, ICU protocol NO sedation cont antibiotics mult family here today Vitals/I&O Vitals/I&O: Vital Signs Date Time Temp Pulse Resp B/P (MAP) Pulse Ox O2 Delivery O2 Flow Rate FiO2 02/11/22 08:00 98.2 80 20 134/76 89 Room Air 98.2 I & O 02/10/22 02/10/22 02/11/22 15:00 23:00 07:00 Intake Total 13 ml Balance 13 ml Physical Exam General: Other (sedated) Heart: Regular rate (SR with PVCs), Other (distant heart sounds) Lungs: Clear Abdomen: Soft, Other (obese) Extremities: No cyanosis, Other (trace LE ) Skin: No breakdown Assessment and Plan Assessmemt and Plan Problems Medical Problems: (1) Fever Status: Acute Comment Review of Relevant I have reviewed the following items alf (where applicable) has been applied. Medications: Current Medications Medications (Trade) Dose Ordered Sig/Katia Route PRN Reason Start Time Stop Time Status Last Admin Dose Admin Morphine Sulfate 30 ml @ 2 mls/hr CONT PRN PRN IV PER PROTOCOL 02/10/22 13:45 02/11/22 03:38 Justifications for Admission Other Justification MONA TOPETE MD Feb 11, 2022 08:30
--- NOTE | 2022-02-11 10:11 | NUR ---
SS following up with discharge planning. SS reviewed pt chart and discussed with pt RN. DNR. Comfort Measures only. SS met with pt's son and pt's son agreeable to hospice for evaluation. Referral phoned and faxed to [facility], ; fax [phone]. SS will continue to follow for discharge planning.
[2022-02-11 20:00] VITALS: BP 133/78
[2022-02-12 08:00] VITALS: BP 142/80
[2022-02-12] MEDS: MORPHINE SULFATE 30 ML IV PRN (08:05)
--- NOTE | 2022-02-12 09:23 | PDOC ---
[employer] PROGRESS NOTE Date of Service DOS: DATE: 02/12/22 TIME: 09:22 Chief Complaint Chief Complaint Acute hypoxic respiratory failure , possible aspiration probable anoxic brain injury Vfib/VTach cardiac arrest in field, Hypokalemia/hypomagnesemia acute renal failure concern for brain injury with arrest, better today , still sluggish, upward gaze, no meaningful following Morbid obesity, BMI 46 History of Present Illness History of Present Illness 02/12: Patient evaluated in ICU. There has been no change in her status. Discussed with social worker aide, will begin looking towards other options, including home with home hospice. 02/11: Patient seen in ICU. Essentially no change. Receiving morphine 2 mg/hr continuous infusion. Poor prognosis. Discussed with RN. 02/10: Patient evaluated in ICU. Multiple family members at bedside. There has been essentially no change, she is on comfort care measures. Poor prognosis. 02/09: Patient evaluated with family at bedside. She has been extubated. Appears somewhat uncomfortable and coughing. Discussed with sons and family that we can initiate morphine as needed air hunger and pain. If need be we can also do slow morphine infusion if they agree to comfort care measures. Advance Care Planning: Total time spent [id number] with patient 16 minutes in discussion with goals of care, comfort care, end-of-life care, pain management, code status. 02/08: Afebrile. Essentially no change. Family family had discussions to withdraw care given diagnosis of anoxic brain injury. This may happen today. Poor prognosis. 02/07, no sedation, mental status poor, not following family aware, and here a lot, neuro following likely brain injury 02/06 she was working against the vent per RN overnight, no purposeful movement, family hre, Neuro following poor prognosis discussed, cont supportive care in ICU, on vent Pulmonary following, still on vent e-lyte management, ICU protocol NO sedation cont antibiotics mult family here today Vitals/I&O Vitals/I&O: Vital Signs Date Time Temp Pulse Resp B/P (MAP) Pulse Ox O2 Delivery O2 Flow Rate FiO2 02/12/22 08:00 Room Air 02/11/22 21:50 2.0 02/11/22 21:20 28 02/11/22 20:00 98.7 88 133/78 68 98.7 I & O 02/11/22 02/11/2222 15:00 23:00 07:00 Intake Total 36 ml Balance 36 ml Physical Exam General: Other (sedated) Heart: Regular rate (SR with PVCs), Other (distant heart sounds) Lungs: Clear Abdomen: Soft, Other (obese) Extremities: No cyanosis, Other (trace LE ) Skin: No breakdown Assessment and Plan Assessmemt and Plan Problems Medical Problems: (1) Fever Status: Acute Comment Review of Relevant I have reviewed the following items alf (where applicable) has been applied. Justifications for Admission Other Justification MONA TOPETE MD Feb 12, 2022 09:23
--- NOTE | 2022-02-12 09:42 | NUR ---
SS following up with discharge planning. SS reviewed pt chart and discussed with pt RN. Pt is comfort measures only. DNR. [facility] stated that pt did not qualify for inpatient GIP at this time. Recommendation was made to refer to [facility]. Referral for hospice made to [facility], ; fax [phone]. [facility] reviewing referral at this time. Pt's RN notified. SS will continue to follow for discharge planning. Addendum: 02/12/22 at 1010 by TONEY JENKINS [facility] coming at 1400 to evaluate pt and discuss with RN and family. Addendum: 02/12/22 at 1431 by TONEY SUMMERS SS Pt accepted at [facility], [address], [facility], [address]. Report# [phone]. Discharge orders received. Pt will discharge today and go to [facility] at 1900 via [facility] ambulance, . Packet and ambulance form on the chart.
--- NOTE | 2022-02-12 10:44 | PDOC ---
PULMONARY PROGRESS NOTES DATE: 02/12/22 TIME: 10:43 Subjective Patient was extubated 02/09/2022. Remains unresponsive. On room air.. Vitals Vital Signs Date Time Temp Pulse Resp B/P (MAP) Pulse Ox O2 Delivery O2 Flow Rate FiO2 02/12/22 08:00 Room Air 02/11/22 21:50 2.0 02/11/22 21:20 28 02/11/22 20:00 98.7 88 133/78 68 98.7 Lungs: Clear Cardiovascular: S1, S2 Abdomen: Soft, Non-tender, Other (Obese) Extremities: Other (1+ edema) Skin: Warm Comments Repeat CT head 02/06/2022 reviewed Chest x-ray reviewed 02/03/2022. Mild bilateral interstitial infiltrates Impression . 1. Acute hypoxic respiratory failure secondary to cardiac arrest and suspected aspiration. Now has anoxic encephalopathy with recent CT head showing findings consistent with cerebral edema and anoxic brain injury. Terminally extubated 02/09/2022 2. Status post ventricular fibrillation and ventricular tachycardia cardiac arrest, requiring multiple shocks, epinephrine with return of spontaneous circulation. The duration since she was found unresponsive was probably very long and as a result, she was not considered a candidate for hypothermia. 3. Abnormal CT chest with upper lobe infiltrates and some basal atelectasis. Suspect component of aspiration. 4. Leukocytosis.--Ongoing/improved 5. Acute kidney injury.--Resolved 6. Hypokalemia. May be contributing to ventricular fibrillation and ventricular tachycardia. Improved 7. Lactic acidosis secondary to shock, now resolved. 8. Abnormal liver function tests secondary to shock liver. 9. Possible urinary tract infection./She has ureteral stone. 10. Anoxic encephalopathy with recent worsening CT head findings Plan . updated 02/12/22 Patient is terminally extubated. Remains unresponsive. Discussed with patient's family at the bedside. Continue present supportive care. prn MS for air hunger Updated 02/10/2022 Patient is terminally extubated. Remains unresponsive. Discussed with patient's family at the bedside. Continue present supportive care. We will see her as needed. Updated 02/09/2022 Continue current ventilatory support, exam unchanged, flexes intact, does not track, concerning upward gaze patient has been off sedation since 02/03/2022, CT head findings consistent with anoxic encephalopathy. Monitor renal function/liver function--ongoing transaminitis, stable renal function Follow cardiology recommendations--continue amiodarone Continue antibiotics, follow cultures Continue tube feeding for nutritional support DVT/GI prophylaxis Discussed with RN and patient's entire family at the bedside. I did explain to them clinical evaluation as well as repeat CT head findings. I had recommended comfort care and allowing natural . Family is planning to withdraw today. MAYDA KIM MD Feb 12, 2022 10:44
--- NOTE | 2022-02-12 13:59 | SNU/HH DC ---
DISCHARGE ORDERS DISCHARGE INFORMATION: DISCHARGE DATE: Feb 12, 2022 FINAL DIAGNOSIS Problems Medical Problems: (1) Fever Status: Acute CONDITION ON DISCHARGE: Critical CODE STATUS: Code Status: DNR/DNI HOSPICE: HOSPICE: Yes HOSPICE EVAL & TREAT: Yes TREATMENT/EQUIPMENT ORDERS: ADAPTIVE EQUIPMENT NEEDED: None MONA TOPETE MD Feb 12, 2022 13:58
--- NOTE | 2022-02-12 14:07 | PDOC3 ---
Discharge Summary Visit Information Date of Admission: Feb 01, 2022 Date of Discharge: Feb 12, 2022 Final Diagnosis Problems Medical Problems: (1) Fever Status: Acute Brief Hospital Course Allergies Allergies Coded Allergies Type Severity Reaction Last Updated Verified No Known Drug Allergies 02/02/22 No Vital Signs Vital Signs Date Time Temp Pulse Resp B/P (MAP) Pulse Ox O2 Delivery O2 Flow Rate FiO2 02/12/22 08:00 Room Air 02/12/22 08:00 100.3 84 18 142/80 75 100.3 02/11/22 21:50 2.0 Brief Hospital Course Ms. Sweet is a 57 old female who presented with cardiac arrest and resultant anoxic brain injury. Consultation was placed to cardiology and neurology. Cardiac catheterization on 02/04 noted normal left-sided filling pressures, moderate LV dysfunction, EF 35-40%. CT head on 02/06 noted . loss of darnell-white differentiation with effacement of the sulci, progressed from prior study, suggestive of diffuse brain edema and likely related to given history of anoxic injury. After discussion with family and no significant improvement, she was placed on comfort care measures. Eventually she was transitioned to hospice home. Discharge Information Condition at Discharge: Comment (Guarded) Disposition/Orders: D/C to Another Facility No Active Prescriptions or Reported Meds Justicifation of Admission Dx: Justifications for Admission: Justification of Admission Dx: Yes MONA TOPETE MD Feb 12, 2022 14:07
--- NOTE | 2022-02-12 17:51 | NUR ---
Family agreed with [facility] in [facility]. Plan is to transfer pt at 1900. Family took all belongings. Report given to hospice House
[2022-02-12] MEDS: MORPHINE SULFATE 2 MG/ML INJ. IVP PRN (17:53)
== END 2022-02-12 20:10 | disposition hospice, inpatient (51) | DRG 870 ==
LOC: ER 16:14 → 1 WEST ICU 17:00
PROVIDERS: ADMIT Student in an Organized Health Care Education/Training Program; ATTEND Student in an Organized Health Care Education/Training Program
PROC: 5A1955Z Respiratory Ventilation, Greater than 96 Consecutive Hours (ICD-10-PCS; principal; 2022-02-01)
PROC: 02H633Z Insertion of Infusion Device into Right Atrium, Percutaneous Approach (ICD-10-PCS; 2022-02-03)
PROC: B548ZZA Ultrasonography of Superior Vena Cava, Guidance (ICD-10-PCS; 2022-02-03)
PROC: 4A023N7 Measurement of Cardiac Sampling and Pressure, Left Heart, Percutaneous Approach (ICD-10-PCS; 2022-02-04)
PROC: B2111ZZ Fluoroscopy of Multiple Coronary Arteries using Low Osmolar Contrast (ICD-10-PCS; 2022-02-04)
PROC: B2151ZZ Fluoroscopy of Left Heart using Low Osmolar Contrast (ICD-10-PCS; 2022-02-04)
DX: A41.9 Sepsis, unspecified organism (principal); J96.01 Acute respiratory failure with hypoxia; I46.2 Cardiac arrest due to underlying cardiac condition; I49.01 Ventricular fibrillation; K72.00 Acute and subacute hepatic failure without coma; N13.2 Hydronephrosis with renal and ureteral calculous obstruction; G93.1 Anoxic brain damage, not elsewhere classified; I42.8 Other cardiomyopathies; I47.2 Ventricular tachycardia; J98.11 Atelectasis; N17.9 Acute kidney failure, unspecified; Z68.42 Body mass index [BMI] 45.0-49.9, adult; E66.01 Morbid (severe) obesity due to excess calories; E83.42 Hypomagnesemia; E87.6 Hypokalemia; G43.909 Migraine, unspecified, not intractable, without status migrainosus; I49.3 Ventricular premature depolarization; Y92.009 Unspecified place in unspecified non-institutional (private) residence as the place of occurrence of the external cause; Z51.5 Encounter for palliative care; Z86.16 Personal history of COVID-19; Z87.442 Personal history of urinary calculi; Z20.822 Contact with and (suspected) exposure to COVID-19
CPT/HCPCS: 31500; 92950; 93458; 96365; 96367; 96375; 99291; G0269; 36415; 36556; 36569; 36600; 70450; 71045; 71250; 74176; 76937; 80048; 80053; 80061; 80307; 80329; 81001; 82805; 82962; 83605; 83735; 83880; 84100; 84132; 84443; 84484; 85007; 85025; 85520; 85610; 85730; 87040; 87086; 87426; 93005; 94002; 94003; 94760; C1892; C1894; G0480; J0282; J0295; J0692; J1644; J1650; J2250; J2270; J2405; J3010; J3370; J3475; J3480; J3490; J7030; J7040; J7060; Q9967; U0003; G0378